=== PATIENT | female | born 1950 | race Caucasian/White ===

== ENCOUNTER 2016-03-31 01:31 | Emergency (ER) | payer MEDICARE ==
[2016-03-31] MEDS ORDERED: HYDROcod/ACETAM 5/325 MG TABLET ONE (02:17)
[2016-03-31] MEDS ORDERED: HYDROcod/ACETAM 5/325 MG TABLET PO STA (02:20)
[2016-03-31] MEDS ORDERED: HYDROcod/ACET 5/325 Prepack 6 PO ONE ×2 (02:36→02:43)
[2016-03-31] MEDS ORDERED: DEXAMETHASONE 10 MG/ML VIAL PO STA (02:36)
[2016-03-31] MEDS ORDERED: CHERRY SYRUP 10 ML UDC PO ONE (02:43)
[2016-03-31] MEDS ORDERED: DEXAMETHASONE 10 MG/ML VIAL ONE (02:43)
== END 2016-03-31 03:00 | disposition home or self-care (01) ==
DX: S80.11XA Contusion of right lower leg, initial encounter (principal); W16.212A Fall in (into) filled bathtub causing other injury, initial encounter; Y93.E1 Activity, personal bathing and showering; Y92.002 Bathroom of unspecified non-institutional (private) residence as the place of occurrence of the external cause; F17.200 Nicotine dependence, unspecified, uncomplicated; I10 Essential (primary) hypertension
CPT/HCPCS: 73590; 99283; A9270

== ENCOUNTER 2016-06-28 02:39 | Outpatient (CLI) | payer MEDICARE | END 2016-06-28 02:40 | disposition critical access hospital (66) | DX: R07.9 Chest pain, unspecified (principal); R06.00 Dyspnea, unspecified; M54.9 Dorsalgia, unspecified | CPT/HCPCS: A0425; A0427 ==

== ENCOUNTER 2016-06-28 03:03 | Emergency (ER) | payer MEDICARE ==
[2016-06-28] MEDS ORDERED: oxyCODONE 5 MG TABLET PO STA (04:50)
[2016-06-28] MEDS ORDERED: CYCLOBENZAPRINE 10 MG TABLET PO STA (04:51)
[2016-06-28] MEDS ORDERED: CYCLOBENZAPRINE 10 MG TABLET PO ONE ×2 (04:56→04:59)
[2016-06-28] MEDS ORDERED: oxyCODONE 5 MG TABLET ONE (04:56)
== END 2016-06-28 05:11 | disposition home or self-care (01) ==
DX: M54.9 Dorsalgia, unspecified (principal); G89.29 Other chronic pain; R07.9 Chest pain, unspecified; I10 Essential (primary) hypertension; F17.200 Nicotine dependence, unspecified, uncomplicated
CPT/HCPCS: 36415; 71020; 80048; 85025; 99283; A9270

== ENCOUNTER 2017-02-09 11:23 | Emergency (ER) | payer MEDICARE ==
--- NOTE | 2017-02-09 13:33 | ED Physician Documentation ---
History of Present Illness - Stated complaint Stated Complaint: KNEE GIVING OUT - Chief complaint Chief Complaint: Trauma Ext - History obtained from History obtained from: Patient (pt states that for the past several days she has had pain in her right knee. she has been told that she has arthritis there. has swelling. no specific trauma, states that her knee "gives out".) Review of Systems Constitutional: denies: Fever, Chills Cardiac: denies: Chest pain / pressure Respiratory: denies: Dyspnea, Cough GI: denies: Abdominal Pain, Nausea, Vomiting : denies: Dysuria Skin: denies: Rash, Lesions Musculoskeletal: reports: Joint pain (right knee), Joint swelling (right knee). denies: Neck pain, Back pain Neurologic: denies: Generalized weakness, Syncope PD PAST MEDICAL HISTORY - Past Medical History Cardiovascular: Hypertension Respiratory: None Neuro: None Endocrine/Autoimmune: None GI: None FUNDING SPECIALIST: None : None HEENT: None Psych: None Musculoskeletal: Chronic back pain Derm: None - Past Surgical History Past Surgical History: Yes General: Cholecystectomy, Hiatal hernia repair Ortho: Carpal Tunnel surgery /FUNDING SPECIALIST: Hysterectomy - Present Medications Home Medications: Ambulatory Orders Medication Instructions Recorded Confirmed Atenolol 50 mg PO DAILY 09/01/13 02/09/17 Cyclobenzaprine [Flexeril] 10 mg PO TID PRN #20 tablet 03/27/15 02/09/17 Oxycodone HCl/Acetaminophen 1 - 2 each PO Q6H PRN #14 tablet 03/27/15 02/09/17 [Percocet 5-325 mg Tablet] HYDROcod/ACETAM 5/325 [[place] 5/325] 1 - 2 ea PO Q6H PRN #15 tablet 03/31/1602/14 Cyclobenzaprine [Flexeril] 10 mg PO TID PRN #20 tablet 06/28/16 02/09/17 hydroCHLOROthiazide 1 tab PO DAILY 06/28/16 02/09/17 [Hydrochlorothiazide] oxyCODONE/ACET 5/325 [Percocet 5 1 - 2 each PO Q6H PRN #14 tablet 06/28/1602/09 mg/325 mg] - Allergies Allergies/Adverse Reactions: Allergies Allergy/AdvReac Type Severity Reaction Status Date / Time Penicillins Allergy Hives Verified 02/09/17 11:53 - Social History Does the pt smoke?: Yes Smoking Status: Current every day smoker Does the pt drink ETOH?: Yes Does the pt have substance abuse?: No - Immunizations Immunizations are current?: Yes - POLST Patient has POLST: No PD ED PE NORMAL - Vitals Vital signs reviewed: Yes - General General: Alert and oriented X 3 - Cardiac Cardiac: Strong equal pulses (right DP) - Derm Derm: Normal color, Warm and dry, No rash - Extremities Extremities: No deformity, No calf tenderness / cord. No: No tenderness to palpate (TTP along medial and lateral joint line and most of the tenderness along the medial hamstring tendon. ), No edema - Neuro Neuro: Alert and oriented X 3, Other (senstion intact to right LE) - Psych Psych: Normal mood, Normal affect Results - Vitals Vitals: Vital Signs - 24 hr 02/09/17 11:37 Temperature 36.3 C L Heart Rate 75 Respiratory 20 Rate O2 Saturation 96 Oxygen O2 Source Room air PD MEDICAL DECISION MAKING - ED course Complexity details: d/w patient ED course: pt with chronic right knee pain. has some swelling of the knee. no instability. has had X-rays in the past. has appointment with ortho after the first of the year. will hold on X-rays today. doubt fracture. pt with TTP along the medical hamstring and joint line medial and lateral. doubt septic joint. pt given crutches. She will follow up as scheduled. Departure - Departure Disposition: Home, Self Care Clinical Impression: Knee injury Condition: Good Instructions: ED RICE Follow-Up: Valeriy Devi MD [Primary Care Provider] - Comments: Use the crutches as directed. Keep your follow up appointment in March. Return to the ER for any new or worsening symptoms.
== END 2017-02-09 13:49 | disposition home or self-care (01) ==
LOC: ED 11:23
DX: S89.91XA Unspecified injury of right lower leg, initial encounter (principal); X58.XXXA Exposure to other specified factors, initial encounter; I10 Essential (primary) hypertension; F17.200 Nicotine dependence, unspecified, uncomplicated
CPT/HCPCS: 99283

== ENCOUNTER 2017-05-08 17:06 | Emergency (ER) | payer MEDICARE ==
[2017-05-08] MEDS ORDERED: predniSONE 20 MG TABLET PO STA (19:00)
[2017-05-08] MEDS ORDERED: diphenhydrAMINE 25 MG CAPSULE PO STA (19:00)
--- NOTE | 2017-05-08 19:03 | ED Physician Documentation ---
History of Present Illness - Stated complaint Stated Complaint: HIVES - Chief complaint Chief Complaint: General - History obtained from History obtained from: Patient - History of Present Illness Timing: Today Pain level max: 4 Pain level now: 3 Improved by: nothing Worsened by: nothing - Additonal information Additional information: Patient is a 66-year-old female who is on clindamycin for a dental infection. She states she broke out in a rash over the past 24 hours. Took Zantac without relief. Review of Systems Constitutional: denies: Fever, Chills Nose: denies: Rhinorrhea / runny nose, Congestion Throat: reports: Dental pain / toothache (L upper premolar pain). denies: Sore throat Cardiac: denies: Chest pain / pressure Respiratory: denies: Cough GI: denies: Vomiting Musculoskeletal: denies: Neck pain, Back pain PD PAST MEDICAL HISTORY - Past Medical History Cardiovascular: Hypertension Respiratory: None Neuro: None Endocrine/Autoimmune: None GI: None BACK HAND: None : None HEENT: None Psych: None Musculoskeletal: Chronic back pain Derm: None - Past Surgical History Past Surgical History: Yes General: Cholecystectomy, Hiatal hernia repair Ortho: Carpal Tunnel surgery /BACK HAND: Hysterectomy - Present Medications Home Medications: Ambulatory Orders Medication Instructions Recorded Confirmed Atenolol 50 mg PO DAILY 09/01/13 02/09/17 Cyclobenzaprine [Flexeril] 10 mg PO TID PRN #20 tablet 03/27/15 02/09/17 Oxycodone HCl/Acetaminophen 1 - 2 each PO Q6H PRN #14 tablet 03/27/15 02/09/17 [Percocet 5-325 mg Tablet] HYDROcod/ACETAM 5/325 [[place] 5/325] 1 - 2 ea PO Q6H PRN #15 tablet 03/31/1602/14 Cyclobenzaprine [Flexeril] 10 mg PO TID PRN #20 tablet 06/28/16 02/09/17 hydroCHLOROthiazide 1 tab PO DAILY 06/28/16 02/09/17 [Hydrochlorothiazide] oxyCODONE/ACET 5/325 [Percocet 5 1 - 2 each PO Q6H PRN #14 tablet 06/28/1602/09 mg/325 mg] Doxycycline Hyclate 100 mg PO BID #20 tablet 05/08/17 predniSONE [Prednisone] 40 mg PO DAILY #10 tablet 05/08/17 - Allergies Allergies/Adverse Reactions: Allergies Allergy/AdvReac Type Severity Reaction Status Date / Time clindamycin Allergy Rash Verified 05/08/17 18:13 Penicillins Allergy Hives Verified 02/09/17 11:53 - Social History Does the pt smoke?: Yes Smoking Status: Current every day smoker Does the pt drink ETOH?: Yes Does the pt have substance abuse?: No - Immunizations Immunizations are current?: Yes - POLST Patient has POLST: No PD ED PE NORMAL - Vitals Vital signs reviewed: Yes - General General: Alert and oriented X 3, No acute distress - HEENT HEENT: PERRL, Moist mucous membranes, Pharynx benign - Neck Neck: Supple, no meningeal sign - Cardiac Cardiac: RRR - Respiratory Respiratory: No respiratory distress, Clear bilaterally - Derm Derm: Warm and dry, Other (Diffuse maculopapular exanthem, greatest over the face neck and trunk. Excoriation case present. Blanches easily) - Neuro Neuro: Alert and oriented X 3 - Psych Psych: Normal mood, Normal affect PD ED PE EXPANDED - HEENT HEENT Visual: 1 - tenderness (dental decay present. no abscess.) Results - Vitals Vitals: Vital Signs - 24 hr 05/08/17 05/08/17 18:11 19:06 Temperature 36.9 C 36.8 C Heart Rate 77 74 Respiratory 18 18 Rate Blood Pressure 138/88 H 154/95 H O2 Saturation 95 96 Oxygen O2 Source Room air PD MEDICAL DECISION MAKING - ED course Complexity details: considered differential, d/w patient ED course: Patient is a 66-year-old female who presents to the emergency department what appears to be an allergic reaction to clindamycin. We will have her stop this. We will transition her to doxycycline for her dental infection. She is well- appearing, nontoxic. No stridor. No wheezing. No anaphylaxis. Also will start on steroids. Also will utilize Benadryl at home. Patient counseled regarding signs and symptoms for which I believe and urgent re-evaluation would be necessary. Patient with good understanding of and agreement to plan and is comfortable going home at this time This document was made in part using voice recognition software. While efforts are made to proofread this document, sound alike and grammatical errors may occur. Departure - Departure Disposition: 01 Home, Self Care Clinical Impression: Drug eruption Condition: Good Instructions: ED Drug React Allergic Follow-Up: Valeriy Devi MD [Primary Care Provider] - Within 1 week Prescriptions: Doxycycline Hyclate 100 mg PO BID #20 tablet predniSONE [Prednisone] 40 mg PO DAILY #10 tablet Comments: Stop the clindamycin. Return if you worsen. Discharge Date/Time: 05/08/17 19:11
[2017-05-08 19:07] VITALS: BP 154/95
== END 2017-05-08 19:11 | disposition home or self-care (01) ==
LOC: ED 17:06
DX: L27.0 Generalized skin eruption due to drugs and medicaments taken internally (principal); T36.8X5A Adverse effect of other systemic antibiotics, initial encounter; I10 Essential (primary) hypertension; F17.200 Nicotine dependence, unspecified, uncomplicated; K04.7 Periapical abscess without sinus
CPT/HCPCS: 99283; A9270; J7512

== ENCOUNTER 2018-02-27 23:41 | Outpatient (CLI) | payer MEDICARE | END 2018-02-27 23:59 | disposition critical access hospital (66) | LOC: EMS 23:41 | PROVIDERS: ATTEND Surgery | DX: R07.9 Chest pain, unspecified (principal) | CPT/HCPCS: A0425; A0427 ==

== ENCOUNTER 2018-02-28 00:04 | Observation (INO) | payer MEDICARE ==
[2018-02-28] MEDS ORDERED: NITROGLYCERIN SL 0.4 MG TABLET SL STA (00:24)
--- NOTE | 2018-02-28 00:28 | ED Physician Documentation ---
History of Present Illness - Stated complaint Stated Complaint: CHEST PAIN - Chief complaint Chief Complaint: Cardiac - Additonal information Additional information: hx from pt 67 female to ED with chest discomfort sometimes dull ache sometimes sharp occurred and was mild 3 days ago got better when she went to sleep possibly some mild pain in between no specific precipitating or palliating factors but then tonight severe pain 6/10 rad to left jaw tingling to L arm no SOA no abd pain no NVD bing LE edema and L leg is painful no personal hx CAD but family hx of same has HTN denies HLD and DM occ smoker severe stress recently - and some EtOH 2/2 the stress Review of Systems Constitutional: denies: Fever, Chills, Sweats Cardiac: reports: Chest pain / pressure Respiratory: denies: Dyspnea GI: denies: Abdominal Pain, Nausea, Vomiting, Diarrhea Musculoskeletal: reports: Extremity pain (LLE), Extremity swelling (both LE) Neurologic: denies: Generalized weakness Endocrine: denies: Easy bruising / bleeding Immunocompromised: denies: Immunocompromised PD PAST MEDICAL HISTORY - Past Medical History Past Medical History: Yes Cardiovascular: Hypertension Respiratory: None Endocrine/Autoimmune: None GI: None 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 : None HEENT: None Psych: None Musculoskeletal: Chronic back pain Derm: None - Past Surgical History Past Surgical History: Yes General: Cholecystectomy, Hiatal hernia repair Ortho: Carpal Tunnel surgery /LAND USE PLANNER: Hysterectomy - Present Medications Home Medications: Ambulatory Orders Medication Instructions Recorded Confirmed Atenolol 50 mg PO DAILY 09/01/13 02/28/18 HYDROcod/ACETAM 5/325 [[place] 5/325] 1 - 2 ea PO Q6H PRN #15 tablet 03/31/16 02/28/18 Cyclobenzaprine [Flexeril] 10 mg PO TID PRN #20 tablet 06/28/16 02/28/18 hydroCHLOROthiazide 1 tab PO DAILY 06/28/16 02/28/18 [Hydrochlorothiazide] - Allergies Allergies/Adverse Reactions: Allergies Allergy/AdvReac Type Severity Reaction Status Date / Time clindamycin Allergy Rash Verified 02/28/18 00:24 Penicillins Allergy Hives Verified 02/28/18 00:24 Iodine and Iodide Containing AdvReac Emesis Verified 02/28/18 01:13 Produc - Social History Does the pt smoke?: Yes Smoking Status: Current every day smoker Does the pt drink ETOH?: Yes Does the pt have substance abuse?: No - Immunizations Immunizations are current?: Yes - POLST Patient has POLST: No PD ED PE NORMAL - Vitals Vital signs reviewed: Yes - General General: Alert and oriented X 3 - HEENT HEENT: PERRL - Neck Neck: Supple, no meningeal sign - Cardiac Cardiac: RRR - Respiratory Respiratory: No respiratory distress - Abdomen Abdomen: Soft, Non tender - Derm Derm: Normal color - Extremities Extremities: No calf tenderness / cord (+ TTP L calf). 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 2-12 intact, No motor deficit, No sensory deficit, Normal speech Eye Opening: Spontaneous Motor: Obeys Commands Verbal: Oriented GCS Score: 15 Results - Vitals Vitals: Vital Signs - 24 hr 02/28/18 02/28/18 02/28/18 00:05 00:19 00:23 Temperature 36.6 C Heart Rate 89 79 81 Respiratory 13 13 Rate Blood Pressure 150/109 H 150/109 H 144/84 H Blood Pressure 150/109 H [Left] Blood Pressure 144/84 H [Right] O2 Saturation 95 96 96 02/28/18 02/28/18 02/28/18 00:33 00:45 00:50 Temperature Heart Rate 87 99 86 Respiratory 28 H 18 16 Rate Blood Pressure 101/70 121/89 H 102/68 Blood Pressure [Left] Blood Pressure [Right] O2 Saturation 94 94 95 02/28/18 02/28/18 02/28/18 01:06 01:44 02:05 Temperature 36.4 C L Heart Rate 79 82 79 Respiratory 28 H 16 17 Rate Blood Pressure 104/55 L 103/69 154/132 H Blood Pressure [Left] Blood Pressure [Right] O2 Saturation 95 95 98 02/28/18 02:21 Temperature Heart Rate 78 Respiratory 17 Rate Blood Pressure 121/80 Blood Pressure [Left] Blood Pressure [Right] O2 Saturation 100 Oxygen O2 Source Room air - EKG (time done) 0009 Rate: Rate (enter#) (88) Rhythm: NSR Cochran: LAD Intervals: Normal CA Ischemia: Non specific changes (flat T waves precordial leads) Compare to prior EKG: Other (similar to 2013 EKG) - Labs Labs: Laboratory Tests 02/28/18 02/28/18 02/28/18 00:15 00:15 00:15 WBC 10.6 RBC 4.55 Hgb 14.5 Hct 42.5 MCV 93.2 MCH 31.9 H MCHC 34.2 RDW 14.2 Plt Count 188 MPV 8.3 Neut # (Auto) 5.3 Lymph # (Auto) 4.1 H Kend[place] # (Auto) 0.9 Eos # (Auto) 0.2 Baso # (Auto) 0.1 Absolute Nucleated RBC 0.01 Nucleated RBC % 0.0 Sodium 128 L Potassium 3.1 L Chloride 90 L Carbon Dioxide 26 Anion Gap 12.0 BUN 14 Creatinine 0.5 Estimated GFR (MDRD) 123 Glucose 93 Calcium 8.7 Total Bilirubin 0.9 AST 40 ALT 19 Alkaline Phosphatase 77 Troponin I < 0.04 Total Protein 7.9 Albumin 4.1 Globulin 3.8 Albumin/Globulin Ratio 1.1 Lipase 35 - Rads (name of study) CTPA Radiology: See rad report (normal - no PE) PD MEDICAL DECISION MAKING - ED course ED course: pt given asa en route pain relieved with nitro sl X 2 EKG non specific trop neg had LLE pain and bing LE edema - her allergy to IV con and CT are NV from c ontrast and claustrophobia - pretreated with zofran and ativan and pt did fine pain has been off and on for several days not constant, worse tonight HEART score of 5 merits observation for serial trop, echo, hopefully stress test called hospitalist at 0255 and he called back immed and agrees to place in obs Departure - Departure Disposition: ED Place in Observation Clinical Impression: Chest pain Qualifiers: Chest pain type: unspecified Qualified Code(s): R07.9 - Chest pain, unspecified Condition: Good
[2018-02-28 00:32] LABS: BASOPHILS # (AUTO) 0.1 10^3/uL (0.0-0.1); BASOPHILS % (AUTO) 0.9 %; EOSINOPHILS # (AUTO) 0.2 10^3/uL (0.0-0.7); EOSINOPHILS % (AUTO) 1.8 %; HGB - HEMOGLOBIN 14.5 g/dL (12.0-16.0); LYMPHOCYTES # (AUTO) 4.1 10^3/uL (1.5-3.5); LYMPHOCYTES % (AUTO) 38.8 %; MEAN CORPUSCULAR HEMOGLOBIN 31.9 pg (27.0-31.0); MEAN CORPUSCULAR HGB CONC 34.2 g/dL (32.0-36.0); MEAN CORPUSCULAR VOLUME 93.2 fL (81.0-99.0); MEAN PLATELET VOLUME 8.3 fL (7.9-10.8); MONOCYTES # (AUTO) 0.9 10^3/uL (0.0-1.0); MONOCYTES % (AUTO) 8.9 %; NEUTROPHILS # (AUTO) 5.3 10^3/uL (1.5-6.6); NEUTROPHILS % (AUTO) 49.6 %; PLT - PLATELET COUNT 188 10^3/uL (130-450); RED BLOOD COUNT 4.55 10^6/uL (4.20-5.40); RED CELL DISTRIBUTION WIDTH 14.2 % (12.0-15.0); WHITE BLOOD COUNT 10.6 x10^3/uL (4.8-10.8)
[2018-02-28 00:38] LABS: ALBUMIN 4.1 g/dL (3.2-5.5); ALBUMIN/GLOBULIN RATIO 1.1 (1.0-2.2); BILIRUBIN,TOTAL 0.9 mg/dL (0.2-1.0); CALCIUM 8.7 mg/dL (8.5-10.3); CREATININE 0.5 mg/dL (0.4-1.0); TOTAL PROTEIN 7.9 g/dL (6.7-8.2)
[2018-02-28] MEDS ORDERED: POTASSIUM CHLOR 10 MEQ/100 ML 10 MEQ/100 ML BAG IV STA (00:48)
[2018-02-28] MEDS ORDERED: SODIUM CHLORIDE 0.9% 500 ML IV ONE (01:01)
[2018-02-28] MEDS ORDERED: ONDANSETRON 4 MG/2 ML VIAL IVP STA (01:19)
[2018-02-28] MEDS ORDERED: LORazepam 2 MG/ML VIAL IVP STA (01:19)
[2018-02-28] MEDS ORDERED: IOPAMIDOL-370 100 ML VIAL ONE (01:23)
[2018-02-28] MEDS ORDERED: IOVERSOL 320 100 ML VIAL IVP ONE ×3 (02:14→16:54)
--- NOTE | 2018-02-28 02:31 | CT Report ---
Reason: cp and LLMatthias hua TTP Procedure Date: 02/28/2018 Accession Number: [id number] / [id number] Procedure: CT - Chest Angio (PE) CPT Code: FULL RESULT: EXAM: CT ANGIOGRAM CHEST EXAM DATE: 02/28/2018 02:12 AM. CLINICAL HISTORY: Cp and INDIO hua TTP. COMPARISON: None. TECHNIQUE: Routine helical imaging was performed through the chest in the pulmonary arterial phase. IV Contrast: 80 ML OPTIRAY 320. Reconstructions: Coronal 3-D MIP reconstructions.Sagittal and coronal. In accordance with CT protocol optimization, one or more of the following dose reduction techniques were utilized for this exam: automated exposure control, adjustment of mA and/or KV based on patient size, or use of iterative reconstructive technique. FINDINGS: Pulmonary Arteries: Diagnostic quality: Adequate through the segmental arteries. No evidence for acute or chronic pulmonary emboli. RV/LV is within normal limits. There is no interventricular septal bowing. There is no reflux of contrast material in the IVC. Lungs/Pleura: No consolidation, nodules, or edema. No effusions or pneumothorax. Mediastinum: Normal. No cardiac enlargement or adenopathy. Thoracic Aorta: Unremarkable. Upper Abdomen: Postoperative changes of cholecystectomy. Other: None. IMPRESSION: Normal pulmonary CT angiogram. No pulmonary emboli. RADIA
[2018-02-28] MEDS ORDERED: TEMAZEPAM 15 MG CAPSULE PO PRN (02:57)
[2018-02-28] MEDS ORDERED: HYDROcod/ACETAM 5/325 MG TABLET PO PRN (02:57)
[2018-02-28] MEDS ORDERED: ONDANSETRON 4 MG/2 ML VIAL IVP PRN (02:57)
[2018-02-28] MEDS ORDERED: SODIUM CHLORIDE FLUSH 0.9% 10 ML SYRINGE IVP PRN (02:57)
[2018-02-28] MEDS ORDERED: MORPHINE 2 MG/ML CARPUJECT IVP PRN (02:57)
[2018-02-28] MEDS ORDERED: PROCHLORPERAZINE 10 MG/2 ML VIAL IVP PRN (02:57)
[2018-02-28] MEDS ORDERED: ACETAMINOPHEN 325 MG TABLET PO PRN (02:57)
[2018-02-28] MEDS ORDERED: SODIUM CHLORIDE 0.9% 1,000 ML IV SCH (03:00)
[2018-02-28] MEDS ORDERED: CYCLOBENZAPRINE 10 MG TABLET PO PRN (03:03)
[2018-02-28] MEDS ORDERED: POTASSIUM CHLORIDE 20 MEQ TABLET PO STA (03:03)
[2018-02-28] MEDS ORDERED: hydrALAZINE INJ 20 MG/ML VIAL IVP PRN (03:04)
[2018-02-28 03:41] LABS: BUN - BLOOD UREA NITROGEN 12 mg/dL (6-20); CALCIUM 8.4 mg/dL (8.5-10.3); CARBON DIOXIDE - CO2 26 mmol/L (21-32); CHLORIDE 93 mmol/L (101-111); CHOL/HDL RATIO 4.4 (<4.4); CHOLESTEROL 209 mg/dL; CREATININE 0.6 mg/dL (0.4-1.0); GFR - MDRD 100 (>89); GLUCOSE 82 mg/dL (70-100); HDL CHOLESTEROL 47 mg/dL; LDL CHOLESTEROL,CALCULATED 87 mg/dL; LDL/HDL RATIO 1.9 (<4.4); SODIUM 131 mmol/L (135-145); VLDL CHOLESTEROL 75 mg/dL
[2018-02-28] MEDS ORDERED: LORazepam 2 MG/ML VIAL IVP PRN (06:46)
[2018-02-28] MEDS ORDERED: NITROGLYCERIN SL 0.4 MG TABLET SL PRN (06:47)
--- NOTE | 2018-02-28 06:49 | HISTORY & PHYSICAL EXAMINATION ---
Chief Complaint - Chief Complaint Chief Complaint: Chest Pain History of Present Illness - Admitted From Admitted From:: Emergency department - History Obtained From Records Reviewed: ED records History obtained from: Patient and ED physician Exam Limitations: None - History of Present Illness HPI Comment/Other: Patient is a 67-year-old female with a past medical history of hypertension, intermittent smoking, who presents to the emergency room with 2 days of progressively worsening and intermittent left-sided chest pain with radiation to the neck and left jaw, which is exacerbated by activity. Patient states that without any known provocation, she noticed chest pain with radiation and tingling in the left arm that worsens with radiation the last couple of days, which improved when she took an aspirin at home. She finally came to the emergency room where the evaluation was initiated for acute coronary syndrome. The initial troponin was negative and EKG showed only some flattening of T waves but otherwise no specific concerning findings. After observation and improvement with nitroglycerin and aspirin in the emergency room, I was asked to admit the patient into observation status for ruling out [place]. Patient has not had any prior cardiac episodes, and has never had a stress test before. History - Past Medical History Cardiovascular: reports: Hypertension Respiratory: reports: None Neuro: reports: None Endocrine/Autoimmune: reports: None GI: reports: None CORPORATE PLANNING MANAGER: reports: None : reports: None HEENT: reports: None Psych: reports: None Musculoskeletal: reports: Chronic back pain Derm: reports: None MRSA Hx?: No - Past Surgical History General: reports: Cholecystectomy, Hiatal hernia repair Ortho: reports: Carpal Tunnel surgery /CORPORATE PLANNING MANAGER: reports: Hysterectomy - Family & Social History Family History: Mother: CAD, CVA/TIA, Father: CAD Living arrangement: At home Living Situation: With spouse/s.o. - Substance History Use: Uses substance without health or social issues: Tobacco - POLST Patient has POLST: No POLST Status: Patient wants CPR but no intubation Meds/Allgy - Home Medications Home Medications: Ambulatory Orders Medication Instructions Recorded Confirmed Atenolol 50 mg PO DAILY 09/01/13 02/28/18 HYDROcod/ACETAM 5/325 [[place] 5/325] 1 - 2 ea PO Q6H PRN #15 tablet 03/31/16 02/28/18 Cyclobenzaprine [Flexeril] 10 mg PO TID PRN #20 tablet 06/28/16 02/28/18 hydroCHLOROthiazide 1 tab PO DAILY 06/28/16 02/28/18 [Hydrochlorothiazide] - Allergies Allergies/Adverse Reactions: Allergies Allergy/AdvReac Type Severity Reaction Status Date / Time clindamycin Allergy Rash Verified 02/28/18 00:24 Penicillins Allergy Hives Verified 02/28/18 00:24 Iodine and Iodide Containing AdvReac Emesis Verified 02/28/18 01:13 Produc Review of Systems - Constitutional Constitutional: denies: Fatigue, Fever, Chills - Eyes Eyes: denies: Pain - Ears, Nose & Throat Ears, Nose & Throat: denies: Ear pain, Hearing loss, Hearing aids - Cardiovascular Cariovascular: reports: Chest pain, Exertional dyspnea, Decr. exercise tolerance. denies: Irregular heart rate, Palpitations, Edema, Lightheadedness, Syncope, Orthopnea - Respiratory Respiratory: reports: SOB with exertion. denies: Cough, Sputum production, Wheezing, Snoring, Orthopnea, SOB at rest - Gastrointestinal Gastrointestinal: denies: Abdominal pain - Genitourinary Genitourinary: denies: Dysuria - Musculoskeletal Musculoskeletal: reports: Muscle pain - All Other Systems All Other Systems: reports: Reviewed and negative Prior Level of Functionality: Independent Exam - Vital Signs Reviewed Vital Signs: Yes Vital Signs: Vital Signs x48h Temp Pulse Pulse Resp BP BP BP 02/28/18 04:27 02/28/18 04:25 02/28/18 04:19 36.5 C 79 22 118/65 02/28/18 03:45 36.3 C L 85 22 101/58 L 02/28/18 03:04 36.3 C L 77 18 108/68 02/28/18 02:57 75 14 145/72 H 02/28/18 02:21 78 17 121/80 02/28/18 02:05 79 17 154/132 H 02/28/18 01:44 82 16 103/69 02/28/18 01:06 36.4 C L 79 28 H 104/55 L 02/28/18 00:50 86 16 102/68 02/28/18 00:45 99 18 121/89 H 02/28/18 00:33 87 28 H 101/70 02/28/18 00:23 81 13 144/84 H 02/28/18 00:19 79 13 150/109 H 02/28/18 00:05 36.6 C 89 150/109 H 150/109 H BP Pulse Ox 02/28/18 04:27 98 02/28/18 04:25 91 L 02/28/18 04:19 98 02/28/18 03:45 99 02/28/18 03:04 99 02/28/18 02:57 95 02/28/18 02:21 100 02/28/18 02:05 98 02/28/18 01:44 95 02/28/18 01:06 95 02/28/18 00:50 95 02/28/18 00:45 94 02/28/18 00:33 94 02/28/18 00:23 96 02/28/18 00:19 96 02/28/18 00:05 144/84 H 95 - Physical Exam General Appearance: positive: No acute distress Eyes Bilateral: positive: Normal inspection ENT: positive: ENT inspection nml Neck: positive: Nml inspection, Thyroid nml Respiratory: positive: No respiratory distress, Other (There is tenderness to the chest wall at the left superior aspect) Cardiovascular: positive: Regular rate & rhythm, No murmur, No gallop. negative: Tachycardia, Bradycardia Abdomen: positive: Non-tender, No organomegaly, Nml bowel sounds Skin: positive: Color nml, No rash, Warm Extremities: positive: Non-tender, No pedal edema Neurologic/Psychiatric: positive: Oriented x3, CN's nml (2-12), Motor nml Conclusion/Plan - Problem List (1) Chest pain Conclusion/Plan: Patient has significant risk factors including age, family history, smoking, and history of heavy alcohol use. She also has chest pain that improved with aspirin and nitroglycerin and worsens with exacerbation. Her workup is so far reassuring, including the labs and CT angiogram. It is however somewhat tender to palpation along the chest wall, but given her risk factors I agree with the admission for observation status to continue serial troponins and stress test, echocardiogram, to rule out for acute coronary syndrome and further guide treatment. In the meantime, we will continue aspirin and nitroglycerin and blood pressure control and initiate statin. Qualifiers: Chest pain type: precordial pain Qualified Code(s): R07.2 - Precordial pain (2) Hypertension Conclusion/Plan: Blood pressures currently well controlled, she takes atenolol at home but I will hold this for the purpose of the exercise stress test and have allowed for as needed hydralazine. After the stress test, likely can resume her home medication. Qualifiers: Hypertension type: essential hypertension Qualified Code(s): I10 - [place] l (primary) hypertension (3) Hypokalemia Conclusion/Plan: Mild hypokalemia, initiated potassium replacement. (4) Hyponatremia Conclusion/Plan: Mild hyponatremia, no clear underlying etiology. Will administer IV fluids and follow-up serial metabolic panel. (5) Hyperlipidemia Conclusion/Plan: Fasting labs demonstrate significant hyperlipidemia, will start the patient on a statin. Qualifiers: Hyperlipidemia type: mixed hyperlipidemia Qualified Code(s): E78.2 - Mixed hyperlipidemia (6) Chronic back pain Conclusion/Plan: Chronic back pain, continue home pain medications as needed. - Lab Results Lab results reviewed: Yes Fish Bones: 02/28/18 00:15 02/28/18 03:16 - Diagnostic Imaging Results Diagnostic Imaging Results: positive: Final report reviewed - EKG Results EKG Interpreted Independently: Yes EKG Comparison: Old EKG unavailable - Other Other Results/Comments: Nonspecific T wave flattening, no ST segment depression or elevation Core Measures - Anticipated LOS I expect patient to be DC'd or transferred within 96 hours.: Yes - DVT/VTE - Prophylaxis VTE/DVT Device ordered at admit?: Yes - AMI - Statin at Admit Aspirin Prescribed on Admit: Yes
[2018-02-28] MEDS ORDERED: PANTOPRAZOLE 40 MG TABLET PO SCH (07:00)
[2018-02-28] MEDS ORDERED: POTASSIUM CHLORIDE 20 MEQ TABLET PO ONE (07:26)
[2018-02-28] MEDS ORDERED: IBUPROFEN 600 MG TABLET PO PRN (08:19)
[2018-02-28] MEDS ORDERED: hydroCHLOROthiazide 25 MG TABLET PO SCH (09:00)
[2018-02-28] MEDS ORDERED: ASPIRIN EC 81 MG TABLET PO SCH (09:00)
[2018-02-28] MEDS ORDERED: LISINOPRIL 20 MG TABLET PO SCH (09:00)
[2018-02-28] MEDS ORDERED: ASPIRIN 325 MG TABLET PO SCH (09:00)
[2018-02-28] MEDS ORDERED: SODIUM CHLORIDE FLUSH 0.9% 10 ML SYRINGE IVP SCH (09:00)
[2018-02-28] MEDS ORDERED: IBUPROFEN 600 MG TABLET PO SCH (09:00)
[2018-02-28] MEDS ORDERED: POLYETHYLENE GLYCOL 3350 17 GM PACKET PO SCH (09:00)
[2018-02-28] MEDS ORDERED: REGADENOSON 0.4 MG/5 ML SYRINGE IVP ONE ×2 (11:20→13:44)
--- NOTE | 2018-02-28 12:41 | PROCEDURE REPORT ---
Hospitalist Procedure Note - Procedure Note Procedure Note: EKG stress test Impression: Patient had no shortness of breath, chest pain or palpitations with stress or prior to starting stress test. Patient had no EKG changes during the stress test. Prior to stress test patient did have some flattened T waves in the inferior leads but these remained unchanged throughout stress test. Patient's blood pressure remained stable and patient had no complaints. Overall this was a negative stress test Myocardial perfusion imaging is pending we will follow-up on these results.
--- NOTE | 2018-02-28 14:28 | Nuclear Medicine Report ---
Reason: chest pain Procedure Date: 02/28/2018 Accession Number: [id number] / [id number] Procedure: NM - Myocardial Perfusion STR/RST CPT Code: FULL RESULT: EXAM: SINGLE-ISOTOPE PHARMACOLOGICAL STRESS TEST WITH REGADENOSON. SINGLE-ISOTOPE AND ONE-DAY REST/STRESS MYOCARDIAL PERFUSION SCANS WITH TOMOGRAPHIC IMAGING, QUANTITATIVE ANALYSIS, WALL MOTION ANALYSIS AND CALCULATION OF EJECTION FRACTION. EXAM DATE: 02/28/2018 01:45 PM. CLINICAL HISTORY: Chest pain. COMPARISON: None. TECHNIQUE: After the intravenous administration of 9.9 mCi of Tc-99m sestamibi, a rest myocardial perfusion scan was done with tomography. Motion correction was applied when appropriate. After an appropriate delay, pharmacological stress was performed with the infusion of 0.4 mg regadenoson per protocol. According to protocol, 32.0 mCi of Tc-99m sestamibi was injected for stress myocardial perfusion scan. Motion correction was applied when appropriate. Gated tomographic images were obtained for wall motion analysis and computation of left ventricular ejection fraction. FINDINGS: Perfusion images: Left ventricular chamber size is normal at rest and unchanged at stress. No convincing fixed perfusion deficits. Small size region of mildly reduced uptake at the mid to basal inferolateral wall on stress images appears improved on rest images, suspicious for mild stress-induced ischemia. SSS 11, SRS 8, SDS 3. Gated images: No focal wall motion abnormality. Calculated left ventricular EDV 45 mL, ESV 2 mL. The left ventricular ejection fraction is estimated at 96% (normal > 50%). IMPRESSION: 1. Small size, mild severity reversible perfusion deficit at the mid to basal inferolateral wall, suspicious for mild stress-induced ischemia. 2. No convincing fixed perfusion deficits. 3. Left ventricular ejection fraction of 96% (normal > 50%). RADIA
[2018-02-28] MEDS ORDERED: ATENOLOL 25 MG TABLET PO SCH (15:00)
[2018-02-28 15:19] VITALS: BP 118/56
--- NOTE | 2018-02-28 15:44 | Discharge Plan ---
Discharge Plan Disposition: Home, Self Care Condition: Poor Prescriptions: Nitroglycerin [Nitrostat] 0.4 mg SL Q5MIN PRN #30 tablet PRN Reason: Chest Pain Aspirin [Adult Aspirin Regimen] 81 mg PO DAILY #15 tablet. Atorvastatin [Lipitor] 40 mg PO QPM #15 tablet Diet: Cardiac Activity Restrictions: Activity as Tolerated Shower Restrictions: No (fall precaution) Instruction Topics: ED Chest Pain Angina Stable, Atorvastatin tablets, Nitroglycerin Fast Act Dc, Aspirin ASA chewable tablets Additional Instructions or Follow Up instructions: You may followup your PCP in one week, followup a instructional systems specialist as out-pt. Your stress test reveals small size, mild severity reversible perfusion deficit, suspicious for mild stress-induced ischemia. Historical Site Guide was called. Historical Site Guide suggests it is a low risk, followup instructional systems specialist as out-pt, start Aspirin, beta-rea and Statin. Should your symptoms return or worsen, you may present ER, call 911 or your PCP for help No Smoking: If you smoke, Please STOP! Call for help. Follow-up with: Valeriy Devi MD [Primary Care Provider] -
--- NOTE | 2018-02-28 15:53 | DISCHARGE SUMMARY ---
"Discharge Summary Discharge Date: 02/28/18 Discharging Provider: DURBIN Primary Care Provider: Dr. Devi Condition at Discharge: Poor Discharge Disposition: 01 Home, Self Care Discharge Facility Name: home - DIAGNOSES Admission Diagnoses: (1) Chest pain (2) Hypertension (3) Hypokalemia (4) Hyponatremia (5) Hyperlipidemia (6) Chronic back pain Discharge Diagnoses with Status of Each Condition: 1) Chest pain pt has no more chest pain. serial troponin, EKG, and ECHO reveals unremarkable. stress test reveals small size, mild severity reversible perfusion deficit, suspicious for mild stress-induced ischemia. Manager Business Operations Dr. Jordy Pinto at [facility], was called. Manager Business Operations suggests it is a low risk, followup automotive service director as out-pt, start Aspirin, beta-rea and Statin. (2) Hypertension stable, continue home regimen, followup PCP (3) Hypokalemia replaced (4) Hyponatremia chronic hyponatremia, improved (5) Hyperlipidemia pt is prescribed lipitor (6) Chronic back pain stable, continue home regimen, follow up PCP - HPI History of Present Illness: refer from Dr. Cowan's HPI on 02/28/18 for pt as the following: Patient is a 67-year-old female with a past medical history of hypertension, intermittent smoking, who presents to the emergency room with 2 days of progressively worsening and intermittent left-sided chest pain with radiation to the neck and left jaw, which is exacerbated by activity. Patient states that without any known provocation, she noticed chest pain with radiation and tingling in the left arm that worsens with radiation the last couple of days, which improved when she took an aspirin at home. She finally came to the emergency room where the evaluation was initiated for acute coronary syndrome. The initial troponin was negative and EKG showed only some flattening of T waves but otherwise no specific concerning findings. After observation and improvement with nitroglycerin and aspirin in the emergency room, I was asked to admit the patient into observation status for ruling out [place]. Patient has not had any prior cardiac episodes, and has never had a stress test before. - CONSULTS | PROCEDURES Consultations: Manager Business Operations DR. Jordy Pinto - HOSPITAL COURSE Hospital Course: pt was admitted for chest pain. after treatment in hospital, pt has no more chest pain. pt's serial troponin, EKG, and ECHO reveals unremarkable. stress test reveals small size, mild severity reversible perfusion deficit, suspicious for mild stress-induced ischemia. Manager Business Operations Dr. Jordy Pinto at [facility], was called. Manager Business Operations suggests it is a low risk, followup automotive service director as out-pt, start Aspirin, beta-rea and Statin. - ALLERGIES Allergies/Adverse Reactions: Allergies Allergy/AdvReac Type Severity Reaction Status Date / Time clindamycin Allergy Rash Verified 02/28/18 00:24 Penicillins Allergy Hives Verified 02/28/18 00:24 Iodine and Iodide Containing AdvReac Emesis Verified 02/28/18 01:13 Produc - MEDICATIONS Home Medications: Ambulatory Orders Medication Instructions Recorded Confirmed Atenolol 50 mg PO DAILY 09/01/13 02/28/18 HYDROcod/ACETAM 5/325 [[place] 5/325] 1 - 2 ea PO Q6H PRN #15 tablet 03/31/16 02/28/18 Cyclobenzaprine [Flexeril] 10 mg PO TID PRN #20 tablet 06/28/16 02/28/18 hydroCHLOROthiazide 25 mg PO DAILY 06/28/16 02/28/18 [Hydrochlorothiazide] Aspirin [Adult Aspirin Regimen] 81 mg PO DAILY #15 tablet. 02/28/18 Atorvastatin [Lipitor] 40 mg PO QPM #15 tablet 02/28/18 Meloxicam 15 mg PO DAILY 02/28/18 02/28/18 Nitroglycerin [Nitrostat] 0.4 mg SL Q5MIN PRN #30 tablet 02/28/18 raNITIdine [Zantac] 150 mg PO BID 02/28/18 02/28/18 - PHYSICAL EXAM AT DISCHARGE General Appearance: positive: No acute distress, Alert. negative: Lethargic Eyes Bilateral: positive: Normal inspection, PERRL, No lid inflammation, Conju nctivae nml ENT: positive: ENT inspection nml, Pharynx nml, No signs of dehydration. negative: Purulent nasal drainage, Pharyngeal erythema, Oral lesions Neck: positive: Nml inspection, Thyroid nml, No JVD, Trachea midline. negative: Thyromegaly, Lymphadenopathy (R), Lymphadenopathy (L), Stiff neck, Swelling/bruising, Tracheal deviation Respiratory: positive: Chest non-tender, No respiratory distress, Breath sounds nml. negative: Wheezes, Rales, Rhonchi Cardiovascular: positive: Regular rate & rhythm, No murmur, No gallop. negative: Irregularly irregular, Extrasystoles, Tachycardia, Bradycardia, JVD present, Systolic murmur, Diastolic murmur Peripheral Pulses: positive: 2+ Abdomen: positive: Non-tender, No organomegaly, Nml bowel sounds, No distention. negative: Tenderness, Guarding, Rebound Back: positive: Nml inspection. negative: CVA tenderness (R), CVA tenderness (L) Skin: positive: Color nml, No rash, Warm, Dry. negative: Cyanosis, Diaphoresis, Pallor Extremities: positive: Non-tender, Full ROM, Nml appearance. negative: Calf tenderness, Joint swelling, Ne's sign/cords Neurologic/Psychiatric: positive: Oriented x3, Motor nml, Sensation nml, Mood/affect nml. negative: Weakness, Sensory loss, Facial droop, Slurred/abnml speech, Depressed mood/affect - LABS Result Diagrams: 02/28/18 00:15 02/28/18 03:16 - FOLLOW UP Follow Up: You may followup your PCP in one week, followup a automotive service director as out-pt. Your stress test reveals small size, mild severity reversible perfusion deficit, suspicious for mild stress-induced ischemia. Manager Business Operations was called. Manager Business Operations suggests it is a low risk, followup automotive service director as out-pt, start A spirin, beta-rea and Statin. Should your symptoms return or worsen, you may present ER, call 911 or your PCP for help - TIME SPENT Time Spent in Discharge (Minutes): 60"
[2018-02-28] MEDS ORDERED: ATORVASTATIN 40 MG TABLET PO SCH (21:00)
[2018-03-01] MEDS ORDERED: ASPIRIN EC 81 MG TABLET PO SCH (09:00)
== END 2018-02-28 16:55 | disposition home or self-care (01) ==
LOC: EDUNIT# → ED 00:04 → ICU 02:57 → MS2 04:08
PROVIDERS: ADMIT Family Medicine Sports Medicine; ATTEND Nurse Practitioner Gerontology
DX: R07.2 Precordial pain (principal); R94.39 Abnormal result of other cardiovascular function study; I10 Essential (primary) hypertension; E87.6 Hypokalemia; E87.1 Hypo-osmolality and hyponatremia; E78.5 Hyperlipidemia, unspecified; G89.29 Other chronic pain; M54.9 Dorsalgia, unspecified; Z66 Do not resuscitate; F17.200 Nicotine dependence, unspecified, uncomplicated; Z82.49 Family history of ischemic heart disease and other diseases of the circulatory system; Z79.891 Long term (current) use of opiate analgesic; Z79.899 Other long term (current) drug therapy
CPT/HCPCS: 36415; 71275; 78452; 80048; 80053; 80061; 83690; 84484; 85025; 93005; 93017; 93306; 96361; 96365; 96366; 96375; 96376; 99284; 99285; A9270; A9500; G0378; J2060; J2785; Q9967; 83721

== ENCOUNTER 2018-05-20 23:14 | Outpatient (CLI) | payer MEDICARE | END 2018-05-20 23:15 | disposition critical access hospital (66) | LOC: EMS 23:14 | PROVIDERS: ATTEND Surgery | DX: R07.9 Chest pain, unspecified (principal) | CPT/HCPCS: A0425; A0427 ==

== ENCOUNTER 2018-05-20 23:22 | Emergency (ER) | payer MEDICARE ==
--- NOTE | 2018-05-20 23:53 | ED Physician Documentation ---
History of Present Illness - Stated complaint Stated Complaint: LEFT SIDE RIB PAIN, ETOH - Chief complaint Chief Complaint: Cardiac - History obtained from History obtained from: Patient, EMS - History of Present Illness Timing: How many hours ago (approximately 2 hours prior to this evaluation) Pain level now: 8 Radiates to: LUE Improved by: nothing Worsened by: no apparent exacerbating factors - Additonal information Additional information: BIBA for c/o left chest pain with dyspnea. Pain radiates down LUE but she also c/o LUE weakness. T+R from [facility] in January 2018 for similar chest pain. She says she followed-up with a starchmaker in [place] and underwent cardiac cath; patient says "they cleared some blockage but told me there was nothing else they could do" (per patient) . BIBA and given aspirin PO and NTG paste to chest wall Review of Systems Constitutional: reports: Reviewed and negative Eyes: reports: Reviewed and negative Ears: reports: Reviewed and negative Nose: reports: Reviewed and negative Throat: reports: Reviewed and negative Cardiac: reports: Chest pain / pressure. denies: Palpitations, Pedal edema, Calf pain Respiratory: reports: Dyspnea. denies: Cough, Wheezing GI: reports: Reviewed and negative : denies: Dysuria, Frequency Skin: reports: Reviewed and negative Musculoskeletal: denies: Neck pain, Back pain Neurologic: reports: Focal weakness. denies: Generalized weakness, Numbness, Headache PD PAST MEDICAL HISTORY - Past Medical History Past Medical History: Yes Cardiovascular: Hypertension Respiratory: None Neuro: None Endocrine/Autoimmune: None GI: None AUDIO VIDEO MECHANIC: None : None HEENT: None Psych: None Musculoskeletal: Chronic back pain Derm: None - Past Surgical History Past Surgical History: Yes General: Cholecystectomy, Hiatal hernia repair Ortho: Carpal Tunnel surgery /AUDIO VIDEO MECHANIC: Hysterectomy - Present Medications Home Medications: Ambulatory Orders Medication Instructions Recorded Confirmed Atenolol 50 mg PO DAILY 09/01/13 05/21/18 HYDROcod/ACETAM 5/325 [[place] 5/325] 1 - 2 ea PO Q6H PRN #15 tablet 03/31/16 05/21/18 Cyclobenzaprine [Flexeril] 10 mg PO TID PRN #20 tablet 06/28/16 05/21/18 hydroCHLOROthiazide 25 mg PO DAILY 06/28/16 05/21/18 [Hydrochlorothiazide] Aspirin [Adult Aspirin Regimen] 81 mg PO DAILY #15 tablet. 02/28/18 05/21/18 Atorvastatin [Lipitor] 40 mg PO QPM #15 tablet 02/28/18 05/21/18 Meloxicam 15 mg PO DAILY 02/28/18 05/21/18 Nitroglycerin [Nitrostat] 0.4 mg SL Q5MIN PRN #30 tablet 02/28/18 05/21/18 raNITIdine [Zantac] 150 mg PO BID 02/28/18 05/21/18 - Allergies Allergies/Adverse Reactions: Allergies Allergy/AdvReac Type Severity Reaction Status Date / Time clindamycin Allergy Rash Verified 05/20/18 23:35 Penicillins Allergy Hives Verified 05/20/18 23:35 Iodine and Iodide Containing AdvReac Emesis Verified 05/20/18 23:35 Produc - Social History Does the pt smoke?: Yes Smoking Status: Current every day smoker Does the pt drink ETOH?: Yes Does the pt have substance abuse?: No - Immunizations Immunizations are current?: Yes - POLST Patient has POLST: No POLST Status: Patient wants CPR but no intubation PD ED PE NORMAL - Vitals Vital signs reviewed: Yes - General General: Alert and oriented X 3, Well developed/nourished, Other (appears to be uncomfortable due to pain) - HEENT HEENT: PERRL, EOMI, Moist mucous membranes - Neck Neck: Supple, no meningeal sign - Cardiac Cardiac: RRR, No murmur, No gallop, No rub - Respiratory Respiratory: No respiratory distress, Clear bilaterally - Abdomen Abdomen: Soft, Non tender, Non distended - Back Back: No CVA TTP - Derm Derm: Normal color, Warm and dry - Extremities Extremities: No edema - Neuro Neuro: Alert and oriented X 3, transmission design engineer 2-12 intact, No sensory deficit, Normal speech PD ED PE EXPANDED - Extremities Extremities: Other (weakness LUE and LLE (significant drift)) Results - Vitals Vitals: Vital Signs - 24 hr 05/20/18 05/20/18 05/21/18 23:31 23:35 00:20 Temperature 36.6 C Heart Rate 80 75 72 Respiratory 16 16 12 Rate Blood Pressure 120/108 H 135/86 H 129/80 O2 Saturation 99 100 97 05/21/18 05/21/1805/21/19 00:21 00:35 01:05 Temperature Heart Rate 75 79 75 Respiratory 15 17 12 Rate Blood Pressure 129/79 129/80 132/86 H O2 Saturation 100 96 95 05/21/18 05/21/18 05/21/18 01:44 02:14 03:05 Temperature Heart Rate 78 72 81 Respiratory 14 13 12 Rate Blood Pressure 113/89 H 112/72 118/72 O2 Saturation 96 96 94 05/21/18 05/21/18 05/21/18 04:43 05:47 06:02 Temperature Heart Rate 79 86 80 Respiratory 17 18 12 Rate Blood Pressure 118/72 134/70 H 134/70 H O2 Saturation 94 96 97 05/21/18 06:10 Temperature 36.3 C L Heart Rate 80 Respiratory 18 Rate Blood Pressure 127/71 O2 Saturation 100 Oxygen O2 Source Room air - EKG (time done) No standard instances Rate: Rate (enter#) (75) Rhythm: NSR [place]: LAD Intervals: Normal VA QRS: Normal Ischemia: Normal ST segments, Other (flat T waves V3, V4) - Labs Labs: Laboratory Tests 05/20/18 05/20/18 05/20/18 23:40 23:40 23:40 WBC 10.8 RBC 4.17 L Hgb 13.5 Hct 38.7 MCV 92.8 MCH 32.4 H MCHC 34.9 RDW 12.7 Plt Count 201 MPV 8.9 Neut # (Auto) 6.0 Lymph # (Auto) 3.7 H [place] # (Auto) 0.7 Eos # (Auto) 0.2 Baso # (Auto) 0.1 Absolute Nucleated RBC 0.01 Nucleated RBC % 0.1 PT INR APTT Sodium 128 L Potassium 3.1 L Chloride 90 L Carbon Dioxide 25 Anion Gap 13.0 BUN 11 Creatinine 0.6 Estimated GFR (MDRD) 100 Glucose 93 Calcium 8.8 Total Bilirubin 1.2 H AST 41 ALT 25 Alkaline Phosphatase 92 Troponin I < 0.04 Total Protein 7.9 Albumin 4.2 Globulin 3.7 Albumin/Globulin Ratio 1.1 Lipase 47 05/21/18 05/21/18 00:00 05:15 WBC RBC Hgb Hct MCV MCH MCHC RDW Plt Count MPV Neut # (Auto) Lymph # (Auto) [place] # (Auto) Eos # (Auto) Baso # (Auto) Absolute Nucleated RBC Nucleated RBC % PT 12.3 INR 1.1 APTT 29.1 Sodium Potassium Chloride Carbon Dioxide Anion Gap BUN Creatinine Estimated GFR (MDRD) Glucose Calcium Total Bilirubin AST ALT Alkaline Phosphatase Troponin I < 0.04 Total Protein Albumin Globulin Albumin/Globulin Ratio Lipase - Rads (name of study) CT head Radiology: Prelim report reviewed, See rad report chest xray Radiology: Prelim report reviewed, See rad report PD MEDICAL DECISION MAKING - ED course Complexity details: reviewed results, re-evaluated patient, considered differential, d/w patient ED course: Patient reported inadequate relief with 2mg IV morphine but had significant improvement with subsequent 4mg IV morphine. Patient had only noted LUE weakness on HPI but was found to have both LUE and LLE weakness on exam with no other neurologic deficits, and her LUE weakness resolved during ED stay with improvement in LLE weakness although not completely resolved on reexamination. MRI is not available in [facility] over this weekend and thus I contacted hospitalist at [facility] and Dr. Fernández accepts patient for transfer. Departure - Departure Disposition: 02 Transfer Acute Care Hosp Clinical Impression: Weakness Chest pain Qualifiers: Chest pain type: unspecified Qualified Code(s): R07.9 - Chest pain, unspecified Condition: Stable Discharge Date/Time: 05/21/18 06:10
[2018-05-20 23:59] LABS: BASOPHILS # (AUTO) 0.1 10^3/uL (0.0-0.1); BASOPHILS % (AUTO) 1.4 %; EOSINOPHILS # (AUTO) 0.2 10^3/uL (0.0-0.7); HGB - HEMOGLOBIN 13.5 g/dL (12.0-16.0); LYMPHOCYTES # (AUTO) 3.7 10^3/uL (1.5-3.5); MEAN CORPUSCULAR HEMOGLOBIN 32.4 pg (27.0-31.0); MEAN CORPUSCULAR HGB CONC 34.9 g/dL (32.0-36.0); MEAN CORPUSCULAR VOLUME 92.8 fL (81.0-99.0); MEAN PLATELET VOLUME 8.9 fL (7.9-10.8); MONOCYTES # (AUTO) 0.7 10^3/uL (0.0-1.0); MONOCYTES % (AUTO) 6.8 %; NEUTROPHILS % (AUTO) 55.8 %; PLT - PLATELET COUNT 201 10^3/uL (130-450); RED BLOOD COUNT 4.17 10^6/uL (4.20-5.40); RED CELL DISTRIBUTION WIDTH 12.7 % (12.0-15.0); WHITE BLOOD COUNT 10.8 x10^3/uL (4.8-10.8)
[2018-05-21 00:10] LABS: ALBUMIN 4.2 g/dL (3.2-5.5); ALBUMIN/GLOBULIN RATIO 1.1 (1.0-2.2); BILIRUBIN,TOTAL 1.2 mg/dL (0.2-1.0); CALCIUM 8.8 mg/dL (8.5-10.3); CREATININE 0.6 mg/dL (0.4-1.0); TOTAL PROTEIN 7.9 g/dL (6.7-8.2)
--- NOTE | 2018-05-21 00:29 | CT Report ---
Reason: left-sided weakness Procedure Date: 05/21/2018 Accession Number: [id number] / [id number] Procedure: CT - HEAD WO CPT Code: FULL RESULT: EXAM: CT HEAD EXAM DATE: 05/21/2018 12:18 AM. CLINICAL HISTORY: Left-sided weakness. COMPARISON: HEAD W/O 09/01/2013 12:57 AM. TECHNIQUE: Multiaxial CT images were obtained from the foramen magnum to the vertex. Reformats: Sagittal and coronal. IV contrast: None. In accordance with CT protocol optimization, one or more of the following dose reduction techniques were utilized for this exam: automated exposure control, adjustment of mA and/or KV based on patient size, or use of iterative reconstructive technique. FINDINGS: Parenchyma: No intraparenchymal hemorrhage. No evidence of mass, midline shift, or CT findings of infarction. Downs-white differentiation is distinct. Extraaxial Spaces: Normal for age. No subdural or epidural collections identified. Ventricles: Normal in size and position. Sinuses and Orbits: Imaged paranasal sinuses, orbits, and mastoids show no significant abnormality. Bones: No evidence of fracture or calvarial defect. Other: None. IMPRESSION: 1. No CT evidence of an acute intracranial abnormality. No significant change compared to 09/01/2013. 2. No intracranial mass lesion, mass-effect, or hydrocephalus. RADIA
[2018-05-21] MEDS ORDERED: MORPHINE 2 MG/ML SYRINGE IVP STA ×2 (00:30→02:54)
[2018-05-21 00:33] LABS: INR 1.1 (0.8-1.2); PT - PROTHROMBIN TIME 12.3 secs (9.9-12.6)
[2018-05-21 00:41] LABS: PARTIAL THROMBOPLASTIN TIME 29.1 secs (24.9-33.3)
--- NOTE | 2018-05-21 00:53 | XRAY Report ---
Reason: chest pain Procedure Date: 05/21/2018 Accession Number: [id number] / [id number] Procedure: XR - Chest 1 View X-Ray CPT Code: 85802 FULL RESULT: EXAM: CHEST RADIOGRAPHY EXAM DATE: 05/21/2018 12:20 AM. CLINICAL HISTORY: Chest pain. COMPARISON: CHEST 2 VIEW PA/LAT 06/28/2016 3:48 AM. TECHNIQUE: 1 view. FINDINGS: Lungs/Pleura: No dense consolidation. No large effusion or pneumothorax. No pulmonary edema. Redemonstration of mildly elevated right hemidiaphragm. Mediastinum: Heart and mediastinal contours are unremarkable. Other: None. IMPRESSION: No acute radiographic pulmonary abnormalities. RADIA
[2018-05-21 06:32] VITALS: BP 127/71
== END 2018-05-21 06:10 | disposition short-term general hospital (02) ==
LOC: EDUNIT# → ED 23:22
DX: R07.9 Chest pain, unspecified (principal); R53.1 Weakness; G81.94 Hemiplegia, unspecified affecting left nondominant side; I10 Essential (primary) hypertension; F17.200 Nicotine dependence, unspecified, uncomplicated; Z79.82 Long term (current) use of aspirin
CPT/HCPCS: 36415; 70450; 71045; 80053; 83690; 84484; 85025; 85610; 85730; 93005; 96374; 96376; 99285; J2270

== ENCOUNTER 2018-05-21 06:13 | Outpatient (CLI) | payer MEDICARE | END 2018-05-21 06:14 | disposition short-term general hospital (02) | LOC: EMS 06:13 | PROVIDERS: ATTEND Surgery | DX: R07.9 Chest pain, unspecified (principal); R53.1 Weakness | CPT/HCPCS: A0425; A0426 ==

== ENCOUNTER 2019-02-15 04:05 | Outpatient (CLI) | payer MEDICARE | END 2019-02-15 04:06 | disposition critical access hospital (66) | LOC: EMS 04:05 | PROVIDERS: ATTEND Surgery | DX: R07.9 Chest pain, unspecified (principal); R20.0 Anesthesia of skin | CPT/HCPCS: A0425; A0427 ==

== ENCOUNTER 2019-02-15 04:28 | Emergency (ER) | payer MEDICARE ==
[2019-02-15] MEDS ORDERED: SODIUM CHLORIDE 0.9% 1,000 ML IV ONE (04:46)
[2019-02-15 04:48] LABS: BASOPHILS # (AUTO) 0.1 10^3/uL (0.0-0.1); BASOPHILS % (AUTO) 0.8 %; EOSINOPHILS # (AUTO) 0.2 10^3/uL (0.0-0.7); EOSINOPHILS % (AUTO) 2.3 %; HGB - HEMOGLOBIN 13.5 g/dL (12.0-16.0); LYMPHOCYTES % (AUTO) 33.9 %; MEAN CORPUSCULAR HEMOGLOBIN 32.1 pg (27.0-31.0); MEAN CORPUSCULAR HGB CONC 32.9 g/dL (32.0-36.0); MEAN CORPUSCULAR VOLUME 97.4 fL (81.0-99.0); MEAN PLATELET VOLUME 10.8 fL (7.9-10.8); MONOCYTES # (AUTO) 0.9 10^3/uL (0.0-1.0); MONOCYTES % (AUTO) 9.6 %; NEUTROPHILS # (AUTO) 4.7 10^3/uL (1.5-6.6); NEUTROPHILS % (AUTO) 53.1 %; PLT - PLATELET COUNT 186 10^3/uL (130-450); RED BLOOD COUNT 4.21 10^6/uL (4.20-5.40); RED CELL DISTRIBUTION WIDTH 13.2 % (12.0-15.0); WHITE BLOOD COUNT 8.9 x10^3/uL (4.8-10.8)
--- NOTE | 2019-02-15 04:52 | ED Physician Documentation ---
PD HPI CHEST PAIN - Stated complaint Stated Complaint: L ARM/ JAW PAIN - Chief complaint Chief Complaint: Cardiac - History obtained from History obtained from: Patient - History of Present Illness Timing - onset: Enter time (2199), Last night Timing - onset during: Rest Timing - duration: Hours Timing - details: Abrupt onset, Now resolved, Waxing and waning Quality: Sharp, Pain Location: Substernal, Left chest, Left shoulder/arm, Left jaw, Other (initial episode with pain to the left hand with cramping of the hand) Radiation: Jaw, Left upper extremity Improved by: Nitro, ASA Worsened by: Palpation Associated symptoms: No: Shortness of air, Diaphoresis, Nausea, Vomiting, Feeling faint / dizzy, General Weakness, Palpitations, Cough - Additional information Additional information: 68-year-old female who was her usual sedentary self developed some acute cramping in her left hand at about 10:00 in the evening. She eventually went to bed and she awoke at 2:30 in the morning to go into the restroom when she developed acute left-sided chest pain with radiation of the pain into the jaw and down the left arm. She took some nitroglycerin waited about an hour and eventually called the paramedics. She was administered nitroglycerin and aspirin in the ambulance she vomited once she has now had resolution of her pain. The patient has had similar episode previously in January of last year and she has had an angiogram done following that episode and that angiogram demonstrated minimal coronary disease. The patient did not have stents placed CABG was not recommended. She has not been recently ill ,she denies any excessive use of her upper extremities or contusion to her chest. She does state that at the time of this incident previously she also had chest wall tenderness. Review of Systems Constitutional: denies: Fever Eyes: denies: Decreased vision Ears: denies: Ear pain Nose: denies: Congestion Throat: denies: Sore throat Cardiac: reports: Chest pain / pressure. denies: Palpitations, Pedal edema, Calf pain Respiratory: denies: Dyspnea, Cough, Wheezing GI: reports: Nausea, Vomiting. denies: Abdominal Pain : denies: Dysuria, Frequency Skin: denies: Rash Musculoskeletal: denies: Neck pain, Back pain, Extremity pain Neurologic: denies: Generalized weakness, Focal weakness PD PAST MEDICAL HISTORY - Past Medical History Cardiovascular: Hypertension Respiratory: None Neuro: None Endocrine/Autoimmune: None GI: None MOBILE SOLUTIONS ARCHITECT: None : None HEENT: None Psych: None Musculoskeletal: Chronic back pain Derm: None - Past Surgical History Past Surgical History: Yes General: Cholecystectomy, Hiatal hernia repair Ortho: Carpal Tunnel surgery /MOBILE SOLUTIONS ARCHITECT: Hysterectomy - Present Medications Home Medications: Ambulatory Orders Medication Instructions Recorded Confirmed Atenolol 50 mg PO DAILY 09/01/13 02/15/19 HYDROcod/ACETAM 5/325 [[place] 5/325] 1 - 2 ea PO Q6H PRN #15 tablet 03/31/16 02/15/19 Cyclobenzaprine [Flexeril] 10 mg PO TID PRN #20 tablet 06/28/16 02/15/19 hydroCHLOROthiazide 25 mg PO DAILY 06/28/16 02/15/19 [Hydrochlorothiazide] Aspirin [Adult Aspirin Regimen] 81 mg PO DAILY #15 tablet. 02/28/18 02/15/19 Atorvastatin [Lipitor] 40 mg PO QPM #15 tablet 02/28/18 02/15/19 Nitroglycerin [Nitrostat] 0.4 mg SL Q5MIN PRN #30 tablet 02/28/18 02/15/19 raNITIdine [Zantac] 150 mg PO BID 02/28/18 02/15/19 amLODIPine [Norvasc] 5 mg PO DAILY 02/15/19 02/15/19 - Allergies Allergies/Adverse Reactions: Allergies Allergy/AdvReac Type Severity Reaction Status Date / Time clindamycin Allergy Rash Verified 02/15/19 04:43 Penicillins Allergy Hives Verified 02/15/19 04:43 Iodine and Iodide Containing AdvReac Emesis Verified 02/15/19 04:43 Produc - Social History Does the pt smoke?: Yes Smoking Status: Current every day smoker Does the pt drink ETOH?: Yes Does the pt have substance abuse?: No - Immunizations Immunizations are current?: Yes - POLST Patient has POLST: No POLST Status: Patient wants CPR but no intubation PD ED PE NORMAL - Vitals Vital signs reviewed: Yes (hypertensive) - General General: Alert and oriented X 3, No acute distress, Well developed/nourished - HEENT HEENT: Atraumatic, PERRL, EOMI - Neck Neck: Supple, no meningeal sign, No bony TTP - Cardiac Cardiac: RRR, No murmur - Respiratory Respiratory: No respiratory distress, Clear bilaterally, Other (There is specific chest wall tenderness to a specific area of the left chest wall under the left breast. The pain is not present with deep breathing or palpation of any other area of the chest wall. ) - Abdomen Abdomen: Soft, Non tender - Back Back: No CVA TTP, No spinal TTP - Derm Derm: Normal color, Warm and dry, No rash - Extremities Extremities: No deformity, No edema - Neuro Neuro: Alert and oriented X 3, director operations 2-12 intact, No motor deficit, No sensory deficit, Normal speech Eye Opening: Spontaneous Motor: Obeys Commands Verbal: Oriented GCS Score: 15 - Psych Psych: Normal mood, Normal affect Results - Vitals Vitals: Vital Signs - 24 hr 02/15/19 02/15/19 02/15/19 04:30 05:00 05:40 Temperature 37.1 C Heart Rate 79 72 70 Respiratory 16 15 16 Rate Blood Pressure 115/87 H 113/68 106/66 O2 Saturation 94 94 96 Oxygen O2 Source Room air - EKG (time done) 0430 Rate: Rate (enter#) (81) Rhythm: NSR [place]: LAD, Anterior hemiblock Intervals: Prolonged QT Ischemia: Non specific changes Compare to prior EKG: Unchanged from prior EKG (SPT 05-20-2018 no significant change) Computer interpretation: Agree with computer - Labs Labs: Laboratory Tests 02/15/19 02/15/19 02/15/19 04:30 04:30 04:30 WBC 8.9 RBC 4.21 Hgb 13.5 Hct 41.0 MCV 97.4 MCH 32.1 H MCHC 32.9 RDW 13.2 Plt Count 186 MPV 10.8 Neut # (Auto) 4.7 Lymph # (Auto) 3.0 [place] # (Auto) 0.9 Eos # (Auto) 0.2 Baso # (Auto) 0.1 Absolute Nucleated RBC 0.00 Nucleated RBC % 0.0 Sodium 139 Potassium 3.1 L Chloride 97 L Carbon Dioxide 29 Anion Gap 13.0 BUN 22 H Creatinine 1.2 H Estimated GFR (MDRD) 45 L Glucose 124 H Calcium 9.1 Total Bilirubin 1.1 H AST 30 ALT 23 Alkaline Phosphatase 84 Troponin I High Sens 9.0 Total Protein 7.5 Albumin 4.0 Globulin 3.5 Albumin/Globulin Ratio 1.1 Lipase 50 Ethyl Alcohol 02/15/19 04:30 WBC RBC Hgb Hct MCV MCH MCHC RDW Plt Count MPV Neut # (Auto) Lymph # (Auto) [place] # (Auto) Eos # (Auto) Baso # (Auto) Absolute Nucleated RBC Nucleated RBC % Sodium Potassium Chloride Carbon Dioxide Anion Gap BUN Creatinine Estimated GFR (MDRD) Glucose Calcium Total Bilirubin AST ALT Alkaline Phosphatase Troponin I High Sens Total Protein Albumin Globulin Albumin/Globulin Ratio Lipase Ethyl Alcohol 135.0 - Rads (name of study) chest Radiology: Prelim report reviewed (Impression: No focal consolidation.), EMP read indepedently, See rad report Procedures - IVC sono (time) 0440 Bedside IVC sono: IVC measures (cm) (1.30), IVC collapsed c insp (cm) (complet e), Dehydration (est 1 liter deficit) PD MEDICAL DECISION MAKING - ED course Complexity details: reviewed old records, reviewed results, re-evaluated patient, considered differential, d/w patient, d/w family ED course: 68-year-old female with left hand cramping earlier in the evening and chest pain with demonstrated chest wall tenderness has an unchanged electrocardiogram, specific chest wall tenderness, mild dehydration and resolution of her pain. She has a prior history of similar episode with a low risk myocardial perfusion scan treadmill test and minimal coronary disease on angiogram. She is administered saline and her troponin is checked. All of the patient's diagnostics reassuring and she is diagnosed with chest wall pain, dehydration and alcohol intoxication and she is administered PO potassium. She is given IV decadron for the chest wall pain and she indicates she is under a lot of stress with her Og Hendrickson because of his excessive drinking. She concedes that she believes the pain she had in her jaw and down the left arm were likely related to panic when she developed the chest pain. She leaves the ED reassured and without pain. Departure - Departure Disposition: 01 Home, Self Care Clinical Impression: Dehydration, Chest wall pain, Atypical chest pain Condition: Stable Instructions: ED Chest Pain Costochondritis, ED Dehydration Follow-Up: Valeriy Devi MD [Physician No Access] - Discharge Date/Time: 02/15/19 05:56
[2019-02-15 04:58] LABS: ALBUMIN/GLOBULIN RATIO 1.1 (1.0-2.2); BILIRUBIN,TOTAL 1.1 mg/dL (0.2-1.0); CALCIUM 9.1 mg/dL (8.5-10.3); CREATININE 1.2 mg/dL (0.4-1.0); TOTAL PROTEIN 7.5 g/dL (6.7-8.2)
[2019-02-15] MEDS ORDERED: POTASSIUM CHLORIDE 20 MEQ TABLET PO STA (05:07)
--- NOTE | 2019-02-15 05:26 | XRAY Report ---
Reason: Chest Pain Procedure Date: 02/15/2019 Accession Number: [id number] / [id number] Procedure: XR - Chest 1 View X-Ray CPT Code: 98352 Final Report FULL RESULT: EXAM: CHEST RADIOGRAPHY EXAM DATE: 02/15/2019 04:51 AM. CLINICAL HISTORY: Chest Pain. COMPARISON: CHEST 1 VIEW 05/21/2018 12:14 AM. TECHNIQUE: 1 view. FINDINGS: Lungs/Pleura: No focal opacities evident. No pleural effusion. No pneumothorax. Mediastinum: Within exam limitations, the cardiomediastinal contour is normal. Other: Elevated right hemidiaphragm. IMPRESSION: No focal consolidation. RADIA
[2019-02-15] MEDS ORDERED: DEXAMETHASONE 10 MG/ML VIAL IVP STA (05:32)
[2019-02-15 05:41] VITALS: BP 106/66
== END 2019-02-15 05:56 | disposition home or self-care (01) ==
LOC: EDUNIT# → ED 04:28
DX: R07.89 Other chest pain (principal); E86.0 Dehydration; F10.129 Alcohol abuse with intoxication, unspecified; I10 Essential (primary) hypertension; F17.200 Nicotine dependence, unspecified, uncomplicated
CPT/HCPCS: 36415; 71045; 80053; 83690; 84484; 85025; 93005; 96361; 96374; 99284; A9270; 80320

== ENCOUNTER 2020-09-30 16:22 | Outpatient (CLI) | payer MEDICARE | END 2020-09-30 23:59 | disposition home or self-care (01) | LOC: LAB.N 16:22 | PROVIDERS: ATTEND Physician Assistant Medical | DX: R05 Cough (principal); Z20.822 Contact with and (suspected) exposure to COVID-19 ==

== ENCOUNTER 2021-04-04 05:18 | Outpatient (CLI) | payer MEDICARE | END 2021-04-04 05:19 | disposition critical access hospital (66) | LOC: EMS 05:18 | DX: M54.2 Cervicalgia (principal); R68.84 Jaw pain; R20.0 Anesthesia of skin; R07.9 Chest pain, unspecified; M79.18 Myalgia, other site; M79.602 Pain in left arm | CPT/HCPCS: A0425; A0427 ==

== ENCOUNTER 2021-04-04 05:37 | Emergency (ER) | payer MEDICARE ==
[2021-04-04 06:11] LABS: BASOPHILS # (AUTO) 0.1 10^3/uL (0.0-0.1); BASOPHILS % (AUTO) 0.8 %; EOSINOPHILS # (AUTO) 0.1 10^3/uL (0.0-0.7); EOSINOPHILS % (AUTO) 1.9 %; HCT - HEMATOCRIT 39.9 % (37.0-47.0); HGB - HEMOGLOBIN 13.2 g/dL (12.0-16.0); LYMPHOCYTES # (AUTO) 2.7 10^3/uL (1.5-3.5); MEAN CORPUSCULAR HEMOGLOBIN 31.6 pg (27.0-31.0); MEAN CORPUSCULAR HGB CONC 33.1 g/dL (32.0-36.0); MEAN CORPUSCULAR VOLUME 95.5 fL (81.0-99.0); MEAN PLATELET VOLUME 10.9 fL (7.9-10.8); MONOCYTES # (AUTO) 0.8 10^3/uL (0.0-1.0); NEUTROPHILS # (AUTO) 2.7 10^3/uL (1.5-6.6); NEUTROPHILS % (AUTO) 42.1 %; PLT - PLATELET COUNT 189 10^3/uL (130-450); RED BLOOD COUNT 4.18 10^6/uL (4.20-5.40); WHITE BLOOD COUNT 6.3 x10^3/uL (4.8-10.8)
[2021-04-04 06:19] LABS: ALBUMIN 3.6 g/dL (3.2-5.5); BILIRUBIN,TOTAL 1.2 mg/dL (0.2-1.0); CALCIUM 8.7 mg/dL (8.5-10.3); CREATININE 0.7 mg/dL (0.4-1.0); POTASSIUM 2.8 mmol/L (3.5-5.0); TOTAL PROTEIN 7.2 g/dL (6.7-8.2)
[2021-04-04] MEDS ORDERED: POTASSIUM CHLORIDE 20 MEQ/15 ML UDC PO STA (07:16)
--- NOTE | 2021-04-04 07:23 | ED Physician Documentation ---
History of Present Illness - Stated complaint Stated Complaint: L ARM/JAW PX - Chief complaint Chief Complaint: Cardiac - History obtained from History obtained from: Patient - Additonal information Additional information: 70yF daily smoker with multiple ED visits in the past for L arm/jaw pain and tingling p/w L posterior neck pain radiating to the jaw and L arm with associated tingling of the arm, arising this AM, constant, intermittently worsening in spasms shooting down the arm, nonexertional, aching, improving with fentanyl en route but then worsening again in the ED. 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 also endorses palpitations 4 or 5 days ago that resolved. denies fever, cough, nausea, diaphoresis. patient's channel opener in [place] is Dr. Ervin. She states she had a complete workup and thinks she had stress test recently in the past couple years as well as angiogram 2019 or 2020 that was clean. Review of Systems Ten Systems: 10 systems reviewed and negative Constitutional: denies: Fever, Chills Cardiac: reports: Chest pain / pressure, Palpitations Respiratory: denies: Cough GI: denies: Nausea, Vomiting Musculoskeletal: reports: Extremity pain PD PAST MEDICAL HISTORY - Past Medical History Cardiovascular: Hypertension Respiratory: None Neuro: None Endocrine/Autoimmune: None GI: None CARDING SUPERVISOR: None : None HEENT: None Psych: None Musculoskeletal: Chronic back pain Derm: None - Past Surgical History Past Surgical History: Yes General: Cholecystectomy, Hiatal hernia repair Ortho: Carpal Tunnel surgery /CARDING SUPERVISOR: Hysterectomy - Present Medications Home Medications: Ambulatory Orders Medication Instructions Recorded Confirmed Atenolol 50 mg PO DAILY 09/01/13 04/04/21 Aspirin [Adult Aspirin Regimen] 81 mg PO DAILY #15 tablet. 02/28/18 04/04/21 Atorvastatin [Lipitor] 40 mg PO QPM #15 tablet 02/28/18 04/04/21 Nitroglycerin [Nitrostat] 0.4 mg SL Q5MIN PRN #30 tablet 02/28/18 04/04/21 amLODIPine [Norvasc] 5 mg PO DAILY 02/15/19 04/04/21 Cyclobenzaprine [Flexeril] 04/04/21 DULoxetine [Cymbalta] 04/04/21 04/04/21 Isosorbide Mononitrate [Isosorbide 04/04/21 Mononitrate ER] Oxycodone HCl/Acetaminophen 04/04/21 [Percocet 5-325 mg Tablet] hydrALAZINE [Apresoline] 25 mg PO 04/04/21 - Allergies Allergies/Adverse Reactions: Allergies Allergy/AdvReac Type Severity Reaction Status Date / Time clindamycin Allergy Rash Verified 02/15/19 04:43 Penicillins Allergy Hives Verified 02/15/19 04:43 Iodine and Iodide Containing AdvReac Emesis Verified 02/15/19 04:43 Produc - Social History Does the pt smoke?: Yes Smoking Status: Current every day smoker Does the pt drink ETOH?: Yes Does the pt have substance abuse?: No - Immunizations Immunizations are current?: Yes Immunizations: TDAP >10years/unknown - POLST Patient has POLST: No POLST Status: Patient wants CPR but no intubation PD ED PE NORMAL - Vitals Vital signs reviewed: Yes - General General: Alert and oriented X 3, No acute distress, Well developed/nourished, Other (intermittently tearful appearing) - HEENT HEENT: Atraumatic, PERRL, EOMI - Neck Neck: Supple, no meningeal sign - Cardiac Cardiac: RRR - Respiratory Respiratory: No respiratory distress, Clear bilaterally - Abdomen Abdomen: Non tender, Non distended - Derm Derm: Normal color, Warm and dry - Extremities Extremities: No edema, No calf tenderness / cord - Neuro Neuro: Alert and oriented X 3, No motor deficit, No sensory deficit - Psych Psych: Other (tearful, anxious affect) Results - Vitals Vitals: Vital Signs - 24 hr 04/04/21 04/04/21 04/04/21 06:04 06:10 06:40 Temperature 36.6 C Heart Rate 89 88 89 Respiratory 16 12 13 Rate Blood Pressure 106/72 136/87 H 127/67 O2 Saturation 95 99 99 04/04/21 07:56 Temperature Heart Rate 82 Respiratory 18 Rate Blood Pressure 107/62 O2 Saturation 95 Oxygen O2 Source Nasal cannula - EKG (time done) 0548 Rate: Rate (enter#) (91) Rhythm: NSR [place]: Other (LAFB) Intervals: Normal [place], QRS normal QRS: Normal Ischemia: Other (anterior ischemic changes unchanged from 02/15/19) - Labs Labs: Laboratory Tests 04/04/21 04/04/21 04/04/21 05:45 05:45 05:45 WBC 6.3 RBC 4.18 L Hgb 13.2 Hct 39.9 MCV 95.5 MCH 31.6 H MCHC 33.1 RDW 13.0 Plt Count 189 MPV 10.9 H Neut # (Auto) 2.7 Lymph # (Auto) 2.7 [place] # (Auto) 0.8 Eos # (Auto) 0.1 Baso # (Auto) 0.1 Absolute Nucleated RBC 0.00 Nucleated RBC % 0.0 Sodium 137 Potassium 2.8 L Chloride 93 L Carbon Dioxide 29 Anion Gap 15.0 H BUN 7 Creatinine 0.7 Estimated GFR (MDRD) 83 L Glucose 107 H Calcium 8.7 Total Bilirubin 1.2 H AST 37 ALT 24 Alkaline Phosphatase 85 Troponin I High Sens 11.3 Total Protein 7.2 Albumin 3.6 Globulin 3.6 Albumin/Globulin Ratio 1.0 Lipase 29 PD MEDICAL DECISION MAKING - ED course ED course: Note that patient was requiring oxygen on arrival to ED. 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 she is unsure of the cause. patient does have her covid vaccines but no booster yet. no known exposure. First set of bloodwork unremarkable. CXR appears to have no evidence of CP disease. ekg without acute changes. I went ahead and took her off oxygen and she is maintaining well in the 90s. call sent out to her channel opener DR. Ervin. patient endorsed to Dr. Arreola for further management and care. d/w Dr. De Leon- heart cath in May 2020 with normal coronary arteries. 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 repeat echo this past year was normal except for mild TR. obesity, mild LE edema started on lasix recently for that but not for significant heart failure. agree this is definitely noncardiac and will dc home with reassurance and recommendation to f/u with back pain specialist for possible cervical radiculopathy. return precautions given. Departure - Departure Clinical Impression: Chest pain, Jaw pain, Neck pain, Tingling Condition: Stable Instructions: ED Chest Pain NonCardiac, ED Neck Back Pain General Comments: You were seen in the ED for neck pain moving to your jaw and arm. I spoke with your cardiology group (Dr. De Leon, affiliated with your channel opener) and you have had an extremely thorough workup and are at low risk of heart attack at this time. You may have cervical radiculopathy (problems with pinched nerve in your neck) that could be the root of your problems. Please follow up with your primary doctor and back specialist for further evaluation. return to the ED if you have new or worsening symptoms or other concerns.
[2021-04-04] MEDS ORDERED: DEXAMETHASONE 10 MG/ML VIAL IVP STA (07:38)
[2021-04-04] MEDS ORDERED: KETOROLAC 15 MG/ML VIAL IVP STA (07:39)
--- NOTE | 2021-04-04 07:57 | XRAY Report ---
PROCEDURE: Chest 1 View X-Ray INDICATIONS: Chest Pain TECHNIQUE: One view of the chest was acquired. COMPARISON: 02/15/2019 FINDINGS: Surgical changes and devices: None. Lungs and pleura: No pleural effusions or pneumothorax. Lungs are clear. Mediastinum: Mediastinal contours appear normal. Heart size is normal. Bones and chest wall: No suspicious bony lesions. Overlying soft tissues appear unremarkable. IMPRESSION: Chest without acute cardiopulmonary abnormalities. No significant discrepancy with initial interpretation by overnight radiologist. Reviewed by: Tee Shin MD on 04/04/2021 7:56 AM PST Approved by: Tee Shin MD on 04/04/2021 7:56 AM PST Station ID: [id number]
[2021-04-04 09:18] VITALS: BP 119/75
== END 2021-04-04 09:15 | disposition home or self-care (01) ==
LOC: EDUNIT# → ED 05:37
DX: R07.89 Other chest pain (principal); I10 Essential (primary) hypertension; F17.200 Nicotine dependence, unspecified, uncomplicated
CPT/HCPCS: 36415; 71045; 80053; 83690; 84484; 85025; 93005; 96374; 99284; A9270; U0004

== ENCOUNTER 2021-11-30 21:51 | Emergency (ER) | payer MEDICARE ==
--- OUTSIDE RECORDS SUMMARY | 2021-11-30 21:58 | EXTERNAL MEDICAL SUMMARY RPT | Continuity of Care Document ---
:1950 Author Organization [facility] Address [address] [place] [address] Phone Allergies No information. Encounters No information. Functional Status No information. Immunizations No information. Medications date description facility Diazepam 10 MG Oral Tablet [facility] pitga [id number] Omeprazole 20 MG Enteric Coated Capsul [facility] [id number] celecoxib 200 MG Oral Capsule [facility] +0000 duloxetine 30 MG Enteric Coated Capsul [facility] +0000 Hydralazine Hydrochloride 25 MG Oral T [facility] Problems No information. Procedures date description facility + Diagnosis [facility] [id number] Finding [facility] [id number] General Physician [facility] Results/Labs test date author facility value unit interpret ation Result panel 1 (unknown) (no (unknown) (unknown) (no value) (units (unk nown) date) unknown) (unknown) (no (unknown) (unknown) (no value) (units (unk nown) date) unknown) (unknown) (no (unknown) (unknown) (no value) (units (unk nown) date) unknown) (unknown) (no (unknown) (unknown) 09/15/21 (units (unkno wn) date) unknown) (unknown) (no (unknown) (unknown) 10:28 (units (unkno wn) date) unknown) (unknown) (no (unknown) (unknown) [place] (units ( unknown) date) [id number] unknown) (unknown) (no (unknown) (unknown) Draft (units (unkno wn) date) unknown) (unknown) (no (unknown) (unknown) Pain Visit (units (unk nown) date) unknown) (unknown) (no (unknown) (unknown) [facility] (units (unkno wn) date) unknown) (unknown) (no (unknown) (unknown) [facility] ([facility]) date[facility] unknown) (unknown) (no (unknown) (unknown) (no value) (units (unk nown) date) unknown) (unknown) (no (unknown) (unknown) [id number] (units (unkno wn) date) unknown) (unknown) (no (unknown) (unknown) 05/11/17 [History (units (unknown) date) Confirmed unknown) 09/15/21] (unknown) (no (unknown) (unknown) 06/24/20 [History (units (unknown) date) Confirmed unknown) 09/15/21] (unknown) (no (unknown) (unknown) 09/15/21 (units (unkno wn) date) unknown) (unknown) (no (unknown) (unknown) 09/15/21] (units (unkn own) date) unknown) (unknown) (no (unknown) (unknown) Accompanied by: (units (unknown) date) Spouse unknown) (unknown) (no (unknown) (unknown) Age/Sex: 71 / F (units (unknown) date) Date of Service: unknown) (unknown) (no (unknown) (unknown) Allergies (units (unkn own) date) unknown) (unknown) (no (unknown) (unknown) Attending Dr: (units ( unknown) date) Alfonso Boles D.O. unknown) (unknown) (no (unknown) (unknown) BMI 38.6 (units (unkno wn) date) unknown) (unknown) (no (unknown) (unknown) BP 138/70 (units (unkn own) date) unknown) (unknown) (no (unknown) (unknown) Blood Pressure (units (unknown) date) Location Rt unknown) brachial (unknown) (no (unknown) (unknown) Cervical (units (unkno wn) date) radiculopathy unknown) (unknown) (no (unknown) (unknown) Confirmed (units (unkn own) date) 09/15/21] unknown) (unknown) (no (unknown) (unknown) : 1950 (units (unknown) date) Acct:[id number] unknown) (unknown) (no (unknown) (unknown) Dept at (units (unkno wn) date) . unknown) (unknown) (no (unknown) (unknown) Documented By: (units (unknown) date) Alfonso Boles D.O. unknown) 09/15/21 1021 (unknown) (no (unknown) (unknown) Facet (units (unkno wn) date) arthropathy, unknown) lumbar (unknown) (no (unknown) (unknown) Foraminal (units (unkn own) date) stenosis due to unknown) intervertebral disc disease (unknown) (no (unknown) (unknown) HERE FOR POST RFA (units (unknown) date) LUMBAR unknown) (unknown) (no (unknown) (unknown) Height 5 ft (units (un known) date) unknown) (unknown) (no (unknown) (unknown) Herniated nucleus (units (unknown) date) pulposus, L1-2 unknown) (unknown) (no (unknown) (unknown) Intake (units (unkno wn) date) unknown) (unknown) (no (unknown) (unknown) Intake Clinical (units (unknown) date) Staff unknown) (unknown) (no (unknown) (unknown) Intake Note: (units (u nknown) date) unknown) (unknown) (no (unknown) (unknown) Intake performed (units (unknown) date) by: Genet Yoo unknown) (unknown) (no (unknown) (unknown) Is patient in (units ( unknown) date) pain?: Yes (HERE unknown) FOR LUMBAR SPINE RFA) Pain scale (1-10): 5 (unknown) (no (unknown) (unknown) Loc: PAIN (units (unkn own) date) unknown) (unknown) (no (unknown) (unknown) Medical History (units (unknown) date) (Reviewed 05/12/21 unknown) @ 13:38 by Alfonso Boles DO) (unknown) (no (unknown) (unknown) Medications (units (un known) date) unknown) (unknown) (no (unknown) (unknown) Oxygen Delivery (units (unknown) date) Method room air unknown) (unknown) (no (unknown) (unknown) PFSH (units (unkno wn) date) unknown) (unknown) (no (unknown) (unknown) Pain Scale (units (unk nown) date) unknown) (unknown) (no (unknown) (unknown) Patient: (units (unkno wn) date) Adriana Barclay unknown) MR#: [id number] (unknown) (no (unknown) (unknown) Penicillins (units (un known) date) [PENICILLINS] unknown) Allergy (Unknown, Unverified 09/15/21 10:24) (unknown) (no (unknown) (unknown) Position Sitting (units (unknown) date) unknown) (unknown) (no (unknown) (unknown) Pulse 71 (units (unkno wn) date) unknown) (unknown) (no (unknown) (unknown) Pulse Oximetry (units (unknown) date) (%) 98 unknown) (unknown) (no (unknown) (unknown) Pulse Source (units (u nknown) date) Monitor unknown) (unknown) (no (unknown) (unknown) Reason For Visit (units (unknown) date) unknown) (unknown) (no (unknown) (unknown) Sacral (units (unkno wn) date) dysfunction unknown) (unknown) (no (unknown) (unknown) Signed By: (units (unk nown) date) unknown) (unknown) (no (unknown) (unknown) Smoking Status: (units (unknown) date) Former smoker unknown) (unknown) (no (unknown) (unknown) Temp 97.7 F (units (un known) date) unknown) (unknown) (no (unknown) (unknown) Temp Source (units (un known) date) Temporal Artery unknown) Scan (unknown) (no (unknown) (unknown) This note may (units ( unknown) date) have been all or unknown) partially generated using voice recognition (unknown) (no (unknown) (unknown) Tobacco + (units (unkn own) date) Substance Use unknown) (unknown) (no (unknown) (unknown) Tobacco Status (units (unknown) date) unknown) (unknown) (no (unknown) (unknown) Visit Reasons: (units (unknown) date) Follow Up RFA, unknown) LUMBAR SPINE RFA (unknown) (no (unknown) (unknown) Vitals (units (unkno wn) date) unknown) (unknown) (no (unknown) (unknown) Weight 197 lb 13 (units (unknown) date) oz unknown) (unknown) (no (unknown) (unknown) aspirin 81 mg (units ( unknown) date) tablet,delayed unknown) release (Adult Low Dose Aspirin) 81 mg PO DAILY (unknown) (no (unknown) (unknown) atenolol 100 mg (units (unknown) date) tablet 100 mg PO unknown) DAILY 06/24/20 [History Confirmed 09/15/21] (unknown) (no (unknown) (unknown) atorvastatin 40 mg (units (unknown) date) tablet 40 mg PO unknown) BEDTIME 06/24/20 [History Confirmed 09/15/21] (unknown) (no (unknown) (unknown) clindamycin (units (un known) date) [CLINDAMYCIN] unknown) Allergy (Severe, Unverified 09/15/21 10:24) (unknown) (no (unknown) (unknown) clobetasol 0.05 % (units (unknown) date) topical cream 1 unknown) applic topical DAILY 06/24/20 [History (unknown) (no (unknown) (unknown) cyclobenzaprine (units (unknown) date) 10 mg tablet 5 - unknown) 10 mg PO TIDP PRN ##0 05/11/17 [History (unknown) (no (unknown) (unknown) duloxetine 30 mg (units (unknown) date) capsule,delayed unknown) release 30 mg PO DAILY 09/15/21 [History (unknown) (no (unknown) (unknown) furosemide 20 mg (units (unknown) date) tablet (Lasix) 10 unknown) mg PO QAM 09/20/20 [History Confirmed (unknown) (no (unknown) (unknown) have occurred. If (units (unknown) date) there are any unknown) questions, please contact the Medical Records (unknown) (no (unknown) (unknown) hydralazine 25 mg (units (unknown) date) tablet 25 mg PO unknown) .PRN 09/15/21 [History Confirmed 09/15/21] (unknown) (no (unknown) (unknown) hydroxyzine HCl (units (unknown) date) 25 mg tablet 25 mg unknown) PO Q6H PRN #30 tabs 05/11/17 [Rx Confirmed (unknown) (no (unknown) (unknown) isosorbide (units (unk nown) date) mononitrate 60 mg unknown) tablet,extended release 24 hr 60 mg PO DAILY (unknown) (no (unknown) (unknown) may occur. (units (unk nown) date) Occasional unknown) wrong-word or 'sound-alike' substitutions may have (unknown) (no (unknown) (unknown) occurred due to (units (unknown) date) the inherent unknown) limitations of voice recognition software. Please (unknown) (no (unknown) (unknown) omeprazole 20 mg (units (unknown) date) capsule,delayed unknown) release 20 mg PO DAILY 09/15/21 [History (unknown) (no (unknown) (unknown) oxycodone-acetami (units (unknown) date) nophen 5 mg-325 mg unknown) tablet 1 tab PO TID 05/12/21 [History (unknown) (no (unknown) (unknown) read the note (units ( unknown) date) carefully and unknown) recognize, using context, where these substitutions (unknown) (no (unknown) (unknown) software. 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 (unknown) (no (unknown) (unknown) trazodone 50 mg (units (unknown) date) tablet 50 mg PO unknown) BEDTIME 05/12/21 [History Confirmed 09/15/21] (unknown) (no (unknown) (unknown) triamcinolone (units ( unknown) date) acetonide 0.025 % unknown) topical ointment 1 keegan topical PRN PRN ##0 Result panel 2 (unknown) (no (unknown) (unknown) (no value) (units (unk nown) date) unknown) (unknown) (no (unknown) (unknown) Medications: (units (u nknown) date) unknown) (unknown) (no (unknown) (unknown) Status: Acute (units ( unknown) date) unknown) (unknown) (no (unknown) (unknown) (no value) (units (unk nown) date) unknown) (unknown) (no (unknown) (unknown) (no value) (units (unk nown) date) unknown) (unknown) (no (unknown) (unknown) (no value) (units (unk nown) date) unknown) (unknown) (no (unknown) (unknown) 09/15/21 (units (unkno wn) date) unknown) (unknown) (no (unknown) (unknown) 09/15/21 1048 (units ( unknown) date) unknown) (unknown) (no (unknown) (unknown) 10:28 (units (unkno wn) date) unknown) (unknown) (no (unknown) (unknown) LAURENCE Baeza [id number] (unit s (unknown) date) unknown) (unknown) (no (unknown) (unknown) Pain Visit (units (unk nown) date) unknown) (unknown) (no (unknown) (unknown) RASH (units (unkno wn) date) unknown) (unknown) (no (unknown) (unknown) Signed (units (unkno wn) date) unknown) (unknown) (no (unknown) (unknown) [facility] (unit s (unknown) date) Management unknown) (unknown) (no (unknown) (unknown) (no value) (units (unk nown) date) unknown) (unknown) (no (unknown) (unknown) (1) Herniated (units ( unknown) date) nucleus pulposus, unknown) L1-2: (unknown) (no (unknown) (unknown) (2) Facet (units (unkn own) date) arthropathy, lumbar: unknown) (unknown) (no (unknown) (unknown) (3) Sacral (units (unk nown) date) dysfunction: unknown) (unknown) (no (unknown) (unknown) (4) Foraminal (units ( unknown) date) stenosis due to unknown) intervertebral disc disease: (unknown) (no (unknown) (unknown) [id number] (units (unkno wn) date) unknown) (unknown) (no (unknown) (unknown) 05/11/17 [History (units (unknown) date) Confirmed 09/15/21] unknown) (unknown) (no (unknown) (unknown) 06/24/20 [History (units (unknown) date) Confirmed 09/15/21] unknown) (unknown) (no (unknown) (unknown) 09/15/21 (units (unkno wn) date) unknown) (unknown) (no (unknown) (unknown) 09/15/21] (units (unkn own) date) unknown) (unknown) (no (unknown) (unknown) 1 capsule p.o. (units (unknown) date) q.day. unknown) (unknown) (no (unknown) (unknown) 1. Multilevel disc (units (unknown) date) bulges. unknown) (unknown) (no (unknown) (unknown) 13:37 (units (unkno wn) date) unknown) (unknown) (no (unknown) (unknown) 2. Overall mild to (units (unknown) date) moderate foraminal unknown) narrowing with moderate to severe at L5-S1 (unknown) (no (unknown) (unknown) 3. Multilevel (units ( unknown) date) overall minimal to unknown) mild spinal stenosis secondary to disc bulge (unknown) (no (unknown) (unknown) ACCESSION#: (units (un known) date) [id number] EXAM unknown) DATE: 06/18/2020 (unknown) (no (unknown) (unknown) Accompanied by: (units (unknown) date) Spouse unknown) (unknown) (no (unknown) (unknown) Age/Sex: 71 / F (units (unknown) date) Date of Service: unknown) (unknown) (no (unknown) (unknown) All of her (units (unk nown) date) questions were unknown) answered to the best my ability she is in agreement (unknown) (no (unknown) (unknown) All other systems (units (unknown) date) reviewed and are unknown) negative except as noted in HPI. (unknown) (no (unknown) (unknown) Allergies (units (unkn own) date) unknown) (unknown) (no (unknown) (unknown) Approved by: Sharon (unit s (unknown) date) Abhilash Leo on unknown) 06/18/2020 at 15:54 (unknown) (no (unknown) (unknown) Assessment + Plan (units (unknown) date) unknown) (unknown) (no (unknown) (unknown) Attending Dr: (units ( unknown) date) Alfonso Boles D.O. unknown) (unknown) (no (unknown) (unknown) BMI 38.6 (units (unkno wn) date) unknown) (unknown) (no (unknown) (unknown) BP 138/70 (units (unkn own) date) unknown) (unknown) (no (unknown) (unknown) Babinski (R/L): - / (unit s (unknown) date) - unknown) (unknown) (no (unknown) (unknown) Blood Pressure (units (unknown) date) Location Rt brachial unknown) (unknown) (no (unknown) (unknown) CONTRAST MEDIA: (units (unknown) date) STATION ID: [id number] unknown) (unknown) (no (unknown) (unknown) Cervical (units (unkno wn) date) radiculopathy unknown) (unknown) (no (unknown) (unknown) Chief Complaint (units (unknown) date) unknown) (unknown) (no (unknown) (unknown) Chief Complaint: (units (unknown) date) Follow-up right unknown) L3-L4 L5 and S1 medial branch RFA 05/22/2021 (unknown) (no (unknown) (unknown) Clonus (R/L): - / - (unit s (unknown) date) unknown) (unknown) (no (unknown) (unknown) Confirmed 09/15/21] (unit s (unknown) date) unknown) (unknown) (no (unknown) (unknown) : 1950 (units (unknown) date) Acct:[id number] unknown) (unknown) (no (unknown) (unknown) DTR LE: Patellar (units (unknown) date) (2+/2+); Achilles unknown) (2+/2+) (unknown) (no (unknown) (unknown) Denies recent (units ( unknown) date) trauma, fever or unknown) weight loss of unknown origin, immunocompromise (unknown) (no (unknown) (unknown) Dept at (units (unkno wn) date) . unknown) (unknown) (no (unknown) (unknown) Details: (units (unkno wn) date) unknown) (unknown) (no (unknown) (unknown) Dictated by: Sharon (unit s (unknown) date) Abhilash Leo on unknown) 06/18/2020 at 15:46 (unknown) (no (unknown) (unknown) Documented By: (units (unknown) date) Alfonso Boles D.O. 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, congenital right rib aplasia, (unknown) (no (unknown) (unknown) Exam (units (unkno wn) date) unknown) (unknown) (no (unknown) (unknown) Exam Narrative (units (unknown) date) unknown) (unknown) (no (unknown) (unknown) Exam Narrative: (units (unknown) date) unknown) (unknown) (no (unknown) (unknown) Extension: 30 (units ( unknown) date) unknown) (unknown) (no (unknown) (unknown) FLUORO TIME: (units (u nknown) date) unknown) (unknown) (no (unknown) (unknown) Facet arthropathy, (units (unknown) date) lumbar unknown) (unknown) (no (unknown) (unknown) Flexion: 90 (units (un known) date) unknown) (unknown) (no (unknown) (unknown) Foraminal stenosis (units (unknown) date) due to unknown) intervertebral disc disease (unknown) (no (unknown) (unknown) Gait: normal (units (u nknown) date) Coordination: normal unknown) (unknown) (no (unknown) (unknown) General Appearance: (unit s (unknown) date) Well-nourished, well unknown) developed in no acute distress (unknown) (no (unknown) (unknown) HERE FOR POST RFA (units (unknown) date) LUMBAR unknown) (unknown) (no (unknown) (unknown) HPI (units (unkno wn) date) unknown) (unknown) (no (unknown) (unknown) Height 5 ft (units (un known) date) unknown) (unknown) (no (unknown) (unknown) Herniated nucleus (units (unknown) date) pulposus, L1-2 unknown) (unknown) (no (unknown) (unknown) Hip Adduction (units ( unknown) date) (R/L): 15? / 15? Hip unknown) Abduction (R/L): 40? / 40? (unknown) (no (unknown) (unknown) Hip Exam (units (unkno wn) date) (Bilateral) unknown) (unknown) (no (unknown) (unknown) Hip Flexion (R/L): (units (unknown) date) 120? / 120? Hip unknown) Extension (R/L): 20? / 20? (unknown) (no (unknown) (unknown) Hip IR (R/L): 5? / (units (unknown) date) 5? Hip ER (R/L): 30? unknown) / 30? (unknown) (no (unknown) (unknown) IMPRESSION: (units (un known) date) unknown) (unknown) (no (unknown) (unknown) Informed consent was (unit s (unknown) date) obtained today unknown) without guarantees or assurances of complete (unknown) (no (unknown) (unknown) Inspection / (units (u nknown) date) Palpation LE (R/L): unknown) non-tender bilaterally (unknown) (no (unknown) (unknown) Intake (units (unkno wn) date) unknown) (unknown) (no (unknown) (unknown) Intake Clinical (units (unknown) date) Staff unknown) (unknown) (no (unknown) (unknown) Intake Note: (units (u nknown) date) unknown) (unknown) (no (unknown) (unknown) Intake performed (units (unknown) date) by: Genet Yoo unknown) (unknown) (no (unknown) (unknown) Is patient in (units ( unknown) date) pain?: Yes (HERE FOR unknown) LUMBAR SPINE RFA) Pain scale (1-10): 5 (unknown) (no (unknown) (unknown) L2 (iliopsoas / mid (unit s (unknown) date) anterior thigh unknown) sensation)= 5/5 : normal (unknown) (no (unknown) (unknown) L3 (quadriceps / (units (unknown) date) distal anterior unknown) thigh sensation)= 5/5 : normal (unknown) (no (unknown) (unknown) L3-L4: Mild disc (units (unknown) date) bulge with minimal unknown) to mild canal narrowing. Urjx-ny-hyggtwln (unknown) (no (unknown) (unknown) L4 (tibialis (units (u nknown) date) anterior / patellar unknown) reflex / medial ankle sensation)= 5/5 : 2+ : (unknown) (no (unknown) (unknown) L4-L5: Mild disc (units (unknown) date) bulge with mild unknown) spinal stenosis. Mild to moderate bilateral (unknown) (no (unknown) (unknown) L5 (EHL / dorsal (units (unknown) date) foot sensation)= 5/5 unknown) : normal (unknown) (no (unknown) (unknown) L5-S1: Mild disc (units (unknown) date) bulge without spinal unknown) stenosis. Moderate left and moderate to (unknown) (no (unknown) (unknown) LE Skin: no rashes (units (unknown) date) or lesions unknown) bilaterally (unknown) (no (unknown) (unknown) Lateral Bend(R/L): (units (unknown) date) unknown) (unknown) (no (unknown) (unknown) Loc: PAIN (units (unkn own) date) unknown) (unknown) (no (unknown) (unknown) Adriana and I (units (unk nown) date) discussed at length unknown) her underlying pathology with her right-sided (unknown) (no (unknown) (unknown) Adriana is seen today (units (unknown) date) in follow-up unknown) accompanied by her spouse Og for further (unknown) (no (unknown) (unknown) Lumbar Spine Exam (units (unknown) date) unknown) (unknown) (no (unknown) (unknown) Lymph LE: no (units (u nknown) date) inguinal unknown) lymphadenopathy (unknown) (no (unknown) (unknown) MODALITY: MR (units (u nknown) date) PATIENT TYPE: Out unknown) (unknown) (no (unknown) (unknown) (units (unknown) date) ACCOUNT #: unknown) [id number] (unknown) (no (unknown) (unknown) MSK: System (units (un known) date) reviewed and no unknown) additional complaints, except as documented. (unknown) (no (unknown) (unknown) Medical History (units (unknown) date) (Reviewed 09/15/21 @ unknown) 10:46 by Alfonso Boles DO) (unknown) (no (unknown) (unknown) Medications (units (un known) date) unknown) (unknown) (no (unknown) (unknown) Neuro: System (units ( unknown) date) reviewed and no unknown) additional complaints, except as documented. (unknown) (no (unknown) (unknown) New (units (unkno wn) date) unknown) (unknown) (no (unknown) (unknown) No quad tightness (units (unknown) date) unknown) (unknown) (no (unknown) (unknown) ORD. : HARESH (units (unknown) date) DIANA Hung [facility]: unknown) (unknown) (no (unknown) (unknown) Objective Data (units (unknown) date) unknown) (unknown) (no (unknown) (unknown) Objective Data: (units (unknown) date) unknown) (unknown) (no (unknown) (unknown) Orientation: (units (u nknown) date) Oriented to person, unknown) place and time. Mood / Affect: Calm (unknown) (no (unknown) (unknown) Oxygen Delivery (units (unknown) date) Method room air unknown) (unknown) (no (unknown) (unknown) PATIENT NAME: (units ( unknown) date) ADRIANA BARCLAY. unknown) : 1950 (unknown) (no (unknown) (unknown) PFSH (units (unkno wn) date) unknown) (unknown) (no (unknown) (unknown) Pain Scale (units (unk nown) date) unknown) (unknown) (no (unknown) (unknown) Patient: (units (unkno wn) date) Adriana Barclay MR#: unknown) M00 (unknown) (no (unknown) (unknown) Penicillins (units (un known) date) [PENICILLINS] unknown) Allergy (Unknown, Unverified 09/15/21 10:24) (unknown) (no (unknown) (unknown) Plan (units (unkno wn) date) unknown) (unknown) (no (unknown) (unknown) Position Sitting (units (unknown) date) unknown) (unknown) (no (unknown) (unknown) Pulse 71 (units (unkno wn) date) unknown) (unknown) (no (unknown) (unknown) Pulse Oximetry (%) (units (unknown) date) 98 unknown) (unknown) (no (unknown) (unknown) Pulse Source (units (u nknown) date) Monitor unknown) (unknown) (no (unknown) (unknown) ROS (units (unkno wn) date) unknown) (unknown) (no (unknown) (unknown) ROS Narrative (units ( unknown) date) unknown) (unknown) (no (unknown) (unknown) ROS Narrative: (units (unknown) date) unknown) (unknown) (no (unknown) (unknown) Reason For Visit (units (unknown) date) unknown) (unknown) (no (unknown) (unknown) Refilled (units (unkno wn) date) unknown) (unknown) (no (unknown) (unknown) Rotation (R/L): 45 (units (unknown) date) / 45 unknown) (unknown) (no (unknown) (unknown) S1 (Peroneals / (units (unknown) date) Achilles reflex / unknown) lateral ankle sensation)= 5/5 : 2+ : normal (unknown) (no (unknown) (unknown) Sacral dysfunction (units (unknown) date) unknown) (unknown) (no (unknown) (unknown) Sacral provocative (units (unknown) date) maneuvers including unknown) sacral shear test, distraction test, (unknown) (no (unknown) (unknown) Seated SLR(R/L): - (units (unknown) date) / - unknown) (unknown) (no (unknown) (unknown) Sensation: (units (unk nown) date) Subjective normal unknown) distal sensation bilaterally (unknown) (no (unknown) (unknown) She reports (units (un known) date) otherwise feeling unknown) well maintain the Covid19 social restrictions (unknown) (no (unknown) (unknown) Signed By: (units (unk nown) date) <Electronically unknown) signed by Alfonso Boles D.O.> (unknown) (no (unknown) (unknown) Smoking Status: (units (unknown) date) Former smoker unknown) (unknown) (no (unknown) (unknown) Strength LE: 5/5 (units (unknown) date) EHL, tibialis unknown) anterior, plantar flexion bilaterally (unknown) (no (unknown) (unknown) Supine SLR (R/L): - (unit s (unknown) date) / - unknown) (unknown) (no (unknown) (unknown) Temp 97.7 F (units (un known) date) unknown) (unknown) (no (unknown) (unknown) Temp Source (units (un known) date) Temporal Artery Scan unknown) (unknown) (no (unknown) (unknown) Tenderness: Right (units (unknown) date) greater than left unknown) sacral tenderness with positive standing (unknown) (no (unknown) (unknown) This note may have (units (unknown) date) been all or unknown) partially generated using voice recognition (unknown) (no (unknown) (unknown) Tobacco + Substance (unit s (unknown) date) Use unknown) (unknown) (no (unknown) (unknown) Tobacco Status (units (unknown) date) unknown) (unknown) (no (unknown) (unknown) Vasculature: 2+ (units (unknown) date) dorsalis pedis pulse unknown) bilaterally (unknown) (no (unknown) (unknown) Visit Reasons: (units (unknown) date) Follow Up RFA, unknown) LUMBAR SPINE RFA (unknown) (no (unknown) (unknown) Vitals (units (unkno wn) date) unknown) (unknown) (no (unknown) (unknown) Susanna Signs: (units ( unknown) date) -tenderness, unknown) -simulation, -distraction, -regional disturbances, - (unknown) (no (unknown) (unknown) We did review the (units (unknown) date) above-stated unknown) procedure at length and verbal consent was (unknown) (no (unknown) (unknown) Weight 197 lb 13 oz (unit s (unknown) date) unknown) (unknown) (no (unknown) (unknown) [Rx Confirmed (units ( unknown) date) 09/15/21] unknown) (unknown) (no (unknown) (unknown) aspirin 81 mg (units ( unknown) date) tablet,delayed unknown) release (Adult Low Dose Aspirin) 81 mg PO DAILY (unknown) (no (unknown) (unknown) atenolol 100 mg (units (unknown) date) tablet 100 mg PO unknown) DAILY 06/24/20 [History Confirmed 09/15/21] (unknown) (no (unknown) (unknown) atorvastatin 40 mg (units (unknown) date) tablet 40 mg PO unknown) BEDTIME 06/24/20 [History Confirmed 09/15/21] (unknown) (no (unknown) (unknown) attempting to (units ( unknown) date) perform her daily unknown) ADLs but is having difficulty secondary to this (unknown) (no (unknown) (unknown) axial low back (units (unknown) date) pain. She has unknown) improved status post right L3-L4 L5 and S1 medial (unknown) (no (unknown) (unknown) ay occur. (units (unkn own) date) Occasional unknown) wrong-word or 'sound-alike' substitutions may have (unknown) (no (unknown) (unknown) bilateral (units (unkn own) date) unknown) (unknown) (no (unknown) (unknown) branch RFA (units (unk nown) date) performed on unknown) 05/22/2021. She does continue with predominant right- (unknown) (no (unknown) (unknown) celecoxib (units (unkn own) date) (Celebrex) 200 mg PO unknown) DAILY 30 caps 2RF (unknown) (no (unknown) (unknown) celecoxib 200 mg (units (unknown) date) capsule (Celebrex) unknown) 200 mg PO DAILY #30 caps 09/15/21 [Rx (unknown) (no (unknown) (unknown) clindamycin (units (un known) date) [CLINDAMYCIN] unknown) Allergy (Severe, Unverified 09/15/21 10:24) (unknown) (no (unknown) (unknown) clobetasol 0.05 % (units (unknown) date) topical cream 1 unknown) applic topical DAILY 06/24/20 [History (unknown) (no (unknown) (unknown) contributing effect (unit s (unknown) date) of facet/ligamentum unknown) flavum arthropathy as well as epidural (unknown) (no (unknown) (unknown) cyclobenzaprine 10 (units (unknown) date) mg tablet 5 - 10 mg unknown) PO TIDP PRN ##0 05/11/17 [History (unknown) (no (unknown) (unknown) diazepam (Valium) (units (unknown) date) 10mg PO 1-2 tabs unknown) pre-MRI, procedure and 1 tab nocturnally for (unknown) (no (unknown) (unknown) diazepam 10 mg (units (unknown) date) tablet (Valium) 10 unknown) mg PO .COMPLEX PRN sedation #10 tabs 09/15/21 (unknown) (no (unknown) (unknown) duloxetine 30 mg (units (unknown) date) capsule,delayed unknown) release 30 mg PO DAILY 09/15/21 [History (unknown) (no (unknown) (unknown) evaluation treatment (unit s (unknown) date) of her ongoing unknown) right-sided lumbosacral pain. She is status (unknown) (no (unknown) (unknown) flexion test on the (unit s (unknown) date) right unknown) (unknown) (no (unknown) (unknown) foraminal (units (unkn own) date) unknown) (unknown) (no (unknown) (unknown) foraminal narrowing (unit s (unknown) date) with facet and unknown) ligamentum flavum hypertrophy. Epidural (unknown) (no (unknown) (unknown) from 1 side to the (units (unknown) date) other. unknown) (unknown) (no (unknown) (unknown) furosemide 20 mg (units (unknown) date) tablet (Lasix) 10 mg unknown) PO QAM 09/20/20 [History Confirmed (unknown) (no (unknown) (unknown) have occurred. If (units (unknown) date) there are any unknown) questions, please contact the Medical Records (unknown) (no (unknown) (unknown) hydralazine 25 mg (units (unknown) date) tablet 25 mg PO .PRN unknown) 09/15/21 [History Confirmed 09/15/21] (unknown) (no (unknown) (unknown) hydroxyzine HCl 25 (units (unknown) date) mg tablet 25 mg PO unknown) Q6H PRN #30 tabs 05/11/17 [Rx Confirmed (unknown) (no (unknown) (unknown) hypertension (units (u nknown) date) hyperlipidemia unknown) (unknown) (no (unknown) (unknown) inflammatories for (units (unknown) date) the above-stated unknown) symptomatology. She continues to report (unknown) (no (unknown) (unknown) injury, stroke, (units (unknown) date) paralysis and unknown) and the patient elected to proceed. (unknown) (no (unknown) (unknown) interventions. She (units (unknown) date) would like to pursue unknown) these to significant offset her (unknown) (no (unknown) (unknown) intravenous drug (units (unknown) date) use, sustained unknown) glucocorticoid use, osteoporosis, or a focal (unknown) (no (unknown) (unknown) is present. (units (un known) date) unknown) (unknown) (no (unknown) (unknown) isosorbide (units (unk nown) date) mononitrate 60 mg unknown) tablet,extended release 24 hr 60 mg PO DAILY (unknown) (no (unknown) (unknown) lipomatosis (units (un known) date) unknown) (unknown) (no (unknown) (unknown) lipomatosis. (units (u nknown) date) unknown) (unknown) (no (unknown) (unknown) narrowing with (units (unknown) date) facet and ligamentum unknown) flavum hypertrophy. 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 (unknown) (no (unknown) (unknown) normal (units (unkno wn) date) unknown) (unknown) (no (unknown) (unknown) obtained today, As (units (unknown) date) oral consent, we did unknown) review the risks of the above stated (unknown) (no (unknown) (unknown) occurred due to the (unit s (unknown) date) inherent limitations unknown) of voice recognition software. Please (unknown) (no (unknown) (unknown) omeprazole 20 mg (units (unknown) date) capsule,delayed unknown) release 20 mg PO DAILY 09/15/21 [History (unknown) (no (unknown) (unknown) or (units (unkno wn) date) immunosuppressive unknown) therapy, previous or current cancer diagnosis, history of (unknown) (no (unknown) (unknown) overreaction (units (u nknown) date) unknown) (unknown) (no (unknown) (unknown) oxycodone-acetamino (unit s (unknown) date) phen 5 mg-325 mg unknown) tablet 1 tab PO TID 05/12/21 [History (unknown) (no (unknown) (unknown) pain. She does (units ( unknown) date) report she offset unknown) the right lumbosacral junction pain by sitting (unknown) (no (unknown) (unknown) possible steroid (units (unknown) date) flare PRN, MAX DOSE unknown) 3TABS/24hr. 10 tabs 0RF sedation (unknown) (no (unknown) (unknown) post right L3-L4 L5 (unit s (unknown) date) and S1 medial branch unknown) RFA performed on 05/22/2021. She (unknown) (no (unknown) (unknown) present. (units (unkno wn) date) unknown) (unknown) (no (unknown) (unknown) procedure including (units (unknown) date) not limited to unknown) bleeding, infection, allergic reaction, nerve (unknown) (no (unknown) (unknown) read the note (units ( unknown) date) carefully and unknown) recognize, using context, where these substitutions (unknown) (no (unknown) (unknown) relief applied. (units (unknown) date) Will complete unknown) written consent on the day of the procedure. (unknown) (no (unknown) (unknown) reports no (units (unk nown) date) difficulty with the unknown) procedure itself but she does report ongoing (unknown) (no (unknown) (unknown) right foraminal (units (unknown) date) narrowing with facet unknown) and ligamentum flavum hypertrophy. (unknown) (no (unknown) (unknown) right lumbosacral (units (unknown) date) junction pain. She unknown) reports that she is not using any anti- (unknown) (no (unknown) (unknown) sacroiliac joint (units (unknown) date) compression test and unknown) Yoeman's test are positive. 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 (unknown) (no (unknown) (unknown) severe (units (unkno wn) date) unknown) (unknown) (no (unknown) (unknown) sided sacroiliac (units (unknown) date) joint pain. We did unknown) discuss her previous response with sacral (unknown) (no (unknown) (unknown) software. 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 (units (unknown) date) Additionally will unknown) begin a trial with Celebrex 200 mg capsules (unknown) (no (unknown) (unknown) trazodone 50 mg (units (unknown) date) tablet 50 mg PO unknown) BEDTIME 05/12/21 [History Confirmed 09/15/21] (unknown) (no (unknown) (unknown) triamcinolone (units ( unknown) date) acetonide 0.025 % unknown) topical ointment 1 keegan topical PRN PRN ##0 (unknown) (no (unknown) (unknown) with (units (unkno wn) date) unknown) (unknown) (no (unknown) (unknown) with the (units (unkno wn) date) above-stated plan. unknown) (unknown) (no (unknown) (unknown) without cough fever (unit s (unknown) date) fatigue at this unknown) time. She has been fully vaccinated. Result panel 3 (unknown) (no date) (unknown) (unknown) Negative (units (unkn own) unknown) Result panel 4 (unknown) (no (unknown) (unknown) (no value) (units (unk nown) date) unknown) (unknown) (no (unknown) (unknown) [address] [place] [address] (units (unknown) date) unknown) (unknown) (no (unknown) (unknown) [place], [place] (units ( unknown) date) [id number] unknown) (unknown) (no (unknown) (unknown) [facility] (units (unknown) date) unknown) (unknown) (no (unknown) (unknown) Signed (units (unkno wn) date) unknown) (unknown) (no (unknown) (unknown) XRay Report (units (un known) date) unknown) (unknown) (no (unknown) (unknown) (no value) (units (unk nown) date) unknown) (unknown) (no (unknown) (unknown) 10/21/21 (units (unkno wn) date) unknown) (unknown) (no (unknown) (unknown) Approved by: (units (u nknown) date) jaqui Nicholas M.D. on 10/21/2021 at 13:53 (unknown) (no (unknown) (unknown) COMPARISON: (units (un known) date) [facility], unknown) XA, PAIN SI JOINT INJECTION, 03/04/2021, 11:35. (unknown) (no (unknown) (unknown) Dictated by: (units (u nknown) date) rachael Nicholas) Abhilash on 10/21/2021 at 13:53 (unknown) (no (unknown) (unknown) FINDINGS: (units (unkn own) date) unknown) (unknown) (no (unknown) (unknown) IMPRESSION: (units (un known) date) Successful unknown) sacroiliac joint injection. (unknown) (no (unknown) (unknown) INDICATIONS: (units (u nknown) date) SACROILIAC unknown) DISORDER (unknown) (no (unknown) (unknown) On these (units (unkno wn) date) intraprocedural unknown) images, there is a spinal needle seen overlying the (unknown) (no (unknown) (unknown) aspect of the (units ( unknown) date) right sacroiliac unknown) joint. Appropriate position of the tip of the (unknown) (no (unknown) (unknown) confirmed by (units (u nknown) date) injection of a unknown) small amount of iodinated contrast. (unknown) (no (unknown) (unknown) [id number] (units (unkno wn) date) unknown) (unknown) (no (unknown) (unknown) Accession Number: (units (unknown) date) [id number] unknown) (unknown) (no (unknown) (unknown) Age/Sex: 71 / F (units (unknown) date) Date of Service: unknown) (unknown) (no (unknown) (unknown) : 1950 (units (unknown) date) Acct:[id number] unknown) (unknown) (no (unknown) (unknown) Loc: RAD (units (unkno wn) date) unknown) (unknown) (no (unknown) (unknown) Ordering (units (unkno wn) date) Provider: unknown) Alfonso Boles D.O. (unknown) (no (unknown) (unknown) PROCEDURE: PAIN (units (unknown) date) SI JOINT INJECTION unknown) (unknown) (no (unknown) (unknown) Patient: (units (unkno wn) date) Adriana Barclay unknown) MR#: [id number] (unknown) (no (unknown) (unknown) Procedure: PAIN (units (unknown) date) si joint injection unknown) (unknown) (no (unknown) (unknown) inferior (units (unkno wn) date) unknown) (unknown) (no (unknown) (unknown) needle was (units (unk nown) date) unknown) Result panel 5 (unknown) (no (unknown) (unknown) (no value) (units (unk nown) date) unknown) (unknown) (no (unknown) (unknown) Date of Service: (units (unknown) date) 10/21/21 unknown) (unknown) (no (unknown) (unknown) 10/21/21 1402 (units ( unknown) date) unknown) (unknown) (no (unknown) (unknown) [facility] (units (unknown) date) [address] unknown) [place] [address] (unknown) (no (unknown) (unknown) Procedure Note (units (unknown) date) unknown) (unknown) (no (unknown) (unknown) (no value) (units (unk nown) date) unknown) (unknown) (no (unknown) (unknown) [id number] (units (unkno wn) date) unknown) (unknown) (no (unknown) (unknown) After review of (units (unknown) date) previous unknown) anaesthesic history and IV conscious sedation the (unknown) (no (unknown) (unknown) Age/Sex: 71 / F (units (unknown) date) unknown) (unknown) (no (unknown) (unknown) At this point a (units (unknown) date) total of 1cc of unknown) 0.5% Marcaine was combined with 1cc of 6 mg of (unknown) (no (unknown) (unknown) Complications: (units (unknown) date) none unknown) (unknown) (no (unknown) (unknown) DESCRIPTION OF (units (unknown) date) PROCEDURE unknown) (unknown) (no (unknown) (unknown) : 1950 (units (unknown) date) Acct:[id number] unknown) (unknown) (no (unknown) (unknown) Date of procedure: (units (unknown) date) 10/21/21 unknown) (unknown) (no (unknown) (unknown) Date/Time/Diagnose (units (unknown) date) s unknown) (unknown) (no (unknown) (unknown) Fluoroscopically (units (unknown) date) guided contrast unknown) controlled right sacroiliac joint injection (unknown) (no (unknown) (unknown) Fluoroscopically (units (unknown) date) guided, contrast unknown) controlled right sacroiliac joint injection (unknown) (no (unknown) (unknown) Following review (units (unknown) date) of allergies and unknown) review of potential side effects and (unknown) (no (unknown) (unknown) In the prone (units (un known) date) position following unknown) sterile prep and drape of the pelvic region, the (unknown) (no (unknown) (unknown) Indications: (units (u nknown) date) unknown) (unknown) (no (unknown) (unknown) Adriana is referred (units (unknown) date) by Dr. Ag for unknown) treatment of right sacroiliac joint DJD (unknown) (no (unknown) (unknown) POSTOP (units (unkno wn) date) INSTRUCTIONS unknown) (unknown) (no (unknown) (unknown) Patient: (units (unkno wn) date) Adriana Barclay M unknown) MR#: [id number] (unknown) (no (unknown) (unknown) Physician: Alfonso (units (unknown) date) Elvi unknown) (unknown) (no (unknown) (unknown) Post-procedure (units (unknown) date) diagnosis: same unknown) (unknown) (no (unknown) (unknown) Pre-procedure (units ( unknown) date) diagnosis: unknown) Sacroiliac joint pain/DJD (unknown) (no (unknown) (unknown) Procedure Notes (units (unknown) date) unknown) (unknown) (no (unknown) (unknown) Procedure in (units (u nknown) date) detail + unknown) Post-procedure care: (unknown) (no (unknown) (unknown) Procedure: (units (unk nown) date) unknown) (unknown) (no (unknown) (unknown) Provider: (units (unkn own) date) Alfonso Boles D.O. unknown) (unknown) (no (unknown) (unknown) Radiographic data, (units (unknown) date) including multiple unknown) fluoroscopic views of the pelvis, reveals (unknown) (no (unknown) (unknown) Signed (units (unkno wn) date) By:<Electronically unknown) signed by Alfonso Boles D.O.> (unknown) (no (unknown) (unknown) The patient was (units (unknown) date) provided with a unknown) pain like to continue to record the patient's (unknown) (no (unknown) (unknown) The procedure (units ( unknown) date) tolerated the unknown) procedure well without signs or symptoms of (unknown) (no (unknown) (unknown) Time of procedure: (units (unknown) date) 14:01 unknown) (unknown) (no (unknown) (unknown) Total Fluoroscopy (units (unknown) date) time (seconds): 6 unknown) (unknown) (no (unknown) (unknown) Total sedation (units (unknown) date) minutes: 9 unknown) (unknown) (no (unknown) (unknown) a spinal needle in (units (unknown) date) the sacroiliac unknown) joint hyper lucent zone. Subsequent view show (unknown) (no (unknown) (unknown) a vas score of 7 (units (unknown) date) prior to the unknown) procedure and post-procedure vas of 1. (unknown) (no (unknown) (unknown) accomplished with (units (unknown) date) a combination of unknown) 2mg of Versed was administered by the RN (unknown) (no (unknown) (unknown) after DO order, (units (unknown) date) titrated to patient unknown) comfort during the course of the procedure (unknown) (no (unknown) (unknown) and agreed to (units (u nknown) date) proceed. An unknown) informed consent was signed by the patient, witnessed (unknown) (no (unknown) (unknown) approximately 2 cc (units (unknown) date) of 1% lidocaine unknown) solution. At this point, a 22 gauge 3 in (unknown) (no (unknown) (unknown) betamethasone was (units (unknown) date) injected without unknown) incident. (unknown) (no (unknown) (unknown) bur observed for (units (unknown) date) an appropriate time unknown) after the injection. The patient reverted (unknown) (no (unknown) (unknown) by a nurse, and (units (unknown) date) placed in the unknown) patient's chart. Additionally, other treatment (unknown) (no (unknown) (unknown) complications (units ( unknown) date) prior to transfer unknown) to the recovery area continued monitoring (unknown) (no (unknown) (unknown) complications, (units (unknown) date) including, but not unknown) necessarily limited to, infection, allergic (unknown) (no (unknown) (unknown) flow contrast tear (units (unknown) date) superiorly and unknown) inferiorly within the joint capsule without (unknown) (no (unknown) (unknown) fluoroscopically (units (unknown) date) the skin was unknown) anesthetized be a 25 gauge 1 eventual with (unknown) (no (unknown) (unknown) guidance into the (units (unknown) date) inferior aspect of unknown) the right sacroiliac joint. Following (unknown) (no (unknown) (unknown) hyper lucency on (units (unknown) date) in the inferior unknown) aspect of the sacroiliac joint was identified (unknown) (no (unknown) (unknown) instructions and a (units (unknown) date) contact number to unknown) our office were provided if concerns arise (unknown) (no (unknown) (unknown) intra-articular (units (unknown) date) placement without unknown) vascular uptake. (unknown) (no (unknown) (unknown) negative (units (unkno wn) date) aspiration, unknown) approximately 0.3cc of Isovue-300 was injected confirming (unknown) (no (unknown) (unknown) options including (units (unknown) date) modalities, unknown) medications, and physical therapy were reviewed (unknown) (no (unknown) (unknown) paralysis, stroke (units (unknown) date) and possible , unknown) the patient indicated that they understood (unknown) (no (unknown) (unknown) patient ID, (units (un known) date) procedure to be unknown) performed and site of procedure. IV sedation was (unknown) (no (unknown) (unknown) patient was deemed (units (unknown) date) safe to proceed unknown) with today?s procedure with IV conscious (unknown) (no (unknown) (unknown) reaction, local (units (unknown) date) tissue breakdown, unknown) temporary as well as permanent nerve injury, (unknown) (no (unknown) (unknown) regarding the (units ( unknown) date) possible unknown) complications associated with procedure are suspected. (unknown) (no (unknown) (unknown) response to the (units (unknown) date) target specific unknown) procedure prior to the patient's follow-up visit (unknown) (no (unknown) (unknown) sedation as ASA (units (unknown) date) class II unknown) designation. Safety time-out was performed to confirm (unknown) (no (unknown) (unknown) spinal needle was (units (unknown) date) atraumatically unknown) introduced and advanced under fluoroscopic (unknown) (no (unknown) (unknown) vascular (units (unkno wn) date) intrathecal uptake. unknown) (unknown) (no (unknown) (unknown) while the patient (units (unknown) date) remained responsive unknown) to all verbal commands (unknown) (no (unknown) (unknown) with the patient. (units (unknown) date) unknown) (unknown) (no (unknown) (unknown) with the referring (units (unknown) date) physician. unknown) Additionally, specific post injection care (unknown) (no (unknown) (unknown) without incident. (units (unknown) date) The patient was unknown) then transferred to the recovery area with a Social History date description facility (no date) Ex-smoker (finding) [facility] Vital Signs date measurement value units +0000 BMI BMI 38.6 kg/m2 [id number] BP_diastolic BP_diastolic 70 mm[H g] +0000 BP_systolic BP_systolic 138 mm[Hg] [id number]+0000 heart_rate heart_rate 71 /min [id number] height_metric height_metric 152.4 cm [id number] height_standard height_standard 60 in [id number] temperature_metric temperature_metric 36.5 C [id number] temperature_standard temperature_standard 9 7.7 F [id number] weight_metric weight_metric 40.7 kg [id number]+0000 weight_standard weight_standard 89.73 lb
[2021-11-30 22:02] VITALS: BP 158/83
[2021-11-30] MEDS ORDERED: lidocaine 1% 20 ML MDV SUBQ ONE (22:05)
[2021-11-30] MEDS ORDERED: TETANUS/DIPHTHERIA/PERTUSSIS 0.5 ML SYRINGE IM ONE (22:16)
--- NOTE | 2021-11-30 22:17 | ED Physician Documentation ---
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 She takes a baby aspirin but denies other blood thinner use. She tried a pressure dressing which did not stop the bleeding. She did take a pain pill prior to coming.She is unsure of her last tetanus.She does agree to updating her tetanus today. 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 02/28/18 11/30/21 Atorvastatin [Lipitor] 40 mg PO QPM #15 tablet 02/28/18 11/30/21 Nitroglycerin [Nitrostat] 0.4 mg SL Q5MIN PRN #30 tablet 02/28/18 11/30/21 amLODIPine [Norvasc] 5 mg PO DAILY 02/15/19 11/30/21 DULoxetine [Cymbalta] 30 mg PO DAILY 04/04/21 11/30/21 Oxycodone HCl/Acetaminophen 5 mg PO Q6HR 04/04/21 11/30/21 [Percocet 5-325 mg Tablet] hydrALAZINE [Apresoline] 25 mg PO DAILY 04/04/21 11/30/21 - Allergies Allergies/Adverse Reactions: Allergies Allergy/AdvReac Type Severity Reaction Status Date / Time clindamycin Allergy Rash Verified 11/30/21 22:02 Penicillins Allergy Hives Verified 11/30/21 22:02 Iodine and Iodide Containing AdvReac Emesis Verified 11/30/21 22:02 Produc - Social History Does the pt smoke?: Yes Smoking Status: Current every day smoker Does the pt drink ETOH?: Yes Does the pt have substance abuse?: No - Immunizations Immunizations are current?: Yes Immunizations: TDAP >10years/unknown - POLST Patient has POLST: No POLST Status: Patient wants CPR but no intubation PD ED PE NORMAL - General General: Alert and oriented X 3, No acute distress, Well developed/nourished - HEENT HEENT: Atraumatic, Moist mucous membranes - Cardiac Cardiac: Strong equal pulses - Respiratory Respiratory: No respiratory distress - Derm Derm: Warm and dry - Extremities Extremities: Other (1.5 cm laceration to lateral aspect of Left thumb; Normal range of motion at all joints, brisk cap refill, sensation intact) PD ED PE EXPANDED - Extremities BEBETO UE/Hands Visual: 1 - laceration Results - Vitals Vitals: Vital Signs - 24 hr 11/30/21 21:59 Temperature 36.3 C L Heart Rate 90 Respiratory 17 Rate Blood Pressure 158/83 H O2 Saturation 96 Oxygen O2 Source Room air Procedures - Laceration (location) Left thumb Length in cm: 1.5 Wound type: Linear, Clean Neurovascular status: Sensory intact, Motor intact, Vascular intact Tendon involvement: Tendon intact Anesthesia: Lidocaine 1% Wound preparation: Hibiclens, Irrigated copiously NS Skin layer closure: Interrupted, Size #-0 - enter number (4), Sutures - enter # (5) Other: Patient tolerated well, No complications, Neurovascular intact, Dressing applied, Tetanus booster given PD MEDICAL DECISION MAKING - ED course ED course: Patient with left thumb laceration. No signs of tendon injury. Neurovascularly intact. Patient was given a tetanus booster. Wound was cleaned and closed. Dressing was applied. Patient counseled on need for suture removal as well as concerning symptoms to return for. Departure - Departure Disposition: 01 Home, Self Care Clinical Impression: Laceration of left thumb Qualifiers: Encounter type: initial encounter Damage to nail status: without damage Foreign body presence: without foreign body Qualified Code(s): S61.012A - Laceration without foreign body of left thumb without damage to nail, initial encounter Condition: Stable Instructions: ED Laceration Ext Sutr Stap Tape Comments: You were treated for a laceration to your left thumb.There were no signs of a foreign body and there does not appear to be any injury to internal structures like the tendon. The wound was cleaned and closed with 5 stitches. The stitches should stay in place for 1 week and you should have them removed on December 07. You can go to the walk-in clinic or return to the emergency de partment to have the sutures removed.If you notice any redness, swelling or abnormal drainage then please return to the emergency department. We have applied a dressing which you should keep on for the next 24 hours. You should also take caution when using the finger Until the wound heals. You were given a tetanus booster today. Discharge Date/Time: 11/30/21 22:46
== END 2021-11-30 22:46 | disposition home or self-care (01) ==
LOC: ED 21:51
DX: S61.012A Laceration without foreign body of left thumb without damage to nail, initial encounter (principal); W26.0XXA Contact with knife, initial encounter; I10 Essential (primary) hypertension; F17.200 Nicotine dependence, unspecified, uncomplicated; Z23 Encounter for immunization; Z71.85 Encounter for immunization safety counseling
CPT/HCPCS: 12001; 90471; 99283

== ENCOUNTER 2022-03-08 19:36 | Outpatient (CLI) | payer MEDICARE | END 2022-03-08 19:37 | disposition EMS.NT | LOC: EMS 19:36 | DX: M25.551 Pain in right hip (principal); Y04.8XXA Assault by other bodily force, initial encounter; Y92.009 Unspecified place in unspecified non-institutional (private) residence as the place of occurrence of the external cause ==

== ENCOUNTER 2022-11-06 12:00 | Emergency (ER) | payer MEDICARE ==
[2022-11-06] MEDS ORDERED: ONDANSETRON 4 MG/2 ML VIAL IVP STA (12:17)
[2022-11-06] MEDS ORDERED: SODIUM CHLORIDE 0.9% 1,000 ML IV STA (12:17)
--- NOTE | 2022-11-06 12:29 | ED Physician Documentation ---
History of Present Illness - Stated complaint Stated Complaint: LIU,NAUSEA,COUGH - Chief complaint Chief Complaint: Neuro - History obtained from History obtained from: Patient - Additonal information Additional information: The patient comes to the emergency department chief complaint of sinus pressure, headache, nausea, and chills for about the last week. She also developed a dry cough yesterday. She denies any measured fevers. She has not been vomiting but her appetite has been decreased. She states she is mainly come in because she has been in bed for the last 3 days not feeling well generally and because she also cannot seem to get rid of the sinus pressure and headache and it is interfering with her ability to function at home she says. No other complaints at this time. The patient has a history of hypertension, hyperlipidemia, CHF, and angina. 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 02/28/18 11/06/22 Atorvastatin [Lipitor] 40 mg PO QPM #15 tablet 02/28/18 11/06/22 Nitroglycerin [Nitrostat] 0.4 mg SL Q5MIN PRN #30 tablet 02/28/18 11/06/22 amLODIPine [Norvasc] 5 mg PO DAILY 02/15/19 11/06/22 DULoxetine [Cymbalta] 30 mg PO DAILY 04/04/21 11/06/22 Oxycodone HCl/Acetaminophen 5 mg PO Q6HR 04/04/21 11/06/22 [Percocet 5-325 mg Tablet] hydrALAZINE [Apresoline] 25 mg PO DAILY 04/04/21 11/06/22 HYDROcod/ACETAM 5/325 [[place] 5/325] 1 - 2 tablet PO HS #10 tablet 11/06/22 Ondansetron Odt [Zofran] 4 mg TL Q6H PRN #10 tablet 11/06/22 predniSONE [Deltasone] 10 mg PO [id number] #42 tab 11/06/22 - Allergies Allergies/Adverse Reactions: Allergies Allergy/AdvReac Type Severity Reaction Status Date / Time clindamycin Allergy Rash Verified 11/06/22 12:57 Penicillins Allergy Hives Verified 11/06/22 12:57 Iodine and Iodide Containing AdvReac Emesis Verified 11/06/22 12:57 Produc - Social History Does the pt smoke?: Yes Smoking Status: Current every day smoker Does the pt drink ETOH?: Yes Does the pt have substance abuse?: No - Immunizations Immunizations are current?: Yes Immunizations: TDAP >10years/unknown - POLST Patient has POLST: No POLST Status: Patient wants CPR but no intubation PD ED PE NORMAL - Vitals Vital signs reviewed: Yes - General General: Alert and oriented X 3, No acute distress, Well developed/nourished - HEENT HEENT: Atraumatic, PERRL, EOMI, Moist mucous membranes - Neck Neck: Supple, no meningeal sign - Cardiac Cardiac: RRR, No murmur, Strong equal pulses - Respiratory Respiratory: No respiratory distress, Clear bilaterally - Abdomen Abdomen: Soft, Non tender, Non distended - Derm Derm: Normal color, Warm and dry, No rash - Extremities Extremities: No deformity, No edema - Neuro Neuro: Alert and oriented X 3 - Psych Psych: Normal mood, Normal affect Results - Vitals Vitals: Vital Signs - 24 hr 11/06/22 11/06/22 11/06/22 12:08 13:57 14:54 Temperature 36.1 C L Heart Rate 68 63 60 Respiratory 20 18 18 Rate Blood Pressure 142/79 H 125/84 H 149/88 H O2 Saturation 95 94 93 Oxygen O2 Source Room air - Labs Labs: Laboratory Tests 11/06/22 11/06/22 11/06/22 12:28 12:28 12:56 WBC 7.5 RBC 4.63 Hgb 14.0 Hct 44.0 MCV 95.0 MCH 30.2 MCHC 31.8 L RDW 14.5 Plt Count 266 MPV 9.6 Neut # (Auto) 4.8 Lymph # (Auto) 1.5 Knott # (Auto) 1.0 Eos # (Auto) 0.1 Baso # (Auto) 0.1 Absolute Nucleated RBC 0.00 Nucleated RBC % 0.0 Sodium 138 Potassium 3.5 Chloride 100 L Carbon Dioxide 31 Anion Gap 7.0 BUN 12 Creatinine 0.7 Estimated GFR (MDRD) 82 L Glucose 113 H Calcium 10.2 Total Bilirubin 0.9 AST 25 ALT 16 Alkaline Phosphatase 99 Total Protein 7.3 Albumin 4.0 Globulin 3.3 Albumin/Globulin Ratio 1.2 Lipase 52 Nasal Adenovirus (PCR) NOT DETECTED Nasal B. parapertussis DNA (PCR) NOT DETECTED Nasal Coronavir 229E PCR NOT DETECTED Nasal Coronavir HKU1 PCR NOT DETECTED Nasal Coronavir NL63 PCR NOT DETECTED Nasal Coronavir OC43 PCR NOT DETECTED Nasal Enterovir/Rhinovir PCR NOT DETECTED Nasal Influenza B PCR NOT DETECTED Nasal Influenza A PCR NOT DETECTED Nasal Parainfluen 1 PCR NOT DETECTED Nasal Parainfluen 2 PCR NOT DETECTED Nasal Parainfluen 3 PCR NOT DETECTED Nasal Parainfluen 4 PCR NOT DETECTED Nasal RSV (PCR) NOT DETECTED Nasal B.pertussis DNA PCR NOT DETECTED Nasal C.pneumoniae (PCR) NOT DETECTED Cash Human Metapneumo PCR NOT DETECTED Nasal M.pneumoniae (PCR) NOT DETECTED Nasal SARS-CoV-2 (PCR) NOT DETECTED - Rads (name of study) Sinus study Relevant Findings:: Final report received, See rad report (No acute findings) PD Medical Decision Making - ED course Complexity details: reviewed results, re-evaluated patient, considered differential, d/w patient ED course: The patient was treated symptomatically with IV fluids and antiemetics and worked up with sinus CT, labs, and respiratory PCR panel. Her work-up was largely unremarkable. We have discussed symptomatic management at home and I have provided prescriptions for her. We have discussed the usual indications for return and follow-up. Departure - Departure Disposition: 01 Home, Self Care Clinical Impression: Upper respiratory infection Qualifiers: URI type: unspecified viral URI Qualified Code(s): J06.9 - Acute upper respiratory infection, unspecified Condition: Stable Instructions: ED Cephalgia Unspecified, ED Viral Syndrome Prescriptions: predniSONE [Deltasone] 10 mg PO [id number] #42 tab HYDROcod/ACETAM 5/325 [[place] 5/325] 1 - 2 tablet PO HS #10 tablet Ondansetron Odt [Zofran] 4 mg TL Q6H PRN #10 tablet PRN Reason: Nausea / Vomiting Comments: Your labs look great, as does your sinus CT. The viral panel, which test for only a small fraction of viruses, the ones we can actually test for, is negative. Most likely have one of the many viral upper respiratory illnesses that we cannot test for. It is also possible that the smoke a week or 2 ago triggered some sinus irritation that just has not quite cleared up. Will prescribe some medicine to help with inflammation in your nasal passages and with headache and sleep. Please pick these up at the [facility] pharmacy this afternoon. If you have further concerns, you may follow-up with your primary doctor. Forms: PCP List
[2022-11-06 12:42] LABS: BASOPHILS # (AUTO) 0.1 10^3/uL (0.0-0.1); BASOPHILS % (AUTO) 0.8 %; EOSINOPHILS # (AUTO) 0.1 10^3/uL (0.0-0.7); EOSINOPHILS % (AUTO) 1.9 %; LYMPHOCYTES # (AUTO) 1.5 10^3/uL (1.5-3.5); LYMPHOCYTES % (AUTO) 20.1 %; MEAN CORPUSCULAR HEMOGLOBIN 30.2 pg (27.0-31.0); MEAN CORPUSCULAR HGB CONC 31.8 g/dL (32.0-36.0); MEAN PLATELET VOLUME 9.6 fL (7.9-10.8); MONOCYTES % (AUTO) 13.2 %; NEUTROPHILS # (AUTO) 4.8 10^3/uL (1.5-6.6); NEUTROPHILS % (AUTO) 63.7 %; PLT - PLATELET COUNT 266 10^3/uL (130-450); RED BLOOD COUNT 4.63 10^6/uL (4.20-5.40); RED CELL DISTRIBUTION WIDTH 14.5 % (12.0-15.0); WHITE BLOOD COUNT 7.5 x10^3/uL (4.8-10.8)
[2022-11-06 12:52] LABS: ALBUMIN/GLOBULIN RATIO 1.2 (1.0-2.2); BILIRUBIN,TOTAL 0.9 mg/dL (0.2-1.0); CALCIUM 10.2 mg/dL (8.5-10.3); CREATININE 0.7 mg/dL (0.6-1.3); POTASSIUM 3.5 mmol/L (3.5-4.5); TOTAL PROTEIN 7.3 g/dL (6.4-8.9)
--- OUTSIDE RECORDS SUMMARY | 2022-11-06 13:44 | EXTERNAL MEDICAL SUMMARY RPT | Continuity of Care Document ---
Author Name Unknown Address [address] [place] [address] Phone Organization [facility] Address [address] [place] [address] Phone Care Team Providers Care Title Specialist Name Role Phone Alfonso Ag Unavailable Unavailable Medications date description facility 2022-10-07 00:00 [facility] Problems date description facility 2022-09-16 10:39 Spinal stenosis, lum bar region with neurogenic claudication [facility] 2022-09-16 10:39 Other intervertebral disc displacement, lumbar region [facility] 2022-09-16 10:39 Unspecified thoracic , thoracolumbar and lumbosacral interver [facility] 2022-09-16 10:39 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 [facility] 2022-10-07 00:00 Spondylolisthesis at L4-L5 [facility] Procedures date description facility 2022-09-16 00:00 XR lumbar spine, 4+ views [facility] Results/Labs test date facility value unit notes Social History date description facility 2022-10-07 00:00 Ex-smoker (finding) [facility] ital Vital Signs date measurement value units 2022-10-07 00:00 BMI 38.5 kg/m2 2022-10-07 00:00 BP_diastolic 72 mmHg 2022-10-07 00:00 BP_systolic 130 mmHg 2022-10-07 00:00 heart_rate 68 /min 2022-10-07 00:00 height_metric 152.4 cm 2022-10-07 00:00 height_standard 60 in 2022-10-07 00:00 o2_saturation 95 % 2022-10-07 00:00 temperature_metric 36.44 C 2022-10-07 00:00 temperature_standard 97.6 F 2022-10-07 00:00 weight_metric 89.35 kg 2022-10-07 00:00 weight_standard 196.98 lb
[2022-11-06] MEDS ORDERED: PROMETHAZINE INJ 25 MG in SODIUM CHLORIDE 0.9% 50 ML IV STA (13:52)
[2022-11-06 13:56] LABS: CORONAVIRUS 229E-RESP PCR NOT DETECTED; CORONAVIRUS HKU1-RESP PCR NOT DETECTED
[2022-11-06 13:57] LABS: B. PARAPERTUSSIS- RESP PCR PAN NOT DETECTED; B. PERTUSSIS- RESP PCR PANEL NOT DETECTED; C. PNEUMONIAE- RESP PCR PANEL NOT DETECTED; CORONAVIRUS NL63-RESP PCR NOT DETECTED; CORONAVIRUS OC43-RESP PCR NOT DETECTED; HUMAN METAPNEUMOVIRUS NOT DETECTED; INFLUENZA A- RESP PCR PANEL NOT DETECTED; INFLUENZA B - RESP PCR PANEL NOT DETECTED; M. PNEUMONIAE- RESP PCR PANEL NOT DETECTED; PARAINFLUENZA VIRUS 1 NOT DETECTED; PARAINFLUENZA VIRUS 2 NOT DETECTED; PARAINFLUENZA VIRUS 3 NOT DETECTED; PARAINFLUENZA VIRUS 4 NOT DETECTED; RHINOVIRUS/ENTEROVIRUS NOT DETECTED; RSV- RESP PCR PANEL NOT DETECTED; SARS-CoV-2 -RESP PCR PANEL NOT DETECTED
--- NOTE | 2022-11-06 13:57 | CT Report ---
PROCEDURE: SINUS SCREENING WO INDICATIONS: ongoing congestion, pain in sinuses TECHNIQUE: Noncontrast 3.0 mm axial images acquired from the frontal sinuses to the mid-sella, with coronal and sagittal reformats. For radiation dose reduction, the following was used: automated exposure control , adjustment of mA and/or kV according to patient size. COMPARISON: None. FINDINGS: Image quality: Excellent. Sinuses: Mucous retention cyst versus polyp is present in the right maxillary sinus. Remaining sinuse s are clear. No fluid levels. Ostiomeatal Complexes: Ostiomeatal complexes are patent. No Salbador cells. Miscellaneous: Visualized intra-orbital contents are normal. No delmi bullosa. No nasal septal d eviation. No paradoxical turbinates. IMPRESSION: Right maxillary sinus mucus retention cyst versus polyp. Otherwise, sinuses are clear. Reviewed by: Sharon Leo MD on 11/06/2022 1:55 PM PDT Approved by: Sharon Leo MD on 11/06/2022 1:55 PM PDT Station ID: [id number]
[2022-11-06 14:57] VITALS: BP 149/88; O2SAT 93
== END 2022-11-06 15:03 | disposition home or self-care (01) ==
LOC: ED 12:00
DX: J06.9 Acute upper respiratory infection, unspecified (principal); F17.200 Nicotine dependence, unspecified, uncomplicated; Z20.822 Contact with and (suspected) exposure to COVID-19
CPT/HCPCS: 36415; 70486; 80053; 83690; 85025; 87633; 96365; 96375; 99283; J7040

== ENCOUNTER 2023-02-06 21:35 | Outpatient (CLI) | payer MEDICARE | END 2023-02-06 21:36 | disposition critical access hospital (66) | LOC: EMS 21:35 | DX: M54.2 Cervicalgia (principal); M25.512 Pain in left shoulder; M79.622 Pain in left upper arm; R20.0 Anesthesia of skin; I10 Essential (primary) hypertension | CPT/HCPCS: A0425; A0427 ==

== ENCOUNTER 2023-02-06 21:55 | Emergency (ER) | payer MEDICARE ==
[2023-02-06] MEDS ORDERED: ASPIRIN CHEW 81 MG TABLET PO STA (22:15)
[2023-02-06 22:39] LABS: BASOPHILS % (AUTO) 0.4 %; EOSINOPHILS # (AUTO) 0.1 10^3/uL (0.0-0.7); EOSINOPHILS % (AUTO) 2.2 %; HCT - HEMATOCRIT 36.6 % (37.0-47.0); HGB - HEMOGLOBIN 11.7 g/dL (12.0-16.0); LYMPHOCYTES # (AUTO) 0.9 10^3/uL (1.5-3.5); LYMPHOCYTES % (AUTO) 15.7 %; MEAN CORPUSCULAR HEMOGLOBIN 30.9 pg (27.0-31.0); MEAN CORPUSCULAR VOLUME 96.6 fL (81.0-99.0); MEAN PLATELET VOLUME 10.4 fL (7.9-10.8); MONOCYTES # (AUTO) 0.6 10^3/uL (0.0-1.0); MONOCYTES % (AUTO) 11.4 %; NEUTROPHILS # (AUTO) 3.8 10^3/uL (1.5-6.6); NEUTROPHILS % (AUTO) 69.9 %; PLT - PLATELET COUNT 146 10^3/uL (130-450); RED BLOOD COUNT 3.79 10^6/uL (4.20-5.40); RED CELL DISTRIBUTION WIDTH 13.5 % (12.0-15.0); WHITE BLOOD COUNT 5.4 x10^3/uL (4.8-10.8)
[2023-02-06 22:57] LABS: ALBUMIN 3.8 g/dL (3.2-5.5); ALBUMIN/GLOBULIN RATIO 1.4 (1.0-2.2); BILIRUBIN,TOTAL 0.6 mg/dL (0.2-1.0); CALCIUM 9.6 mg/dL (8.5-10.3); CREATININE 0.6 mg/dL (0.6-1.3); POTASSIUM 3.7 mmol/L (3.5-4.5); TOTAL PROTEIN 6.5 g/dL (6.4-8.9)
[2023-02-06 23:00] LABS: TROPONIN I HIGH SENSITIVITY 10.7 ng/L (2.3-14.8)
[2023-02-06] MEDS ORDERED: HYDROmorphone 1 MG/ML CARPUJECT IVP STA (23:38)
[2023-02-07] MEDS ORDERED: KETOROLAC 30 MG/ML VIAL IVP STA (00:11)
[2023-02-07] MEDS ORDERED: DEXAMETHASONE 10 MG/ML VIAL IV STA (00:11)
[2023-02-07] MEDS ORDERED: oxyCODONE 5 MG TABLET PO STA (00:12)
--- NOTE | 2023-02-07 01:11 | ED Physician Documentation ---
History of Present Illness - Stated complaint Stated Complaint: LEFT SIDED PAIN, TINGLING - Chief complaint Chief Complaint: Ext Problem - History obtained from History obtained from: Patient, EMS - Additonal information Additional information: The patient comes to the emergency department chief complaint of pain from her left lateral back wrapping around under her left axilla For the last couple of days but worse this evening. The patient states that she has not had any shortness of breath, nausea, or diaphoresis. She has a history of shingles and states this feels similar, but she has not noticed any rash. The patient denies fevers or chills. She states that if she even runs her fingers over the area, it feels very sensitive and painful. She states that it was just hurting so much that she cannot go to sleep and decided to come here. No other complaints at this time. 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 02/28/18 11/06/22 Atorvastatin [Lipitor] 40 mg PO QPM #15 tablet 02/28/18 11/06/22 Nitroglycerin [Nitrostat] 0.4 mg SL Q5MIN PRN #30 tablet 02/28/18 11/06/22 amLODIPine [Norvasc] 5 mg PO DAILY 02/15/19 11/06/22 DULoxetine [Cymbalta] 30 mg PO DAILY 04/04/21 11/06/22 Oxycodone HCl/Acetaminophen 5 mg PO Q6HR 04/04/21 11/06/22 [Percocet 5-325 mg Tablet] hydrALAZINE [Apresoline] 25 mg PO DAILY 04/04/21 11/06/22 HYDROcod/ACETAM 5/325 [[place] 5/325] 1 - 2 tablet PO HS #10 tablet 11/06/22 Ondansetron Odt [Zofran] 4 mg TL Q6H PRN #10 tablet 11/06/22 predniSONE [Deltasone] 10 mg PO [id number] #42 tab 11/06/22 Acyclovir 800 mg PO 5XD #35 tablet 02/07/23 HYDROcod/ACETAM 5/325 [[place] 5/325] 1 - 2 tablet PO Q6H PRN #14 tablet 02/07/23 - Allergies Allergies/Adverse Reactions: Allergies Allergy/AdvReac Type Severity Reaction Status Date / Time clindamycin Allergy Rash Verified 11/06/22 12:57 Penicillins Allergy Hives Verified 11/06/22 12:57 Iodine and Iodide Containing AdvReac Emesis Verified 11/06/22 12:57 Produc - Social History Does the pt smoke?: Yes Smoking Status: Current every day smoker Does the pt drink ETOH?: Yes Does the pt have substance abuse?: No - Immunizations Immunizations are current?: Yes Immunizations: TDAP >10years/unknown - POLST Patient has POLST: No POLST Status: Patient wants CPR but no intubation PD ED PE NORMAL - Vitals Vital signs reviewed: Yes - General General: Alert and oriented X 3, No acute distress, Well developed/nourished - HEENT HEENT: Atraumatic, PERRL, EOMI, Moist mucous membranes - Neck Neck: Supple, no meningeal sign - Cardiac Cardiac: RRR, No murmur - Respiratory Respiratory: No respiratory distress, Clear bilaterally - Abdomen Abdomen: Soft, Non tender, Non distended - Derm Derm: Normal color, Warm and dry, No rash - Extremities Extremities: No deformity, No edema, No calf tenderness / cord - Neuro Neuro: Alert and oriented X 3 - Psych Psych: Normal mood, Normal affect Results - Vitals Vitals: Oxygen O2 Source Room air - EKG (time done) 0915 EKG releavant findings:: EKG personally interpreted by author of this note. Relevant findings are: Rate: Rate (enter#) (72) Rhythm: NSR [place]: Anterior hemiblock Intervals: Normal GA QRS: Normal Ischemia: Normal ST segments Compare to prior EKG: Old EKG unavailable Computer interpretation: Agree with computer - Labs Labs: Laboratory Tests 02/06/23 02/06/23 02/07/23 22:34 22:34 00:25 WBC 5.4 RBC 3.79 L Hgb 11.7 L Hct 36.6 L MCV 96.6 MCH 30.9 MCHC 32.0 RDW 13.5 Plt Count 146 MPV 10.4 Neut # (Auto) 3.8 Lymph # (Auto) 0.9 L [place] # (Auto) 0.6 Eos # (Auto) 0.1 Baso # (Auto) 0.0 Absolute Nucleated RBC 0.00 Nucleated RBC % 0.0 Sodium 140 Potassium 3.7 Chloride 101 Carbon Dioxide 32 Anion Gap 7.0 BUN 14 Creatinine 0.6 Estimated GFR (MDRD) 98 Glucose 99 Calcium 9.6 Total Bilirubin 0.6 AST 25 ALT 31 Alkaline Phosphatase 110 Troponin I High Sens 10.7 10.7 Total Protein 6.5 Albumin 3.8 Globulin 2.7 Albumin/Globulin Ratio 1.4 Lipase 44 PD Medical Decision Making - ED course Complexity details: reviewed old records, reviewed results, re-evaluated patient, considered differential, d/w patient ED course: Patient was treated symptomatically in the emergency department and was worked up with laboratory studies and EKG. Her initial troponin was 10.7 and her repeat was exactly the same. Her EKG was unremarkable. The patient reported feeling better after symptomatic treatment and I felt she was stable for discharge home. I discussed with her that this point in time, it is possible that she is having nerve pain from shingles, though since she does not have an outbreak, it is hard to be sure. I have discussed acyclovir with the patient and she would like to just go ahead and get on it, given her history of zoster p reviously. I prescribed this for her, as long as well as symptomatic management of her pain. We have discussed the usual indications for return. Departure - Departure Disposition: 01 Home, Self Care Clinical Impression: Chest pain Qualifiers: Chest pain type: unspecified Qualified Code(s): R07.9 - Chest pain, unspecified Back pain Qualifiers: Back pain location: thoracic back pain Chronicity: acute Back pain laterality: left Qualified Code(s): M54.6 - Pain in thoracic spine Condition: Stable Instructions: ED Chest Pain Atypical Unkn Cause Prescriptions: Acyclovir 800 mg PO 5XD #35 tablet HYDROcod/ACETAM 5/325 [[place] 5/325] 1 - 2 tablet PO Q6H PRN #14 tablet PRN Reason: Pain Comments: Your EKG and labs look good. Both of your sets of cardiac enzymes are normal and unchanged from one another. There is no evidence of an emergent condition tonight. There are many possibilities for what is causing your pain but given the skin sensitivity and the wrapping around the wall of the chest cavity, it is possible that you already developing shingles again. As such, a prescription for an antiviral has been electronically transmitted to the [facility] pharmacy in [place], along with medication for pain. Please pick these up in the morning and start your antiviral medicine. Please also call your doctors office first thing Wednesday to make a follow-up appointment. If you develop severe chest pain or shortness of breath and nausea and facial sweating, please return to the emergency department immediately. Forms: PCP List Discharge Date/Time: 02/07/23 01:29
[2023-02-07 01:35] VITALS: BP 170/86; O2SAT 95
== END 2023-02-07 01:29 | disposition home or self-care (01) ==
LOC: EDUNIT# → ED 21:55
DX: M54.6 Pain in thoracic spine (principal); R07.9 Chest pain, unspecified; I10 Essential (primary) hypertension; F17.200 Nicotine dependence, unspecified, uncomplicated
CPT/HCPCS: 36415; 80053; 83690; 84484; 85025; 93005; 96374; 96375; 99283; A9270; J1170

== ENCOUNTER 2024-11-19 15:23 | Observation (INO) ==
--- NOTE | 2024-11-19 15:33 | ED Physician Documentation ---
PD HPI ABD PAIN Stated complaint Stated Complaint: CONSTIPATION Chief complaint Chief Complaint: Abd Pain Additional information Additional information: 74-year-old female presents to the emergency department via EMS for concerns of abdominal pain, fevers, chills, constipation. Patient had L4-L5 fusion in June she is a very poor historian and unable to contribute much to history as she appears to have some confusion. I spoke with patient who is able to contribute more to the history who says that over the last month or so patient has been declinings and not as sharp as she normally is. Over the last 3 days acutely more confused unable to know what day or time it is when I asked the patient what year it is she tells me it is 1994. Has not says she has not been eating or drinking much at home she is normally independent but moving her arm minimally and has been out of bed less and less daily. says he is unsure if she has been having fevers or chills but has been noticing her to have chills and then she tells her that she is really hot. She also complains of dizziness with ambulation and has been says that she is not wanting to talk lately because there is a sore under her tongue. [place] Coma Scale Assess Eye opening: Spontaneous Verbal response: Confused Motor response: Obeys Commands Total score: 14 Meds/Allgy Home Medications Ambulatory Orders Medication Instructions Recorded Confirmed atenolol 50 mg tablet 50 mg PO DAILY 09/01/1310/31 atorvastatin 40 mg tablet 40 mg PO QPM ##15 02/28/18 0 11/19/24 nitroglycerin 0.4 mg sublingual 0.4 mg sublingual Q5MI N PRN Chest 02/28/18 11/19/24 tablet Pain ##30 amlodipine 5 mg tablet 5 mg PO DAILY 02/15/1911/19 duloxetine 30 mg capsule,delayed 30 mg PO DAILY 11/19/24 release hydralazine 25 mg tablet 25 mg PO DAILY 04/04/2110/31 oxycodone-acetaminophen 5 mg-325 5 mg PO Q6HR 04/04/21 11/19/24 mg tablet (Percocet) hydrocodone 5 mg-acetaminophen 325 1 - 2 tab PO HS #10 tabs 11/06/22 11/19/24 mg tablet ondansetron 4 mg disintegrating 4 mg translingual Q6H PRN Nausea / 11/06/22 11/19/24 tablet Vomiting #10 tabs hydrocodone 5 mg-acetaminophen 325 1 - 2 tab PO Q6H IL N Pain #14 tabs 02/07/23 11/19/24 mg tablet furosemide 20 mg tablet 20 mg PO DAILY 11/19/2410/31 Allergies Allergies Allergy/AdvReac Type Severity Reaction Status Date / Time clindamycin Allergy Rash Verified 11/19/24 15:27 Penicillins Allergy Hives Verified 11/19/24 15:27 Iodine and Iodide Containing AdvReac Emesis Verified 11/19/24 17:00 Produc PFSH Active Problems All Active Problems (Updated 11/19/24 @ 22:43 by Cristian Dyer DNP) Tongue ulcer (Acute) Altered mental status (Acute) Cirrhosis of liver (Acute) Medical History Medical History (Updated 11/19/24 @ 22:43 by Cristian Dyer DNP) HLD (hyperlipidemia) HTN (hypertension) Surgical History Surgical History (Updated 11/19/24 @ 15:46 by Vito Saha RN) History of back surgery Social History Social History (Updated 11/19/24 @ 15:46 by Vito Saha RN) Smoking Status: Former smoker How many cigarettes a day do you smoke? (20 cigarettes=1 Pk): 10 Do you dip or chew tobacco?: No Do you vape?: Yes Patient requests smoking cessation consult: Yes Initiate information on smoking cessation: Yes Living arrangement: At home Living Condition: With spouse/s.o. Home Mobility Equipment: Walker Do you feel safe in your home environment?: Yes History of physical, verbal, emotional, or financial abuse?: No ETOH Use: None Frequency: Occasional Substance Use: denies use POLST Patient has POLST: No Exam Exam Vital Signs: Vital Signs x48h Temp Pulse Resp BP Pulse Ox O2 Flow Rate 11/19/24 17:13 69 16 119/65 93 1 11/19/24 15:48 2 11/19/24 15:42 75 16 120/70 85 L 2 11/19/24 15:40 74 88 L 11/19/24 15:27 36.9 C 77 16 143/75 H 92 Constitutional abnormal general appearance (disheveled), (appears older than stated age) and (frail appearing), no apparent distress, abnormal body habitus (obese), limitations noted (altered mental status) and alert HENMT normocephalic large left tongue ulcer 3-4 cm in diameter Eyes PERRL, EOMs intact bilaterally and no nystagmus Neck/C-Spine visual inspection normal Chest inspection of chest normal and palpation of chest normal Respiratory breath sounds equal bilaterally Cardiovascular normal heart rate noted and regular rhythm noted Gastrointestinal abdomen normal to inspection, nontender to palpation, abnormal bowel sounds noted (hypoactive bowel sounds) and no masses Genitourinary no CVA tenderness Neurology sales ledger administrator II-XII intact, no focal motor deficit noted, speech normal, coordination normal, no pronator drift noted and GCS calculation - Eye opening: Spontaneous Verbal response: Confused Motor response: Obeys Commands [place] Coma Scale total score: 14 Psychiatry memory abnormal (short term memory loss) and (joint terminal attack controller memory loss) Skin skin color normal Results Vitals Vitals: Vital Signs - 24 hr 11/19/24 15:27 11/19/24 15:40 11/19/24 15:40 Temperature 36.9 C Temperature Source Temporal Artery Scan Pulse Rate 77 74 Respiratory Rate 16 Blood Pressure 143/75 H O2 Saturation 92 88 L Oxygen Delivery Method Nasal Cannula O2 Source Room air Room air Oxygen Flow Rate 2 If not protocol: Oxygen Flow, liters/minute Pain Intensity 8 11/19/24 15:42 11/19/24 15:48 11/19/24 16:35 Temperature Temperature Source Pulse Rate 75 Respiratory Rate 16 Blood Pressure 120/70 O2 Saturation 85 L Oxygen Delivery Method Nasal Cannula O2 Source Nasal cannula Oxygen Flow Rate 0.5 If not protocol: Oxygen Flow, liters/minute 2 2 Pain Intensity 11/19/24 17:13 Temperature Temperature Source Pulse Rate 69 Respiratory Rate 16 Blood Pressure 119/65 O2 Saturation 93 Oxygen Delivery Method O2 Source Nasal cannula Oxygen Flow Rate If not protocol: Oxygen Flow, liters/minute 1 Pain Intensity Oxygen O2 Source Nasal cannula Oxygen Flow Rate 0.5 Labs Labs: Laboratory Tests 11/19/24 11/19/24 16:26 21:15 WBC 7.7 RBC 4.14 L Hgb 11.0 L Hct 35.4 L MCV 85.5 MCH 26.6 L MCHC 31.1 L RDW 17.4 H Plt Count 224 MPV 9.7 Neut # (Auto) 6.3 Lymph # (Auto) 0.8 L [place] # (Auto) 0.6 Eos # (Auto) 0.0 Baso # (Auto) 0.0 Absolute Nucleated RBC 0.00 Nucleated RBC % 0.0 Sodium 130 L Potassium 3.1 L Chloride 88 L Carbon Dioxide 34 H Anion Gap 8.0 BUN 12 Creatinine 0.6 Estimated GFR (MDRD) 98 Glucose 101 Calcium 8.2 L Magnesium 1.2 L Total Bilirubin 1.7 H AST 23 ALT 8 L Alkaline Phosphatase 85 Ammonia 42.1 Total Protein 6.8 Albumin 2.4 L Globulin 4.4 H Albumin/Globulin Ratio 0.5 L Lipase 44 Rads (name of study) Head CT without: Relevant Findings:: Final report received and EMP independent interpretation of test Interpretation: IMPRESSION: Unremarkable CT of the brain CT abdomen pelvis with contrast: Relevant Findings:: Final report received and EMP independent interpretation of test Interpretation: IMPRESSION: Hepatic cirrhosis, splenomegaly and ascites. Patent portal vein No evidence of small bowel obstruction PD Medical Decision Making ED course ED course: 74-year-old female presents to emergency department for overall generalized malaise, confusion, profound weakness, concerns of constipation. Labs are complete for further evaluation no leukocytosis mild anemia, hemoglobin 11.0, hematocrit 35.0 which appears to be at patient's baseline according to previous labs. She has got some hyponatremia, NA 130, hypokalemia, 3.1, hypomagnesemia, 1.2 she was given IV magnesium and potassium for replacement. She also appears to have some hyperbilirubinemia, 1.7 with low albumin of 2.4. CT head was complete per patient's confusion and does not reveal any acute abnormalities or findings CT abdomen pelvis was complete for further evaluation and reveals hepatic cirrhosis, splenomegaly, ascites with patent portal vein without evidence of small bowel obstruction. Patient says that she has never been diagnosed with cirrhosis before most likely intrahepatic portal hypertension due to new diagnoses of cirrhosis. When I speak with patient's he says that she has been acutely more confused he has been noticing a steady decline over the last month or so but significant decline over the last 3 days. Patient also has a very large ulcer to the left side of her tongue with malodorous breath she says this has been ongoing now for about the last week or 2 to the point where she is having a hard time eating or drinking anything or even communicating due to the severity of the pain. She has never experienced this before but she says anytime she talks or eats she continuously reinjures this area on her tongue. Pt would benefit from hospitalization. Report given to oncoming physician who will work on admission due to change of shift. Discharge Plan Discharge Clinical Impression: Cirrhosis of liver, Altered mental status, Tongue ulcer Prescriptions: No Action atenolol 50 MG tablet 50 mg PO DAILY atorvastatin 40 MG tablet 40 mg PO QPM Qty: 15 0RF nitroglycerin 0.4 MG tablet, sublingual 0.4 mg sublingual Q5MIN PRN (Reason: Chest Pain) Qty: 30 0RF amlodipine 5 MG tablet 5 mg PO DAILY hydralazine 25 MG tablet 25 mg PO DAILY oxycodone-acetaminophen [Percocet] 1 EACH tablet 5 mg PO Q6HR duloxetine 30 MG capsule,delayed release(DR/EC) 30 mg PO DAILY hydrocodone-acetaminophen 1 TAB tablet 1 - 2 tab PO HS Qty: 10 0RF ondansetron 4 MG tablet,disintegrating 4 mg translingual Q6H PRN (Reason: Nausea / Vomiting) Qty: 10 0RF hydrocodone-acetaminophen 1 TAB tablet 1 - 2 tab PO Q6H PRN (Reason: Pain) Qty: 14 0RF Rx Instructions: Take 1-2 tablets every 6 hours as needed furosemide 20 mg tablet 20 mg PO DAILY Patient Comments: TAKE 1 TABLET BY MOUTH DAILY Print Language: Moroccan Stand Alone Forms: PCP List
[2024-11-19 16:34] LABS: HCT - HEMATOCRIT 35.4 % (37.0-47.0); HGB - HEMOGLOBIN 11.0 g/dL (12.0-16.0); MEAN PLATELET VOLUME 9.7 fL (7.9-10.8); NRBC ABSOLUTE COUNT (AUTO) 0.00 x10^3/uL; NUCLEATED RED BLOOD CELLS AUTO 0.0 /100WBC; PLT - PLATELET COUNT 224 10^3/uL (130-450); RED CELL DISTRIBUTION WIDTH 17.4 % (12.0-15.0)
[2024-11-19 16:51] LABS: ALT ALANINE AMINOTRANSFERASE 8.0 IU/L (10-60); AST ASPARTATE AMINOTRANSFERASE 23.0 IU/L (10-42); BUN - BLOOD UREA NITROGEN 12.0 mg/dL (6-20); CARBON DIOXIDE - CO2 34.0 mmol/L (21-32); CREATININE 0.6 mg/dL (0.6-1.3); GFR - MDRD 98.0 (>89)
[2024-11-19] MEDS: POTASSIUM CHLOR 10 MEQ/100 ML 10 MEQ/100 ML BAG IV SCH (17:40)
--- NOTE | 2024-11-19 18:33 | CT Report ---
PROCEDURE: CT Head WO INDICATIONS: AMS, dizziness TECHNIQUE: Helical axial CT of the brain was obtained without contrast and reformatted in multiple planes. COMPARISON: None FINDINGS: CSF spaces: Ventricles are appropriate in size and position. No hydrocephalus. Basal cisterns unremarkable. Brain: No midline shift. No intracranial masses or hemorrhage. Downs-white matter interface is normal. Skull and face: Calvarium and skull base are unremarkable without suspicious lesion. Sinuses: Visualized sinuses and mastoids are clear. IMPRESSION: Unremarkable CT of the brain Reviewed by: Parker Harmon MD on 11/19/2024 5:30 PM AKROBIN Approved by: Parker Harmon MD on 11/19/2024 5:30 PM AKDT Station ID: [id number]
[2024-11-19] MEDS: MAGNESIUM SULFATE 1 GM/2 ML VIAL IVP STA (18:38)
[2024-11-19] MEDS: MAGNESIUM SULFATE 2 GRAM 2 GM/50 ML BAG IV ONE (18:41)
--- NOTE | 2024-11-19 18:54 | CT Report ---
PROCEDURE: CT Abdomen/Pelvis W INDICATIONS: r/o SBO nausea, abd pain generalized CONTRAST: omni 300 100mL TECHNIQUE: After the administration of intravenous contrast, a CT scan of the abdomen and pelvis was performed. Images were recorded and evaluated at appropriate window settings. Reformats: coronal and sagittal. COMPARISON: None. FINDINGS: Lower chest: Unremarkable. Liver: Cirrhotic changes in the liver include lobular capsule. Perihepatic free fluid. Patent main portal vein Gallbladder: Cholecystectomy Biliary tree: No intrahepatic or extrahepatic dilation, accounting for age. Spleen: Splenomegaly, 13.5 cm. Small splenic infarct Pancreas: No pancreatic ductal dilation. Adrenals: No adrenal nodule. Kidneys and ureters: No hydronephrosis. No renal cystic lesion which requires follow up. No solid mass. Stomach, bowel and peritoneum: No gastric or small bowel dilation. No abnormal wall thickening. Moderate free fluid in the pelvis. No organized abscess. Multiple diverticula arise from the sigmoid colon without evidence of diverticulitis. Lymph nodes: No central or retroperitoneal adenopathy. Vessels: No infrarenal aortic aneurysm. Patent portal vein. PELVIS Reproductive organs: Unremarkable. Bladder: No abnormal wall thickening. Pelvic lymph nodes: No pelvic adenopathy by size criteria. Bones: No aggressive osseous abnormality. Instrumented L4-5 and L5-S1 discectomy and fusion Other: No significant ventral or inguinal hernia. IMPRESSION: Hepatic cirrhosis, splenomegaly and ascites. Patent portal vein No evidence of small bowel obstruction Reviewed by: Parker Harmon MD on 11/19/2024 5:51 PM AKROBIN Approved by: Parker Harmon MD on 11/19/2024 5:51 PM AKDT Station ID: [id number]
--- NOTE | 2024-11-19 23:23 | HISTORY & PHYSICAL EXAMINATION ---
Chief Complaint Chief Complaint Chief Complaint: not feeling well History of Present Illness Admitted From Admitted From:: home via ems History Obtained From History obtained from: ED physician, patient Exam Limitations: telemedicine, altered mental status History of Present Illness HPI Comment/Other: Mrs. Hendrickson is a 74yoF with h/o hypertension, chronic back pain that was brought in for evaluation of progressive confusion and malaise. Per patient , she has not been herself since her back surgery in June. She reports to being bed bound weak. Per family, she has been increasingly forgetful for the past 3 month. Her symptoms have become acutely worse over the past 3 days. No fevers or chills reported. No focal neurologic deficits reported. In the ED CT head was negative. CT abdomen showed liver cirrhosis, liver enzymes were normal, ammonia level within normal limits. 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 This visit was performed using telehealth tools, including phone and live-video. patient provided verbal consent to complete this telemedicine encounter. During the time my interview and evaluation, the patient was located at [facility] in the [facility], I was located in [place]. Review of Systems Status of ROS: 10 or more systems reviewed and unremarkable except as noted in history and below PFSH Active Problems All Active Problems (Updated 11/19/24 @ 22:43 by Cristian Dyer DNP) Tongue ulcer (Acute) Altered mental status (Acute) Cirrhosis of liver (Acute) Medical History Medical History (Updated 11/19/24 @ 22:43 by Cristian Dyer DNP) HLD (hyperlipidemia) HTN (hypertension) Surgical History Surgical History (Updated 11/19/24 @ 15:46 by Vito Saha RN) History of back surgery Social History Social History (Updated 11/19/24 @ 15:46 by Vito Saha RN) Smoking Status: Former smoker How many cigarettes a day do you smoke? (20 cigarettes=1 Pk): 10 Do you dip or chew tobacco?: No Do you vape?: Yes Patient requests smoking cessation consult: Yes Initiate information on smoking cessation: Yes Living arrangement: At home Living Condition: With spouse/s.o. Home Mobility Equipment: Walker Do you feel safe in your home environment?: Yes History of physical, verbal, emotional, or financial abuse?: No ETOH Use: None Frequency: Occasional Substance Use: denies use POLST Patient has POLST: No Meds/Allgy Home Medications Ambulatory Orders Medication Instructions Recorded Confirmed atenolol 50 mg tablet 50 mg PO DAILY 09/01/1310/31 atorvastatin 40 mg tablet 40 mg PO QPM ##15 02/28/18 0 11/19/24 nitroglycerin 0.4 mg sublingual 0.4 mg sublingual Q5MI N PRN Chest 02/28/18 11/19/24 tablet Pain ##30 amlodipine 5 mg tablet 5 mg PO DAILY 02/15/1911/19 duloxetine 30 mg capsule,delayed 30 mg PO DAILY 11/19/24 release hydralazine 25 mg tablet 25 mg PO DAILY 04/04/2110/31 oxycodone-acetaminophen 5 mg-325 5 mg PO Q6HR 04/04/21 11/19/24 mg tablet (Percocet) hydrocodone 5 mg-acetaminophen 325 1 - 2 tab PO HS #10 tabs 11/06/22 11/19/24 mg tablet ondansetron 4 mg disintegrating 4 mg translingual Q6H PRN Nausea / 11/06/22 11/19/24 tablet Vomiting #10 tabs hydrocodone 5 mg-acetaminophen 325 1 - 2 tab PO Q6H MD N Pain #14 tabs 02/07/23 11/19/24 mg tablet furosemide 20 mg tablet 20 mg PO DAILY 11/19/2410/31 Allergies Allergies Allergy/AdvReac Type Severity Reaction Status Date / Time clindamycin Allergy Rash Verified 11/19/24 15:27 Penicillins Allergy Hives Verified 11/19/24 15:27 Iodine and Iodide Containing AdvReac Emesis Verified 11/19/24 17:00 Produc Exam Exam Vital Signs: Vital Signs x48h Temp Pulse Resp BP Pulse Ox O2 Flow Rate 11/19/24 17:13 69 16 119/65 93 1 11/19/24 15:48 2 11/19/24 15:42 75 16 120/70 85 L 2 11/19/24 15:40 74 88 L 11/19/24 15:27 36.9 C 77 16 143/75 H 92 Examination as recorded is based on patient and staff reported information as well as peripheral observation. Constitutional normal general appearance and no apparent distress HENMT dentition abnormal tongue lesion 3-4cm Eyes PERRL Cardiovascular normal heart rate noted Gastrointestinal abdomen normal to inspection, nontender to palpation and nondistended Extremities normal to inspection and full ROM Neurology no focal motor deficit noted and GCS 15 Skin skin color normal Conclusion/Plan Problem List (1) Altered mental status: Plan: etiology uncertain, will evaluate for infectious etiology. neurologic and hepatic less likely based on initial evaluation, but will complete work -CT head reviewed: no acute intracrainial abnormality -will proceed with MRI -monitonr with neurocheck -will review home medications for iatrogenic causes -will obtain blood cultures and UA: cultures and toxicolgy screening -CT abdomen reviewed: showing cirrohsis of the liver, no ascites, no obstruction (2) Tongue ulcer: Plan: patient denies h/o recent trauma, no evidence of thrush. -will evaluate for infectious etiology: rpr, hsv pending -further evaluation by ENT or OMFS may be warranted for biopsy and follow up (3) Cirrhosis of liver: Plan: h/o etoh usage, patient denies know h/o liver disease -no abdominal pain, fevers, jaudice or clincial signs of acute decompensation -follow up with GI may be warranted. Lab Results Lab results reviewed: Yes 11/19/24 16:26 11/19/24 16:26 Core Measures Anticipated LOS I expect patient to be DC'd or transferred within 96 hours.: Yes DVT/VTE - Prophylaxis VTE/DVT Device ordered at admit?: Yes
[2024-11-20 00:17] LABS: GLUCOSE, URINE (UA) NEGATIVE (NEGATIVE); KETONES,URINE (UA) NEGATIVE (NEGATIVE); OCCULT BLOOD,URINE NEGATIVE (NEGATIVE)
[2024-11-20 00:20] LABS: CASTS, URINE 0-2 Hyaline Casts /LPF; SQUAMOUS EPITHELIAL CELL,UR FEW Squamous (<= Few)
--- NOTE | 2024-11-20 05:00 | ED Physician Documentation ---
ED Addendum Addendum Addendum: The patient was signed out to me at change of shift, pending urinalysis and admission to the hospital after presenting with confusion and general decline over the last few months, especially worse over the last few days. Urinalysis was done and came back negative. In reviewing the patient's results, I realize Dr. Lucio had indeed written admission orders on the patient already after her conversation with nurse practitioner Gomez. However, although we originally had thought that the patient had been assigned a bed, we were informed by the night charge nurse on the floor that they would not be assigning the patient a bed after all and that the patient would have to wait in the emergency department. At this point in time, the patient has been calm and cooperative and continues to board in the emergency department. She will be signed out at change of shift to my oncoming colleague, Pending bed availability on the floor. Final impression: 1. Altered mental status 2. Cirrhotic liver disease Disposition: Admit to hospitalist service in stable but serious condition. Discharge Plan Discharge Patient Disposition: ED Place in Observation Condition: Serious Clinical Impression: Cirrhosis of liver, Altered mental status, Tongue ulcer Prescriptions: No Action atenolol 50 MG tablet 50 mg PO DAILY atorvastatin 40 MG tablet 40 mg PO QPM Qty: 15 0RF nitroglycerin 0.4 MG tablet, sublingual 0.4 mg sublingual Q5MIN PRN (Reason: Chest Pain) Qty: 30 0RF amlodipine 5 MG tablet 5 mg PO DAILY hydralazine 25 MG tablet 25 mg PO DAILY oxycodone-acetaminophen [Percocet] 1 EACH tablet 5 mg PO Q6HR duloxetine 30 MG capsule,delayed release(DR/EC) 30 mg PO DAILY hydrocodone-acetaminophen 1 TAB tablet 1 - 2 tab PO HS Qty: 10 0RF ondansetron 4 MG tablet,disintegrating 4 mg translingual Q6H PRN (Reason: Nausea / Vomiting) Qty: 10 0RF hydrocodone-acetaminophen 1 TAB tablet 1 - 2 tab PO Q6H PRN (Reason: Pain) Qty: 14 0RF Rx Instructions: Take 1-2 tablets every 6 hours as needed furosemide 20 mg tablet 20 mg PO DAILY Patient Comments: TAKE 1 TABLET BY MOUTH DAILY Print Language: Israeli Stand Alone Forms: PCP List
--- NOTE | 2024-11-20 07:09 | PROVIDER PROGRESS NOTE ---
Subjective Prog Note Date Prog Note Date: 11/20/24 Prog Note Time: 07:07 Subjective Pt reports feeling: No change Subjective: Patient was admitted overnight. She has no significant leukocytosis. Hgb 11. Sodium and potassium slightly low this morning. Sodium was repleted. She has a slight metabolic alkalosis of unclear etiology. Bili 1.7, transaminases normal. UA without evidence of infection. Blood alcohol level normal. She stayed in the ED all day. When I see her this afternoon, she is resting comfortably in her bed in the ED. The lights are out. She wakes easily from sleep. She is able to have a full conversation with me without any concentration issues. She does relay that last night she was very distant, would not interact with other people. She remembers this, but does not know why. She relates that she has had progressive malaise and fatigue over the last few days. She has been spending a lot of time in bed. She feels fatigued despite not having much exertion. She relates that most of her symptoms may have gone back to when she dialed up her opiate medications several months ago. Notably her med list does not correspond with her reported history. She says that she is only on oxycodone 15 mg 4 times daily, a statin, furosemide, and occasional bowel meds, mostly Dulcolax. Her PDMP is consistent with her oxycodone prescription. She does not remember ever being told she has cirrhosis. Denies fever or chills, denies chest pain. Occasional dyspnea. Denies abdominal pain, nausea, vomiting, or diarrhea. She has been constipated for a number of days, does not know how long. Denies dysuria or urinary frequency. Denies any new rashes. Has good sensation in all of her extremities. Objective Vital Signs/Intake & Output Reviewed Vital Signs: Yes Vital Signs: Vital Signs x48h Pulse Resp BP Pulse Ox O2 Flow Rate 11/20/24 05:00 56 L 18 112/68 95 2 11/20/24 03:00 52 L 18 110/66 98 2 11/20/24 01:00 54 L 18 112/74 98 Intake & Output: Intake & Output 11/17/24 11/18/24 11/19/24 11/20/24 23:59 23:59 23:59 23:59 Intake Total 450 / 450 Balance 450 / 450 Weight (kg) 67 kg Objective Comments/Other: GEN: No acute distress HEENT: NC/AT, normal appearance of external ears and nose. Hearing baseline. Cardiac: Regular rate and rhythm, no murmurs. Pulm: Lungs CTA bilaterally, no cough, no wheezes Abdomen: Obese, soft, nontender. No palpable liver edge. No rebound tenderness or guarding. Extremities: Moves all 4 extremities equally. Normal tone. Neuro: Face symmetric, CN II through XII intact grossly. Strength 5/5 in bilateral upper and lower extremities. Sensation intact throughout. Gait exam deferred. Psych: Mood euthymic with congruent affect.Appropriate. Lab Results 11/19/24 16:26 11/20/24 07:46 Other Labs: Lab Results x24hrs 11/20/24 11/19/24 11/19/24 Range/Units 00:03 21:15 16:26 WBC 7.7 (4.8-10.8) x10^3/uL RBC 4.14 L (4.20-5.40) 10^6/uL Hgb 11.0 L (12.0-16.0) g/dL Hct 35.4 L (37.0-47.0) % MCV 85.5 (81.0-99.0) fL MCH 26.6 L (27.0-31.0) pg MCHC 31.1 L (32.0-36.0) g/dL RDW 17.4 H (12.0-15.0) % Plt Count 224 (130-450) 10^3/uL MPV 9.7 (7.9-10.8) fL Neut # (Auto) 6.3 (1.5-6.6) 10^3/uL Lymph # (Auto) 0.8 L (1.5-3.5) 10^3/uL Cloud # (Auto) 0.6 (0.0-1.0) 10^3/uL Eos # (Auto) 0.0 (0.0-0.7) 10^3/uL Baso # (Auto) 0.0 (0.0-0.1) 10^3/uL Absolute Nucleated RBC 0.00 x10^3/uL Nucleated RBC % 0.0 /100WBC Sodium 130 L (135-145) mmol/L Potassium 3.1 L (3.5-4.5) mmol/L Chloride 88 L (101-111) mmol/L Carbon Dioxide 34 H (21-32) mmol/L Anion Gap 8.0 (6-13) BUN 12 (6-20) mg/dL Creatinine 0.6 (0.6-1.3) mg/dL Estimated GFR (MDRD) 98 (>89) Glucose 101 (74-104) mg/dL Calcium 8.2 L (8.5-10.3) mg/dL Magnesium 1.2 L (1.7-2.3) mg/dL Total Bilirubin 1.7 H (0.2-1.0) mg/dL AST 23 (10-42) IU/L ALT 8 L (10-60) IU/L Alkaline Phosphatase 85 (42-121) IU/L Ammonia 42.1 (18-72) umol/L Total Protein 6.8 (6.4-8.9) g/dL Albumin 2.4 L (3.2-5.5) g/dL Globulin 4.4 H (2.1-4.2) g/dL Albumin/Globulin Ratio 0.5 L (1.0-2.2) Lipase 44 (11-82) U/L Urine Color YELLOW Urine Clarity CLEAR (CLEAR) Urine pH 6.0 (5.0-7.5) PH Ur Specific [place] 1.005 (1.002-1.030) Urine Protein NEGATIVE (NEGATIVE) mg/dL Urine Glucose (UA) NEGATIVE (NEGATIVE) mg/dL Urine Ketones NEGATIVE (NEGATIVE) mg/dL Urine Occult Blood NEGATIVE (NEGATIVE) Urine Nitrite NEGATIVE (NEGATIVE) Urine Bilirubin NEGATIVE (NEGATIVE) Urine Urobilinogen 0.2 (NORMAL) (NORMAL) E.U./dL Ur Leukocyte Esterase NEGATIVE (NEGATIVE) Urine RBC 0-5 (0-5) /HPF Urine WBC 0-3 (0-5) /HPF Ur Squamous Epith Cells FEW Squamous (<= Few) Urine Bacteria Few (None Seen) /HPF Urine Casts 0-2 Hyaline Casts /LPF Ur Microscopic Review NOT INDICATED Urine Culture Comments NOT INDICATED Ethyl Alcohol < 10.0 mg/dL Assessment/Plan Problem List (1) Altered mental status: Impression: Seems to have cleared. Unclear if this was may be related to her pain medications. She is no longer altered. Nothing acute on her MRI which is completed 11/20. She has not had any neurochecks, but she seems to have cleared somewhat. Given later hour in the day, we will continue to monitor and try and get her bowels moving. Overall seems syndromic related to her pain, lack of sleep, and opiate intoxication. She may have been appropriate for discharge later tonight, but I am unable to get her for collateral. * Advancing diet * Will add bowel meds. * Restart oxycodone, will try lower dose, evaluate for adequate pain control * BMP a.m. (2) Tongue ulcer: Impression: Unclear, she has an ulceration on the lateral aspect of her tongue. It looks like a bite wound vs herpetic lisette. She says that it affects her appetite. * Lidocaine swish and spit * Follow-up with ENT postdischarge, not acute. * HSV and RPR pending (3) Cirrhosis of liver: Impression: Unclear the patient actually has cirrhosis. It is read on her CT scan is hepatic cirrhosis. She also has splenomegaly and some ascites. The mildly elevated bilirubin. She has a normal platelet count. No INR has been collected. No clear evidence of synthetic dysfunction Hepatic encephalopathy may have explained her initial presentation, however she is cleared without any bowel movement and is much more alert this afternoon than she was yesterday. * Will check INR, calculate fib 4 score * Not decompensated, defer FibroScan/ultrasound to outpatient management * Continue furosemide, BMP AM * Reduce Tylenol dose until proven otherwise, 2 g max per day (4) Lumbar back pain: Impression: Patient has a longstanding history of lumbar back pain. She is apparently had previous lumbar surgeries. She has no neurologic symptoms from this. She is neurovascularly intact to her bilateral lower extremities. No red flag signs. She is taking oxycodone for several years for this. Confirmed by PDMP * Resume oxycodone, lower dose than her normal. Adding as needed only as she appears comfortable on my exam. * Bowel meds scheduled for now
[2024-11-20 08:07] LABS: BUN - BLOOD UREA NITROGEN 13.0 mg/dL (6-20); CARBON DIOXIDE - CO2 32.0 mmol/L (21-32); CREATININE 0.5 mg/dL (0.6-1.3); GFR - MDRD 121.0 (>89)
[2024-11-20] MEDS: oxyCODONE 5 MG TABLET PO STA (11:02)
--- NOTE | 2024-11-20 13:22 | MRI Report ---
PROCEDURE: MRI Brain WO INDICATIONS: worsening confusion TECHNIQUE: Multisequence MRI of the brain was performed without intravenous contrast. COMPARISON: Correlation is made with the head CT dated 11/18/2024. FINDINGS: Image quality: Diagnostic. CSF Spaces: Basal cisterns are patent. No extra-axial fluid collections. Ventricles are normal in size and shape. Brain: No intracranial mass effect or hemorrhage. Downs/white matter interface is normal. Brainstem appears normal. Diffusion-weighted images demonstrate no acute ischemic insult. No chronic ischemic insults. Normal intravascular flow voids are present. Skull and face: Calvarium has normal marrow signal. Orbits appear normal. Hyperostosis frontalis is incidentally noted, which is not frankly abnormal for a female patient of this age. Sinuses: Sinuses and mastoids are clear. IMPRESSION: No findings of acute or subacute infarction are seen. No imaging explanation is found for the patient's presenting symptoms. Reviewed by: Tirso Moon MD on 11/20/2024 12:18 PM ANTHONY Approved by: Tirso Moon MD on 11/20/2024 12:18 PM ANTHONY Station ID: [id number]
[2024-11-20] MEDS ORDERED: ACETAMINOPHEN 325 MG TABLET PO PRN (17:12)
[2024-11-20] MEDS ORDERED: SODIUM CHLORIDE FLUSH 0.9% 10 ML SYRINGE IVP PRN (17:12)
[2024-11-20] MEDS ORDERED: LIDOCAINE VISCOUS 2% 15 ML UDC MM PRN (17:24)
[2024-11-20] MEDS ORDERED: ACETAMINOPHEN 500 MG TABLET PO PRN (17:29)
[2024-11-20] MEDS: SODIUM CHLORIDE 0.9% 1,000 ML IV SCH (17:39)
[2024-11-20] MEDS: SODIUM CHLORIDE FLUSH 0.9% 10 ML SYRINGE IVP SCH (17:39)
[2024-11-20] MEDS: SENNA 8.6 MG TABLET PO SCH (21:58)
[2024-11-20] MEDS: oxyCODONE 5 MG TABLET PO PRN (23:52)
[2024-11-21 06:04] LABS: RPR Non Reactive (Non Reactive)
[2024-11-21 08:17] VITALS: O2SAT 95
[2024-11-21] MEDS: FUROSEMIDE 20 MG TABLET PO SCH (08:26)
--- NOTE | 2024-11-21 09:41 | Discharge Summary ---
"Discharge Summary Admit Date: 11/19/24 Discharge Date: 11/21/24 Discharging Provider: Dr. Jordyn Elliott Primary Care Provider: Taina Page Code Status: Attempt Resuscitation Discharge Facility Name: Home DIAGNOSES Discharge Diagnoses with Status of Each Condition: Altered mental statusresolved. Likely due to oxycodone overus medication dosage increase. Advised to go back to lower dose. Tongue ulcerimproving. RPR was negative, HSV is pending. Lidocaine swish and spit. If persist, follow-up with ENT outpatient. Cirrhosis of liverCT abdomen/pelvis shows splenomegaly, ascites, as well as hepatic cirrhosis, which is completely new for the patient. Advised to follow- up in the outpatient with her primary care provider, for GI referral, and further imaging. Lower back paincontinue lower dose oxycodone. HPI History of Present Illness: Per Tanya Bond: Mrs. Hendrickson is a 74yoF with h/o hypertension, chronic back pain that was brought in for evaluation of progressive confusion and malaise. Per patient , she has not been herself since her back surgery in June. She reports to being bed bound weak. Per family, she has been increasingly forgetful for the past 3 month. Her symptoms have become acutely worse over the past 3 days. No fevers or chills reported. No focal neurologic deficits reported. In the ED CT head was negative. CT abdomen showed liver cirrhosis, liver enzymes were normal, ammonia level within normal limits. 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 This visit was performed using telehealth tools, including phone and live-video. patient provided verbal consent to complete this telemedicine encounter. During the time my interview and evaluation, the patient was located at [facility] in the [facility], I was located in [place]. CONSULTS | PROCEDURES Procedures: Brain MRIno acute infarct or subacute infarct. Abdomen/pelvis CThepatic cirrhosis, splenomegaly, ascites, patent portal vein. Head CTunremarkable CT of the brain. HOSPITAL COURSE Hospital Course: Patient is a 74-year-old female with a history of acute on chronic lower back pain on chronic opioid therapy who presented for altered mental status. According to EMR review, and patient, she was very out of it, and confused. Initially, there were concerns for acute ischemic event. Head CT, brain MRI were negative for any acute event. An abdomen/pelvis CT also was done, and it showed hepatic cirrhosis, splenomegaly, ascites. This is a completely new diagnosis for the patient. She denies any alcohol use. She does endorse some hypercholesterolemia, but has never been told that she has fatty liver disease in the past. She was advised to follow-up in the outpatient with her primary care provider for further testing, and GI referral. By the next morning, her confusion had completely resolved. She was alert and oriented x 4, and had no focal neurological deficits. Her altered mentation resolved. She was deemed stable for discharge home, and advised to take a lower dose of her oxycodone. She was advised to also follow-up with her primary care provider very closely to follow-up on the findings of her CT abdomen/pelvis. ALLERGIES Allergies Allergy/AdvReac Type Severity Reaction Status Date / Time clindamycin Allergy Rash Verified 11/19/24 15:27 Penicillins Allergy Hives Verified 11/19/24 15:27 Iodine and Iodide Containing AdvReac Emesis Verified 11/19/24 17:00 Produc MEDICATIONS Ambulatory Orders Medication Instructions Recorded Confirmed atorvastatin 40 mg tablet 40 mg PO QPM ##15 02/28/18 0 11/19/24 ondansetron 4 mg disintegrating 4 mg translingual Q6H PRN Nausea / 11/06/22 11/19/24 tablet Vomiting #10 tabs furosemide 20 mg tablet 20 mg PO DAILY 11/19/2410/31 atenolol 100 mg tablet 100 mg PO DAILY 11/21/24 hydralazine 50 mg tablet 50 mg PO TID 11/21/24 lidocaine HCl 2 % mucosal solution 5 ml mucous membran e Q4H PRN Mouth 11/21/24 Sore Pain #100 mL methylprednisolone 4 mg tablets in mg 11/21/24 a dose pack oxycodone 15 mg tablet 15 mg PO Q4H 11/21/24 Held on 11/21/24. Instructions: Resume on 11/28/24. Please resume your lower dose of oxycodone. potassium chloride 10 mEq 10 meq PO DAILYWM 11/21/24 0 11/21/24 tablet,extended release(part/cryst) PHYSICAL EXAM AT DISCHARGE Vital Signs: Vital Signs x48h Temp Pulse Resp BP Pulse Ox 11/21/24 11:51 97.7 F 90 18 128/61 11/21/24 07:56 97.5 F L 70 18 140/73 H 95 General Appearance: positive No acute distress and Alert; negative Anxious Eyes Bilateral: positive Normal inspection, PERRL and EOMI ENT: positive ENT inspection nml, Pharynx nml and No signs of dehydration Neck: positive Nml inspection, Thyroid nml and No JVD Respiratory: positive Chest non-tender, No respiratory distress and Breath sounds nml; negative Wheezes, Rales or Rhonchi Cardiovascular: positive Regular rate & rhythm, No murmur and No gallop Peripheral Pulses: positive 2+ Abdomen: positive Non-tender, No organomegaly, Nml bowel sounds and No distention Back: positive Nml inspection; negative CVA tenderness (R) or CVA tenderness (L) Skin: positive Color nml, No rash, Warm and Dry Extremities: positive Non-tender, Full ROM, Nml appearance and No pedal edema Neurologic/Psychiatric: positive Oriented x3, Motor nml and Mood/affect nml LABS 11/19/24 16:26 11/20/24 07:46 DIAGNOSTIC IMAGING Diagnostic Imaging Results: Final report reviewed FOLLOW UP Follow Up: Follow up with PCP. Follow up with GI. TIME SPENT Time Spent in Discharge (Minutes): 35 Discharge Plan Discharge Patient Disposition: 01 Home, Self Care Condition: Stable Prescriptions: New lidocaine HCl 2 % Solution 5 ml mucous membrane Q4H PRN (Reason: Mouth Sore Pain) Qty: 100 0RF Continued atorvastatin 40 MG tablet 40 mg PO QPM Qty: 15 0RF ondansetron 4 MG tablet,disintegrating 4 mg translingual Q6H PRN (Reason: Nausea / Vomiting) Qty: 10 0RF furosemide 20 mg tablet 20 mg PO DAILY Patient Comments: TAKE 1 TABLET BY MOUTH DAILY atenolol 100 mg tablet 100 mg PO DAILY Patient Comments: TAKE 1 TABLET BY MOUTH DAILY hydralazine 50 mg tablet 50 mg PO TID Patient Comments: TAKE ONE TABLET BY MOUTH THREE TIMES DAILY methylprednisolone 4 mg tablets,dose pack Patient Comments: per hasn't started yet. potassium chloride 10 mEq tablet,ER particles/crystals 10 meq PO DAILYWM Patient Comments: TAKE 1 TABLET BY MOUTH DAILY FUROSEMIDE AND WITH FOOD Held oxycodone 15 mg tablet 15 mg PO Q4H Hold Instructions: Resume on 11/28/24. Please resume your lower dose of oxycodone. Patient Comments: TAKE 1 TABLET BY MOUTH EVERY 4 HOURS Diet: Regular Interventions: Belongings Inventory Last Done: 11/21/24 11:52 Discharge Last Done: 11/21/24 11:10 Discharge Checklist - Nursing Last Done: 11/21/24 11:10 Discharge Vital Signs (30 Minutes) Last Done: 11/21/24 11:51 Health Concerns: You came in because you were confused. We did extensive testing on you including testing your urine for infection, which was negative. We also checked lab workyou have no signs of infection. Your white count, which can be indicative of an infection, was negative. We also checked your liver numbers, electrolytes, and they were all normal. We did imaging while you were here as well. This included a head CT, which was unremarkable. We also did an MRI of the brain which showed no acute stroke or bleed. An abdomen/pelvis CT and was also completed which showed evidence of liver disease. We discussed this earlier todayI would like you to follow-up very closely with your primary care provider. You will likely need further imaging in the outpatient setting, including a ultrasound/FibroScan in the outpatient setting. You also need follow-up with the vitamin manager. Please maintain your earlier dose of oxycodone, and not the increased 15 mg dose. This slight increase may have caused your altered mentation. I know you are concerned about this tongue ulceration. As discussed, I prescribed a lidocaine swish and spit which would numb the area so you can eat better. I would like you to let your PCP know, so they can have you follow-up with the ENT doctor in the outpatient setting. We are glad you are feeling better, thank you for allowing us to take care of you. Print Language: Nepalese Patient Instructions: ED Confusion Stand Alone Forms: PCP List Follow-up Care: TAINA PAGE PA-C [Primary Care Provider, Physician Head Char Filter Tank Tender] Vitals documented within 30 minutes of discharge?: Yes (see discharge vitals)"
--- NOTE | 2024-11-21 11:49 | PHARMACY PROGRESS NOTE ---
Best Possible Medication History Admit Date and Time: 11/20/24 [id number] Home Medications Medication Instructions Recorded Confirmed Type atorvastatin 40 mg tablet 40 mg PO QPM ##15 02/28/18 0 11/19/24 Rx ondansetron 4 mg disintegrating 4 mg translingual Q6H PRN Nausea / 11/06/22 11/19/24 Rx tablet Vomiting #10 tabs furosemide 20 mg tablet 20 mg PO DAILY 11/19/2410/31 History atenolol 100 mg tablet 100 mg PO DAILY 11/21/24 History hydralazine 50 mg tablet 50 mg PO TID 11/21/24 History lidocaine HCl 2 % mucosal solution 5 ml mucous membran e Q4H PRN Mouth 11/21/24 Rx Sore Pain #100 mL methylprednisolone 4 mg tablets in mg 11/21/24 Histor y a dose pack oxycodone 15 mg tablet 15 mg PO Q4H 11/21/24 History Held on 11/21/24. Instructions: Resume on 11/28/24. Please resume your lower dose of oxycodone. potassium chloride 10 mEq 10 meq PO DAILYWM 11/21/24 0 11/21/24 History tablet,extended release(part/cryst) Processed by: Pharmacy (Medication reconciliation completed by Sports PhysicianJorge) Medications reviewed in ED?: No Medication History completed: Yes Patient Interview: Completed Secondary Source(s): Insurance records [facility] Statement: As the person ultimately responsible for medication therapy, providers are able to order a medication from an existing home medication list in [facility] via the "Reconcile Routine" prior to Confirmation of that medication by developer support engineer. Such practice is discouraged except when the physician, in their clinical judgment, deems that a medical need exists for a medication without regard to previous use.
[2024-11-21 11:52] VITALS: BP 128/61; TEMP 97.7
--- NOTE | 2024-11-22 19:15 | ED Physician Documentation ---
ED Addendum Addendum Addendum: The patient was to be admitted for altered mental status and had orders written. She remained in the ER until bed available became available on the floor and the hospitalist service took over care. No problems here in the ER. Disposition admitted to the hospitalist service Diagnoses: 1. Altered mental status 2. Cirrhosis of liver 3. Tongue ulceration Discharge Plan Discharge Patient Disposition: ED Place in Observation Condition: Stable Clinical Impression: Cirrhosis of liver, Altered mental status, Tongue ulcer Interventions: ED Admission Assessment Last Done: 11/20/24 16:36 Vitals documented within 30 minutes of discharge?: Yes (see discharge vitals)
[2024-11-23 13:10] LABS: HSV-1 DNA Negative (Negative); HSV-2 DNA Negative (Negative)
== END 2024-11-21 11:53 | disposition home or self-care (01) ==
LOC: MS3 15:23 → ED 15:23 → MS3 11-20 18:00
PROVIDERS: ADMIT Hospitalist; ATTEND Hospitalist